=== PATIENT | female | born 1950 | race Caucasian/White ===

== ENCOUNTER 2016-10-20 10:00 | Inpatient (IN) | payer MEDICARE, BC ==
--- NOTE | 2016-10-15 01:06 | HP ---
HISTORY AND PHYSICAL: DATE OF SURGERY: 10/20/16 PROCEDURE: Left total knee arthroplasty. HISTORY OF PRESENT ILLNESS: Ms. Flores is 65-year-old female continued complaints of left knee pain secondary to advanced osteoarthritis. She has failed conservative management and has elected to proceed with a left total knee arthroplasty, which is scheduled for 10/20/16. PAST MEDICAL HISTORY: RA, Sjogren's, hypertension, high cholesterol, sleep apnea, breast cancer, skin cancer and abnormal EKG. PAST SURGICAL HISTORY: Left total hip arthroplasty, 2-level ACDF, right knee ACL reconstruction, left breast lumpectomy, partial hysterectomy, appendectomy, tonsillectomy. CURRENT MEDICATIONS: 1. Melatonin. 2. Lipitor. 3. Zoloft. 4. Multivitamin. 5. Tiazac. 6. Hydrochlorothiazide/triamterene. 7. Tenormin. 8. Coenzyme-Q10. 9. Celebrex. 10. Baby aspirin. 11. Naltrexone. 12. Gabapentin. 13. Atenolol. 14. Atorvastatin calcium. ALLERGIES: To SULFA. FAMILY HISTORY: Heart disease, rheumatoid arthritis, Alzheimer's and diabetes. SOCIAL HISTORY: She is a 65-year-old female, she lives alone. She is a retired teacher. She smoked for 30 years, but quit in 2004. She denies use of alcohol or illicit drugs. REVIEW OF SYSTEMS: A complete 14-point review of systems was reviewed with the patient, all was negative or noncontributory. PHYSICAL EXAMINATION GENERAL: She is well developed, well nourished, in no acute distress. VITAL SIGNS: She stands 5 feet 7 inches tall, weighs 205 pounds. Her blood pressure is 126/74, her heart rate is 58. HEENT: Normocephalic, atraumatic. NECK: Supple. No palpable lymph nodes. Trachea is midline. PULMONARY: Lungs are clear to auscultation bilaterally. No wheezes, rhonchi or rales. CARDIO: Regular rate and rhythm. Strong S1 and S2. No murmurs, gallops or rubs. No peripheral edema. ABDOMEN: Soft, nontender, nondistended. NEUROLOGIC: She is alert and oriented x3. Cranial nerves II through XII are intact. MUSCULOSKELETAL: Left lower extremity, the skin is intact. She has moderate joint effusion. Tenderness over the medial and lateral joint line. No varus or valgus instability. She walks with a slightly antalgic type gait favoring her left leg. Her lower extremity muscle group strengths are intact at 5/5. She has intact strength sensation to pinprick and light touch of her both legs and feet. She has 2+ dorsalis pedis pulses. ASSESSMENT AND PLAN: Ms. Flores is 65-year-old female with continued complaints of left knee pain secondary to advanced arthritis. She has failed conservative management and has elected to proceed with a left total knee arthroscopy, which is scheduled for 10/20/16. Dr. Pablo discussed the risks and benefits of the surgery with her today and all of her questions were answered. Percocet, Colace and Coumadin were sent to her pharmacy for postoperative DVT prophylaxis and pain control. She will follow up with Dr. Pablo 10 to 14 days after the surgery. KENNETH ARCHULETA [id number]/[facility] #: [id number] ARIANE
[~2016-10-20 10:00] MED LIST: Buffered Lidocaine 1% SYR 3ML* 3 ML/SYR SYRINGE INTRADERM ONE; Dexamethasone IV* 4 MG/ML 1 ML (4 MG) IV SLOW PU ONE; DiMENhydriNATE IV* 50 MG/ML VIAL IV PUSH PRN; Esmolol* 10 MG/ML 10 ML (100 mg) ONE; Famotidine IV* 10 MG/ML 2 ML (20 mg) IV ONE; HYDROmorphone INJ* 1 MG/ML CARPUJECT SYRINGE ONE; Midazolam* 1 MG/ML 2 ML VIAL (2 MG) ONE; Morphine PF AMP (0.5MG/ML)* 5 MG/10 ML AMP ONE; Ondansetron INJ* 2 MG/ML VIAL IV PRN; PROCHLORPERAZINE INJ 5 MG/ML 2 ML VIAL IV PRN; fentaNYL* 50 MCG/ML 2 ML VIAL (100 MCG VIAL) IV PRN; fentaNYL* 50 MCG/ML 2 ML VIAL (100 MCG VIAL) ONE
[2016-10-20] MEDS ORDERED: Famotidine IV* 10 MG/ML 2 ML (20 mg) ONE (10:25)
[2016-10-20] MEDS ORDERED: ceFAZolin 2 GM PREMIX (*) 2 GM/50 ML BAG IVPB ONE (10:25)
[2016-10-20] MEDS ORDERED: Dexamethasone IV* 4 MG/ML 1 ML (4 MG) ONE (10:25)
[2016-10-20] MEDS ORDERED: HYDROmorphone INJ* 1 MG/ML CARPUJECT SYRINGE ONE (11:37)
[2016-10-20] MEDS ORDERED: fentaNYL* 50 MCG/ML 2 ML VIAL (100 MCG VIAL) ONE (11:37)
[2016-10-20] MEDS ORDERED: Naloxone* 0.4 MG/ML 1 ML VIAL IV PRN (15:44)
[2016-10-20] MEDS ORDERED: PROCHLORPERAZINE INJ 5 MG/ML 2 ML VIAL IV PRN (15:44)
[2016-10-20] MEDS ORDERED: diPHENhydraMINE IV* 50 MG/ML 1 ml VIAL (BENADRYL) IV PRN (15:44)
[2016-10-20] MEDS ORDERED: Nalbuphine* 20 MG/ML 1 ML VIAL IV PRN (15:44)
[2016-10-20] MEDS ORDERED: Ondansetron INJ* 2 MG/ML VIAL IV PRN (15:44)
[2016-10-20] MEDS ORDERED: DiMENhydriNATE IV* 50 MG/ML VIAL IV PUSH PRN (15:44)
[2016-10-20] MEDS ORDERED: Polyethylene Glycol 3350* 17 GM PACKET PO PRN (15:55)
[2016-10-20] MEDS ORDERED: Bisacodyl SUPP* 10 MG SUPP PR PRN (15:55)
--- NOTE | 2016-10-20 16:36 | RAD ---
Indication: Post op LEFT total knee replacement. Comparison: July 10, 2016 radiographs. Technique: Portable AP and cross table lateral views LEFT knee. Report: Status post total knee replacement. Anterior surgical drain in place. Post-op fluid and gas is seen in the joint space and anterior subcutaneous tissues. Alignment is anatomic. No periprosthetic fracture evident. Vascular calcifications noted. IMPRESSION: Normal post-op appearance following LEFT total knee replacement.
[2016-10-20] MEDS ORDERED: Warfarin TAB(*) 6 MG PO ONE (20:00)
[2016-10-20] MEDS: ceFAZolin 1 GM in Dextrose (*) 1 GM/50 ML BAG IVPB SCH (20:05)
[2016-10-20] MEDS: Gabapentin CAP(*) 300 MG PO SCH (20:28)
[2016-10-20] MEDS: Magnesium Hydroxide LIQ* 30 ML UDC PO SCH (20:28)
[2016-10-20] MEDS: Atenolol TAB* 50 MG PO SCH (20:28)
[2016-10-20] MEDS: Docusate CAP* 100 MG PO SCH (20:28)
--- NOTE | 2016-10-20 20:36 | CONS ---
CONSULTATION REPORT: DATE OF CONSULT: 10/20/16 PRIMARY CARE PROVIDER: Ellie Carolina MD. ATTENDING PHYSICIAN WHILE IN THE HOSPITAL: Alfredo Sinclair MD (report dictated by Celestine Thompson NP). REASON FOR MEDICAL CONSULTATION: Evaluation of comorbid medical conditions. HISTORY OF PRESENT ILLNESS: Ms. Briggs is a 65-year-old female patient with a history of rheumatoid arthritis, Sjogren's, hypertension, hyperlipidemia, JN, and a history of breast cancer. She comes in to the orthopedic services today for an elective left total knee replacement. I will defer you to Dr. Pablo's H and P for details. In short, Ms. Briggs has had longstanding issues with her bilateral lower extremities. She has had pain that has been debilitating, failing outpatient management and affecting her activities of daily living. The patient sought care with Dr. Pablo. It was felt that she would benefit from a knee replacement and she was evaluated by her primary and Cardiology due to an abnormal EKG. She had a negative stress test preoperatively. She underwent the procedure today. She was evaluated in the postoperative setting. She carries again a significant medical history and we were asked to help evaluate to help manage these problems. The patient was evaluated in the PACU. She denies having any chest pain or shortness of breath. She says that her pain is well controlled. She denies having any numbness or tingling to lower extremities. She says she does not feel nauseous. She denies having any abdominal pain or any shortness of breath. PAST MEDICAL HISTORY: Significant for: 1. Rheumatoid arthritis. 2. Sjogren's. 3. Hypertension. 4. Hyperlipidemia. 5. JN. 6. Breast cancer. SURGICAL HISTORY: 1. She has had a left total hip arthroplasty. 2. Cervical fusion. 3. Right knee ACL repair. 4. Lumpectomy. 5. Partial hysterectomy. 6. Tonsillectomy. 7. Appendectomy. HOME MEDICATIONS: Include: 1. Maxzide 1 tablet p.o. daily. 2. Simvastatin 1 tablet daily. 3. Multivitamin 1 tablet daily. 4. Melatonin 3 mg p.o. at bedtime as needed. 5. Gabapentin 300 mg p.o. at bedtime. 6. Diltiazem 1 tablet p.o. daily. 7. Atenolol 50 mg p.o. daily. ALLERGIES TO MEDICATIONS: Include TOPICAL SULFA. FAMILY HISTORY: Mother had a history of [place]. Father had a history of dementia. SOCIAL HISTORY: She is a former smoker. She does not drink alcohol. Surrogate decision maker is her brother. REVIEW OF SYSTEMS: There is no documented fever. She denies having any significant weight change. There was no double vision. There is no ear discharge. She denies having any rhinorrhea. There is no sore throat. No thyroid enlargement. She denies having any chest pain. There is no orthopnea. No nocturnal dyspnea. There is no abdominal pain. No nausea. No vomiting. No dysuria. No frequency. No loss of consciousness. No pruritus and no skin ulcerations. Review of 14 systems completed, all others negative. PHYSICAL EXAM: Reveals vital signs of blood pressure 95/56, pulse 58, respirations 14, O2 sat 97%, and temperature of 98.2. Generally, at this time, Ms. Briggs is a 65-year-old female patient. She is sitting in the PACU bed. She does not appear to be in any acute distress. HEENT: Head: Atraumatic and normocephalic. Eyes: EOMs intact. Sclerae anicteric and not pale. Throat: Oral mucosa appears to be moist. No oropharyngeal erythema. Neck: Supple. Heart: Sounds S1, S2. Regular rate and rhythm. No murmurs, rubs, or gallops. Lungs were clear to auscultation bilaterally. No wheezes, rales, or rhonchi. Abdomen was soft, flat, nontender. Bowel sounds hypoactive. Extremities: Pulses were 2+ throughout. Able to move all 4 extremities with 5/5 strength. Neurologically, the patient is awake, alert, and oriented x3. Tongue midline. Technical Support Assistant are equal. No gross focal deficits. Skin: Grossly intact. DIAGNOSTIC STUDIES/LAB DATA: Labs preoperatively revealed a WBC of 7.5, RBC of 4.79, hemoglobin 14.9, hematocrit of 44, platelet count of 265. The INR was 0.86. The sodium was 139, potassium was 4.2, chloride of 100, bicarb of 31, BUN of 17, creatinine of 0.82, glucose of 81. She had a preoperative stress test, which showed a low risk study and no perfusion defects were noted. Copy is in the report. Preop chest x-ray showed hyperinflation consistent with COPD. No active cardiopulmonary disease. EKG preop showed normal sinus rhythm with abnormal R-wave progression, rate 72. No ST elevations or T-wave inversions. Old medical records were reviewed. ASSESSMENT AND PLAN: Ms. Briggs is a 65-year-old female patient coming in to the orthopedic services today for an elective left total knee replacement. Hospitalist service was asked to evaluate in consult. Recommendations at this point are: 1. Status post left total knee replacement: Defer the management to Dr. Pablo and her team. 2. Hypertension: Blood pressure is on the low side now. It is in the 90s systolic, but it is probably secondary to Duramorph. We will go ahead and continue the beta maggie with hold parameters. I will hold it if her blood pressure is less than 100 systolically or heart rate is less than 60s and I am holding her diltiazem and her Maxzide. For the time being, we will restart these when her blood pressure is able. 3. For her rheumatoid and Sjogren's, she can follow up with Dr. Fishman. She actually was on naltrexone, she said it had been helping her, but obviously while she is here on opiates, she cannot take this medication, so she can follow with her primary and her senior marketing associate for that. Does not appear to be an active issue currently. 4. Hyperlipidemia: Continue statin therapy. 5. Obstructive sleep apnea: I have ordered a CPAP. 6. Breast cancer: Continue with her current medical regimen. 7. Code status: Full code. 8. Fluids, electrolytes, and nutrition: She will be placed on a heart healthy diet. TIME SPENT: Time spent on the consult was approximately 60 minutes; greater than half the time was spent [id number] with the patient going over the plan of care with the patient and implementing plan of care. I did discuss the plan of care with my attending, Dr. Sinclair; he is in agreement. CELESTINE THOMPSON NP CC: Ellie Carolina MD; Dr. Pablo * [id number]/[facility] #: [id number] MTDD
[2016-10-20] MEDS ORDERED: Atenolol TAB* 50 MG PO SCH (21:00)
[2016-10-20] MEDS: HYPROMELLOSE BOTH EYES PRN (21:24)
[2016-10-20] MEDS: oxyCODONE/Acetamin 5/325 MG* TAB PO PRN (22:41)
[2016-10-21] MEDS: ceFAZolin 1 GM in Dextrose (*) 1 GM/50 ML BAG IVPB SCH ×2 (03:59→12:03)
[2016-10-21] MEDS: oxyCODONE/Acetamin 5/325 MG* TAB PO PRN ×3 (04:03→12:28)
[2016-10-21] MEDS ORDERED: Ondansetron INJ* 2 MG/ML VIAL IV PRN (05:00)
[2016-10-21] MEDS ORDERED: Ondansetron TAB* 4 MG PO PRN (05:00)
[2016-10-21] MEDS ORDERED: oxyCODONE/Acetamin 5/325 MG* TAB PO PRN (05:00)
[2016-10-21] MEDS ORDERED: Morphine INJ* 10 MG/ML 1 ML CARPUJECT IV PRN (05:00)
[2016-10-21] MEDS ORDERED: diPHENhydraMINE PO* 25 MG PO PRN (05:00)
[2016-10-21] MEDS ORDERED: oxyCODONE TAB* 5 MG TAB PO PRN (05:00)
[2016-10-21] MEDS ORDERED: Melatonin (NF) 3 MG TAB PO PRN (05:00)
[2016-10-21 07:12] LABS: Hematocrit 32 % (35-47); Hemoglobin 11.1 g/dl (12.0-16.0)
[2016-10-21 07:26] LABS: BUN/Creatinine Ratio 27.1 (8-20); Calcium 8.9 mg/dL (8.6-10.3); EGFR African American 107.3 (>60); EGFR Non-African American 83.5 (>60); Potassium 4.1 mmol/L (3.5-5.0)
--- NOTE | 2016-10-21 07:47 | PN ---
Progress Note - Progress Note SOAP: Subjective: Pt. is alert, pain is controlled. Objective: LLE - drain removed, 350 cc ss drainage. tip intact. distally +df/pf, full sens lt, 2+ dp pulse. Vital Signs: Temp Pulse Resp BP Pulse Ox 97.9 F 64 18 106/52 95 10/21/16 07:22 10/21/16 07:22 10/21/16 07:22 10/21/16 07:22 10/21/16 07:22 Laboratory Results - last 24 hr 10/21/16 10/21/16 10/21/16 06:50 06:50 06:51 Hgb 11.1 L Hct 32 L INR (Anticoag Therapy) 0.98 Sodium 135 Potassium 4.1 Chloride 100 L Carbon Dioxide 26 Anion Gap 9 BUN 19 Creatinine 0.70 Est GFR ( Amer) 107.3 Est GFR (Non-Af Amer) 83.5 BUN/Creatinine Ratio 27.1 H Glucose 142 H Calcium 8.9 Assessment: 65 yo F pod 1 s/p LTKA Plan: wbat lle pt/ot xrays satisfactory 8 mg coumadin tonight with lovenox bridge
[2016-10-21] MEDS: Magnesium Hydroxide LIQ* 30 ML UDC PO SCH ×2 (08:13→19:45)
[2016-10-21] MEDS: Atorvastatin* 10 MG TAB PO SCH (08:13)
[2016-10-21] MEDS: Docusate CAP* 100 MG PO SCH ×2 (08:13→19:45)
[2016-10-21] MEDS: HYPROMELLOSE BOTH EYES PRN (08:16)
[2016-10-21] MEDS ORDERED: DILTIAZEM PO SCH (09:00)
--- NOTE | 2016-10-21 12:12 | OP ---
DATE OF OPERATION: 10/20/16 - ROOM #346 DATE OF : 46 SURGEON: Dori Pablo MD. COMPUTER ENGINEERING PROFESSOR: KENNETH Barkley. ANESTHESIOLOGIST: Dr. Briggs. ANESTHESIA: Spinal with adductor nerve block. PRE-OP DIAGNOSIS: Severe degenerative osteoarthritis of the left knee joint, valgus deformity. POST-OP DIAGNOSIS: Severe degenerative osteoarthritis of the left knee joint, valgus deformity. OPERATIVE PROCEDURE: Left total knee arthroplasty. HARDWARE USED: [employer] cemented total knee hardware, two packages of Simplex bone cement were used. For the femur, a size 4 left posterior stabilized Legion femoral component. For the tibia, a size 3 left tibial base plate. For the insert, 9 mm posterior stabilized articular insert; and for the patella, a 29 mm 7.5 thickness 3-peg all poly patella. TOURNIQUET TIME: 71 minutes. COMPLICATIONS: None. ESTIMATED BLOOD LOSS: 300 cc. SPECIMENS: Bone and cartilage from the left knee joint sent to Pathology. BRIEF HISTORY/INDICATIONS: Ms. Chester Flores is a 65-year-old female with years of increasingly severe left knee pain and deformity. She failed conservative treatment with anti-inflammatories, pain medications, intraarticular injections , and physical therapy. She had radiographs showing [id number] arthritis and severe valgus deformity. She elected to undergo left total knee arthroplasty due to continued pain and decreased quality of life. Informed consent was obtained from the patient. She understood the risks of surgery included, but were not limited to, bleeding, infection, damage to nearby structures, continued pain, need for further surgery, intraoperative fracture, nerve palsy, ligament incompetence, hardware failure or loosening, stroke, heart attack, blood clot, and . She wishes to proceed. INTRAOPERATIVE FINDINGS: Intraoperatively, the patient was noted to have complete loss of cartilage and deformation in the lateral and patellofemoral compartments. She had lateral femoral condylar hypoplasia. Preop range of motion was 15 to 120 degrees of flexion, with 20 degree valgus deformity. Postoperatively, the patient had full extension to 125 degrees of flexion, with 6 degrees of valgus alignment. She did have osteopenia noted throughout the procedure. DESCRIPTION OF PROCEDURE: Ms. Chester Flores was identified in the preanesthesia unit. Her left lower extremity was marked as the correct operative side. Informed consent was signed and placed in the chart. The patient was taken to the operating room and placed under spinal anesthesia with an adductor nerve block. Vega catheter was placed. Tourniquet was placed on the left thigh. The left lower extremity was prepped and draped in the usual sterile fashion. Preop time-out was made to correctly identify the patient's side and site. Appropriate preoperative antibiotics were given within 1 hour of incision. Tourniquet was inflated until the tourniquet time for this procedure was 71 minutes. A 12 cm midline incision was made with a 10-blade and carried down to the extensor mechanism. The extensor mechanism was then incised using medial parapatellar arthrotomy, using a new 10-blade. The patella was subluxed laterally. Electrocautery was used to subperiosteally elevate soft tissue off the superomedial tibia to the mid sagittal plane. Extensive osteophytes were noted along the distal femur and patella. These were removed with a rongeur. The knee was flexed up. Anterior horn of the lateral meniscus was released. ACL was no longer visible. A drill was used to enter the distal femur. Intramedullary distal femoral cutting guide was pinned into proper position on the distal femur. Lateral femoral condylar hypoplasia was noted and accounted for. Distal femoral cut was made with an oscillating saw. Next, the external rotation guide was placed on the distal femur and the distal femur was sized to a size 4. Size 4 multi-cutting jig was pinned on the distal femur. Oscillating saw was used to make the appropriate chamfer cuts. Any bony fragments were carefully removed. Next, the PCL was sharply released. The tibia was subluxed anteriorly. Extramedullary tibial cutting guide was pinned on the proximal tibia. Oscillating saw was used to make the appropriate proximal tibial cut. The bone was carefully removed. This cut was made perpendicular to the mechanical axis of the tibia. The knee was brought out into full extension. A spacer block had good fit. There was significant tightness laterally. At this time, the posterior capsule was sharply released with electrocautery along the bone edge. Any osteophytes were carefully removed laterally. A 15-blade was used to perform pie-crusting technique of the LCL. At this point a spacer block was placed and there was better medial lateral ligamentous balancing. Good flexion and extension gap balancing. The knee was flexed up. Lamina coordinator of placement was placed both medially and laterally. Any remaining meniscus was carefully removed using electrocautery. Curved osteotome was used to remove any osteophytes along the posterior femoral condyles. The knee was flexed up. A size 4 left femoral trial was impacted onto the distal femur. The box for the posterior stabilized implant was prepared using a reamer and box cut osteotome. A size 3 tibial tray and 9-mm insert trial were placed and the knee was taken through a range of motion. There was full extension to 130 degrees of flexion, with good patello-femoral tracking. The patella was everted. 7 mm of patellar bone and cartilage were carefully removed from the patella using an oscillating saw. The patella was sized to a size 29. The 3 peg holes were drilled through to size 29 guide. A 7.5 thickness size 29 patella trial was placed and the knee was taken through a range of motion. There was good patellofemoral tracking. All trials were carefully removed. The tibia was subluxed anteriorly and sized to a size 3. The size 3 keel punch was used to prepare the proximal tibia. All bony cut surfaces were copiously irrigated with sterile saline and dried. Final implants were cemented into place, starting with the tibia, followed by the femur, and last the patella. A 9-mm insert trial was placed and the knee was brought out into full extension. The cement was allowed to fully cure and the tourniquet was turned down at 71 minutes. Once the cement was fully cured, the insert trial was removed. Electrocautery was used to obtain meticulous hemostasis. Any excess cement was carefully removed. A 9-mm posterior stabilized insert trial was chosen as the final implant and this was locked into position on the tibial tray. Stability of the insert was checked and rechecked and noted to be stable. The patient's knee was copiously irrigated with sterile saline. The extensor mechanism was closed using interrupted #1 Vicryl over a medium Hemovac drain. The rest of the incision was closed in a layered fashion using 0 and 2-0 Vicryls. The skin was closed using running 3-0 nylon suture. Sterile Xeroform , 4x4s, and Webril were used to cover the incision. Bobo wrap and cold pack were placed over this. The patient's anesthesia was reversed without difficulty. She was taken to the PACU in stable condition. Intended weightbearing will be weightbearing as tolerated. Intended DVT prophylaxis will be Coumadin with a Lovenox bridge. [id number]/[facility] #: [id number] [facility] HOSPITALMaribell
[2016-10-21] MEDS ORDERED: traMADol TAB* 50 MG PO PRN (14:13)
[2016-10-21] MEDS: Enoxaparin(*) 30 MG/0.3 ML SYR SUBCUT SCH (16:02)
[2016-10-21] MEDS ORDERED: Warfarin TAB(*) 4 MG PO ONE (17:00)
--- NOTE | 2016-10-21 19:32 | PN ---
Subjective Date of Service: 10/21/16 Interval History: This is a 65 yo female s/p L TKR with h/o RA, Sjogrens, HTN, HTN, JN. She reports that she is doing quite well post operatively working with PT. No abdominal pain, CP, n/v. She developed itching and flushing in her face last night and it seemed to progress this afternoon. No angioedema, rash or dyspnea. She believes it's related to the Percocet, she does not recall taking any prior opiates but reports tolerating tramadol well with prior THR. Objective Active Medications: Acetaminophen (Tylenol Tab*) 650 mg PO Q4H PRN PRN Reason: PAIN OR TEMPERATURE Atenolol (Tenormin Tab*) 50 mg PO BEDTIME [facility] Last Admin: 10/20/16 20:28 Dose: 50 mg Atorvastatin Calcium (Lipitor*) 5 mg PO DAILY [facility] Last Admin: 10/21/16 08:13 Dose: 5 mg Bisacodyl (Dulcolax Supp*) 10 mg MI DAILY PRN PRN Reason: constipation Diphenhydramine HCl (Benadryl Po*) 25 mg PO Q6H PRN PRN Reason: itching Last Admin: 10/21/16 14:07 Dose: 25 mg Docusate Sodium (Colace Cap*) 100 mg PO BID [facility] Last Admin: 10/21/16 08:13 Dose: 100 mg Enoxaparin Sodium (Lovenox(*)) 30 mg SUBCUT Q24H [facility] Last Admin: 10/21/16 16:02 Dose: 30 mg Gabapentin (Neurontin Cap(*)) 300 mg PO BEDTIME [facility] Last Admin: 10/20/16 20:28 Dose: 300 mg Lactated Ringer's (Lactated Ringers 1000 Ml Bag*) 1,000 mls @ 100 mls/hr IV PER RATE [facility] Last Admin: 10/21/16 06:38 Dose: 100 mls/hr Lactulose (Lactulose*) 30 ml PO Q6H PRN PRN Reason: constipation Magnesium Hydroxide (Milk Of Magnesia Liq*) 30 ml PO BID [facility] Last Admin: 10/21/16 08:13 Dose: 30 ml Melatonin (Melatonin (Nf)) 3 mg PO BEDTIME PRN PRN Reason: INSOMNIA Morphine Sulfate (Morphine Inj (Syringe)*) 5 mg IV Q2H PRN PRN Reason: PAIN - BREAKTHROUGH Pto Nf Med* Hypromellose (Ophth) [Genteal Severe] 1 Drop) 1 drop BOTH EYES QID PRN PRN Reason: DRY EYE Last Admin: 10/21/16 08:16 Dose: 1 drop Ondansetron HCl (Zofran Inj*) 4 mg IV Q6H PRN PRN Reason: nausea Ondansetron HCl (Zofran Tab*) 4 mg PO Q6H PRN PRN Reason: NAUSEA Pharmacy Profile Note (Coumadin Daily Reminder*) 1 note FOLLOW UP 1700 EALR Last Admin: 10/21/16 16:48 Dose: 1 note Polyethylene Glycol/Electrolytes (Miralax*) 17 gm PO DAILY PRN PRN Reason: Constipation Tramadol HCl (Ultram*) 100 mg PO Q6H PRN PRN Reason: PAIN Vital Signs: Temp Pulse Resp BP Pulse Ox 98.5 F 69 16 118/55 94 10/21/16 15:35 10/21/16 15:35 10/21/16 18:32 10/21/16 15:35 10/21/16 16:33 Appearance: Well appearing, in NAD. Very pleasant Respiratory: Symmetrical Chest Expansion and Respiratory Effort, Clear to Auscultation Cardiovascular: NL Sounds; No Murmurs; No JVD, RRR Abdominal: NL Sounds; No Tenderness; No Distention Extremities: No Edema Skin: - - face is slightly flushed, otherwise no rash appreciated Neurological: Alert and Oriented x 3 Result Diagrams: 10/21/16 06:50 10/21/16 06:50 Assess/Plan/Problems-Billing Assessment: This is a 65 yo female s/p L TKR by Dr Pablo with a h/o RA, Sjorgrens, HTN, HLD , JN. Hospitalists consulting for medical co-management - Patient Problems (1) Status post total knee replacement, left Comment: POD #1 s/p L TKR DVT prophylaxis and dispo per surg (2) Itching due to drug Comment: No evidence of hives or anaphylaxis Perioperative abx have been completed May be Percocet Will trial stopping oxycodone product and use Tramadol for pain control, which she has been successful with in the past (3) Rheumatoid arthritis Comment: Managed with low dose naltrexone, being held post op for appropriate pain management (4) JN (obstructive sleep apnea) Comment: Using home CPAP machine (5) Sjogrens syndrome (6) Hypertension Comment: Still mildly hypotensive Cont to hold home antihypertensives (7) Hyperlipidemia Status and Disposition: Discharge planning per surg. No acute medical concerns
[2016-10-21] MEDS: Acetaminophen TAB* 325 MG PO PRN (19:44)
[2016-10-21] MEDS: Atenolol TAB* 50 MG PO SCH (19:45)
[2016-10-21] MEDS: Gabapentin CAP(*) 300 MG PO SCH (19:45)
[2016-10-21] MEDS: traMADol TAB* 50 MG PO PRN (22:30)
[2016-10-22] MEDS: Acetaminophen TAB* 325 MG PO PRN (02:34)
[2016-10-22] MEDS: traMADol TAB* 50 MG PO PRN (04:41)
[2016-10-22 07:06] LABS: Hematocrit 29 % (35-47); Hemoglobin 9.9 g/dl (12.0-16.0)
[2016-10-22] MEDS ORDERED: HYDROcodone/ACETAMIN 5-325 MG* 1 TAB PO PRN (08:09)
--- NOTE | 2016-10-22 08:14 | PN ---
Progress Note - Progress Note SOAP: Subjective: []Patient seen OOB in chair. Had an allergic reaction yesterday. Face was pink and warm, body puritis was present, all now resolved. She thinks it was due to the antibiotics not the narcotics as she has not had issues with narcotics in the past. The tramadol is not helping her pain as well. She would like to try hydrocodone. Plans on discharge home tomorrow. Objective: [] Vital Signs Temp 99.2 F 10/22/16 07:19 Pulse 66 10/22/16 07:19 Resp 16 10/22/16 07:19 BP 102/57 10/22/16 07:19 Pulse Ox 98 10/22/16 07:19 Intake & Output 10/21/16 10/22/16 10/22/16 18:59 06:59 18:59 Intake Total 1582 1140 Output Total 750 550 250 Balance 832 590 -250 Intake: IV Fluids 397 LR 397 IVPB 55 LR 55 Oral 1130 1140 Output: Urine 400 550 250 Vega 350 Other: Date of Last Bowel 10/21/16 Movement # Bowel Movements 0 Vital Signs Temp 99.2 F 10/22/16 07:19 Pulse 66 10/22/16 07:19 Resp 16 10/22/16 07:19 BP 102/57 10/22/16 07:19 Pulse Ox 98 10/22/16 07:19 Intake & Output 10/21/16 10/22/16 10/22/16 18:59 06:59 18:59 Intake Total 1582 1140 Output Total 750 550 250 Balance 832 590 -250 Intake: IV Fluids 397 LR 397 IVPB 55 LR 55 Oral 1130 1140 Output: Urine 400 550 250 Vega 350 Other: Date of Last Bowel 10/21/16 Movement # Bowel Movements 0 Left knee dressings removed Incision benign calf non tender and soft Guanako's negative +DF/PF Neuro intact new dressings applied Assessment: []s/p Left total knee arthroplasty POD #2 Plan: []PT/OT WBAT Hydrocodone Coumadin 4mg today Home tomorrow
[2016-10-22] MEDS: Atorvastatin* 10 MG TAB PO SCH (08:26)
[2016-10-22] MEDS: Docusate CAP* 100 MG PO SCH ×2 (08:26→20:56)
[2016-10-22] MEDS: Magnesium Hydroxide LIQ* 30 ML UDC PO SCH ×2 (08:43→22:37)
[2016-10-22] MEDS: HYDROcodone/ACETAMIN 5-325 MG* 1 TAB PO PRN ×3 (08:46→16:14)
--- NOTE | 2016-10-22 13:41 | PN ---
Subjective Date of Service: 10/22/16 Interval History: Patient denies any acute complaints. She reports her facial flushing and itching have resolved. She did not get adequate pain relief from the Tramadol. She was started on [place] by ortho this am and is tolerating this well. Denies CP, SOB, abd pain, n/v. Objective Active Medications: Acetaminophen (Tylenol Tab*) 650 mg PO Q4H PRN PRN Reason: PAIN OR TEMPERATURE Last Admin: 10/22/16 02:34 Dose: 650 mg Hydrocodone Bitart/Acetaminophen ([place] 5-325 Tab*) 1 tab PO Q3H PRN PRN Reason: PAIN - MODERATE Last Admin: 10/22/16 12:30 Dose: 1 tab Hydrocodone Bitart/Acetaminophen ([place] 5-325 Tab*) 2 tab PO Q3H PRN PRN Reason: moderate to severe pain Atenolol (Tenormin Tab*) 50 mg PO BEDTIME [facility] Last Admin: 10/21/16 19:45 Dose: 50 mg Atorvastatin Calcium (Lipitor*) 5 mg PO DAILY [facility] Last Admin: 10/22/16 08:26 Dose: 5 mg Bisacodyl (Dulcolax Supp*) 10 mg CO DAILY PRN PRN Reason: constipation Diphenhydramine HCl (Benadryl Po*) 25 mg PO Q6H PRN PRN Reason: itching Last Admin: 10/21/16 14:07 Dose: 25 mg Docusate Sodium (Colace Cap*) 100 mg PO BID [facility] Last Admin: 10/22/16 08:26 Dose: 100 mg Enoxaparin Sodium (Lovenox(*)) 30 mg SUBCUT Q24H [facility] Last Admin: 10/21/16 16:02 Dose: 30 mg Gabapentin (Neurontin Cap(*)) 300 mg PO BEDTIME [facility] Last Admin: 10/21/16 19:45 Dose: 300 mg Lactated Ringer's (Lactated Ringers 1000 Ml Bag*) 1,000 mls @ 100 mls/hr IV PER RATE [facility] Last Admin: 10/21/16 06:38 Dose: 100 mls/hr Lactulose (Lactulose*) 30 ml PO Q6H PRN PRN Reason: constipation Magnesium Hydroxide (Milk Of Magnesia Liq*) 30 ml PO BID [facility] Last Admin: 10/22/16 08:43 Dose: Not Given Melatonin (Melatonin (Nf)) 3 mg PO BEDTIME PRN PRN Reason: INSOMNIA Morphine Sulfate (Morphine Inj (Syringe)*) 5 mg IV Q2H PRN PRN Reason: PAIN - BREAKTHROUGH Pto Nf Med* Hypromellose (Ophth) [Genteal Severe] 1 Drop) 1 drop BOTH EYES QID PRN PRN Reason: DRY EYE Last Admin: 10/21/16 08:16 Dose: 1 drop Ondansetron HCl (Zofran Inj*) 4 mg IV Q6H PRN PRN Reason: nausea Ondansetron HCl (Zofran Tab*) 4 mg PO Q6H PRN PRN Reason: NAUSEA Pharmacy Profile Note (Coumadin Daily Reminder*) 1 note FOLLOW UP 1700 [facility] Last Admin: 10/21/16 16:48 Dose: 1 note Polyethylene Glycol/Electrolytes (Miralax*) 17 gm PO DAILY PRN PRN Reason: Constipation Tramadol HCl (Ultram*) 100 mg PO Q6H PRN PRN Reason: PAIN Last Admin: 10/22/16 04:41 Dose: 100 mg Warfarin Sodium (Coumadin Tab(*)) 4 mg PO ONCE@1700 ONE PRN Reason: Protocol Stop: 10/22/16 17:01 Vital Signs: Temp Pulse Resp BP Pulse Ox 98.1 F 63 16 111/58 96 10/22/16 11:46 10/22/16 11:46 10/22/16 12:30 10/22/16 11:46 10/22/16 11:46 Oxygen Devices in Use Now: None Appearance: Patient appears well. She is sitting at the side of her bed finishing lunch. She is in NAD Neck: NL Appearance and Movements; NL JVP Respiratory: Symmetrical Chest Expansion and Respiratory Effort Cardiovascular: NL Sounds; No Murmurs; No JVD, RRR Abdominal: NL Sounds; No Tenderness; No Distention Extremities: No Edema Skin: No Rash or Ulcers Neurological: Alert and Oriented x 3 Result Diagrams: 10/22/16 06:39 10/21/16 06:50 Assess/Plan/Problems-Billing Assessment: This is a 65 yo female s/p L TKR by Dr Pablo with a h/o RA, Sjorgrens, HTN, HLD , JN. Hospitalists consulting for medical co-management - Patient Problems (1) Status post total knee replacement, left Comment: POD #2 s/p L TKR DVT prophylaxis and dispo per surg (2) Itching due to drug Comment: Now resolved No evidence of hives or anaphylaxis Likely drug related Unsure which medication was offending, possibly her periop abx She is now tolerating hydrocodone well, tramadol was ineffective in providing complete pain relief (3) Rheumatoid arthritis Comment: Managed with low dose naltrexone, being held post op for appropriate pain management (4) JN (obstructive sleep apnea) Comment: Using home CPAP machine (5) Sjogrens syndrome (6) Hypertension Comment: Still mildly hypotensive Cont to hold home antihypertensives (7) Hyperlipidemia Status and Disposition: Discharge planning per surg. No acute medical concerns
[2016-10-22] MEDS: Enoxaparin(*) 30 MG/0.3 ML SYR SUBCUT SCH (16:15)
[2016-10-22] MEDS ORDERED: Warfarin TAB(*) 4 MG PO ONE (17:00)
[2016-10-22] MEDS: Atenolol TAB* 50 MG PO SCH (20:56)
[2016-10-22] MEDS: Gabapentin CAP(*) 300 MG PO SCH (20:56)
[2016-10-23] MEDS: HYDROcodone/ACETAMIN 5-325 MG* 1 TAB PO PRN ×2 (01:48→07:29)
[2016-10-23 07:12] LABS: Hematocrit 30 % (35-47); Hemoglobin 10.3 g/dl (12.0-16.0)
[2016-10-23] MEDS: Docusate CAP* 100 MG PO SCH (07:29)
[2016-10-23] MEDS: Magnesium Hydroxide LIQ* 30 ML UDC PO SCH (07:43)
[2016-10-23] MEDS: Atorvastatin* 10 MG TAB PO SCH (08:37)
[2016-10-23] MEDS ORDERED: Triamterene/HCTZ 75-50 MG* TAB PO SCH (09:00)
[2016-10-23] MEDS ORDERED: Diltiazem CD CAP* 180 MG PO SCH (09:00)
[2016-10-23] MEDS: traMADol TAB* 50 MG PO PRN (12:57)
[2016-10-23 14:09] VITALS: BP 140/60
--- NOTE | 2016-10-23 14:37 | PN ---
Subjective Date of Service: 10/23/16 Interval History: Patient reports she was having more pain earlier this afternoon. She stated that she tried to go longer between pain medications. Her pain is controlled again now. She denies any new complaints. Continue to deny CP, SOB, N/V. Doing well with PT. Plan for discharge today. Objective Active Medications: Acetaminophen (Tylenol Tab*) 650 mg PO Q4H PRN PRN Reason: PAIN OR TEMPERATURE Last Admin: 10/22/16 02:34 Dose: 650 mg Hydrocodone Bitart/Acetaminophen ([place] 5-325 Tab*) 1 tab PO Q3H PRN PRN Reason: PAIN - MODERATE Last Admin: 10/23/16 07:29 Dose: 1 tab Hydrocodone Bitart/Acetaminophen ([place] 5-325 Tab*) 2 tab PO Q3H PRN PRN Reason: moderate to severe pain Last Admin: 10/22/16 20:52 Dose: 2 tab Atenolol (Tenormin Tab*) 50 mg PO BEDTIME [facility] Last Admin: 10/22/16 20:56 Dose: 50 mg Atorvastatin Calcium (Lipitor*) 5 mg PO DAILY [facility] Last Admin: 10/23/16 08:37 Dose: 5 mg Bisacodyl (Dulcolax Supp*) 10 mg AL DAILY PRN PRN Reason: constipation Diltiazem HCl (Cardizem Cd Cap*) 180 mg PO DAILY [facility] Last Admin: 10/23/16 07:43 Dose: Not Given Diphenhydramine HCl (Benadryl Po*) 25 mg PO Q6H PRN PRN Reason: itching Last Admin: 10/21/16 14:07 Dose: 25 mg Docusate Sodium (Colace Cap*) 100 mg PO BID [facility] Last Admin: 10/23/16 07:29 Dose: 100 mg Enoxaparin Sodium (Lovenox(*)) 30 mg SUBCUT Q24H [facility] Last Admin: 10/22/16 16:15 Dose: 30 mg Gabapentin (Neurontin Cap(*)) 300 mg PO BEDTIME [facility] Last Admin: 10/22/16 20:56 Dose: 300 mg Lactulose (Lactulose*) 30 ml PO Q6H PRN PRN Reason: constipation Last Admin: 10/23/16 07:30 Dose: 30 ml Magnesium Hydroxide (Milk Of Magnesia Liq*) 30 ml PO BID [facility] Last Admin: 10/23/16 07:43 Dose: Not Given Melatonin (Melatonin (Nf)) 3 mg PO BEDTIME PRN PRN Reason: INSOMNIA Morphine Sulfate (Morphine Inj (Syringe)*) 5 mg IV Q2H PRN PRN Reason: PAIN - BREAKTHROUGH Pto Nf Med* Hypromellose (Ophth) [Genteal Severe] 1 Drop) 1 drop BOTH EYES QID PRN PRN Reason: DRY EYE Last Admin: 10/21/16 08:16 Dose: 1 drop Ondansetron HCl (Zofran Inj*) 4 mg IV Q6H PRN PRN Reason: nausea Ondansetron HCl (Zofran Tab*) 4 mg PO Q6H PRN PRN Reason: NAUSEA Pharmacy Profile Note (Coumadin Daily Reminder*) 1 note FOLLOW UP 1700 [facility] Last Admin: 10/22/16 17:40 Dose: 1 note Polyethylene Glycol/Electrolytes (Miralax*) 17 gm PO DAILY PRN PRN Reason: Constipation Tramadol HCl (Ultram*) 100 mg PO Q6H PRN PRN Reason: PAIN Last Admin: 10/23/16 12:57 Dose: 100 mg Triamterene/HCTZ (Maxzide 75-50*) 1 tab PO DAILY [facility] Last Admin: 10/23/16 07:43 Dose: Not Given Vital Signs: Temp Pulse Resp BP Pulse Ox 98.7 F 73 16 140/60 98 10/23/16 11:29 10/23/16 11:29 10/23/16 12:57 10/23/16 11:29 10/23/16 11:29 Oxygen Devices in Use Now: None Appearance: Well appearing, in NAD Neck: NL Appearance and Movements; NL JVP Respiratory: Symmetrical Chest Expansion and Respiratory Effort Cardiovascular: NL Sounds; No Murmurs; No JVD, RRR Abdominal: NL Sounds; No Tenderness; No Distention Extremities: No Edema Skin: No Rash or Ulcers Neurological: Alert and Oriented x 3 Result Diagrams: 10/23/16 06:33 10/21/16 06:50 Assess/Plan/Problems-Billing Assessment: This is a 65 yo female s/p L TKR by Dr Pablo with a h/o RA, Sjorgrens, HTN, HLD , JN. Hospitalists consulting for medical co-management - Patient Problems (1) Status post total knee replacement, left Comment: POD #3 s/p L TKR DVT prophylaxis and dispo per surg Discharge planned for later today (2) Itching due to drug Comment: Now resolved No evidence of hives or anaphylaxis Likely drug related Unsure which medication was offending, possibly her periop abx She is now tolerating hydrocodone well, tramadol was ineffective in providing complete pain relief (3) Rheumatoid arthritis Comment: Managed with low dose naltrexone, being held post op for appropriate pain management (4) JN (obstructive sleep apnea) Comment: Using home CPAP machine (5) Sjogrens syndrome (6) Hypertension Comment: Now normotensive May resume home antihypertensives (7) Hyperlipidemia Status and Disposition: Discharge planned for later today. No acute medical concerns, resume home medications
--- NOTE | 2016-10-27 22:07 | PN ---
Progress Note - Progress Note SOAP: Subjective: [65 year old female s/p LEFT total knee arthroplasty. Feeling well overall, no complaints. Eager for DC ] Objective: [General- Well appearing, NAD, sitting comfortably MSK- L incision D/C/I, no erythema, sutures in place. neg homans b/l, + DF/ PF b/l LE's, sensation intact to light touch b/l. DP 2+ L ] Vital Signs Temp Pulse Resp BP Pulse Ox 98.7 F 73 16 140/60 98 10/23/16 11:29 10/23/16 11:29 10/23/16 14:57 10/23/16 11:29 10/23/16 11:29 Assessment: [65 year old female s/p LEFT total knee arthroplasty POD#3 ] Plan: [- DC to home - CONtinue coumadin for DVT prophylaxis - FU with Dr Pablo within 10-14 days Date of Service- 10/23/2016 @ 8:40 AM ]
--- NOTE | 2016-10-28 19:37 | DS ---
DISCHARGE SUMMARY: DATE OF ADMISSION: 10/20/16 DATE OF DISCHARGE: 10/23/16 CHIEF COMPLAINT: 1. Left knee pain secondary to degenerative osteoarthritis. 2. Rheumatoid arthritis. 3. Sjogren's. 4. Hypertension. 5. High cholesterol. 6. Sleep apnea. 7. Breast cancer. 8. Skin cancer. DISCHARGE DIAGNOSES: 1. Status post left knee total arthroplasty. 2. Rheumatoid arthritis. 3. Sjogren's. 4. Hypertension. 5. Elevated cholesterol. 6. Sleep apnea. 7. History of breast cancer. 8. History of skin cancer. PROCEDURE: Left total knee arthroplasty. CONSULTATION: 1. Physical Therapy. 2. Occupational Therapy. 3. Medicine. BRIEF HISTORY: Mr. Chester Flores is a very pleasant 65-year-old female, who presented with severe en d-stage degenerative osteoarthritis of the left knee who failed conservative treatment and elected t o go undergo a left total knee arthroplasty on 10/20/[address] Dori Pablo. HOSPITAL COURSE: The patient was admitted to [facility] on 10/20/16 and underwent an unc omplicated left total knee arthroplasty. Postoperatively, she recovered in the Surgical Short-Stay Unit. On postoperative day #2, her Vega was removed and she was voiding on her own without difficu lty. She was advanced to a regular diet and her pain was controlled with p.o. Percocet. She was re started on her home medications. Her labs and vital signs remain stable. She was able to weightbea r as tolerated on the left lower extremity. She advanced appropriately with Physical Therapy and Oc cupational Therapy. Her DVT prophylaxis was managed with Lovenox and Coumadin until she reached a t herapeutic INR. By postoperative day #3, she was ready for discharge and was deemed orthopedically and medically stable. She advanced well with Physical Therapy and Occupational Therapy without diff iculty. PHYSICAL EXAMINATION: General: Well appearing, in no acute distress. Alert and oriented. Sitting in chair comfortably. Musculoskeletal: Left knee incisions are clean, dry, and intact. No erythe ma around the suture site, which had been placed over the left knee. Negative Homans sign bilateral ly. Positive dorsiflexion and plantar flexion bilateral lower extremities. Sensation is intact to light touch grossly bilaterally. Dorsalis pedis pulses are 2+ on the left. Vital Signs: Temperatur e 98.7, pulse 73, respirations 16, blood pressure 140/60, and pulse oxygenation 98% on room. DIAGNOSTIC STUDIES/LAB DATA: Laboratory results on date of discharge: Hemoglobin and hematocrit 10 .3 and 30. INR of 1.93. DISCHARGE MEDICATIONS: 1. Colace 100 mg p.o. b.i.d. 2. Atenolol 50 mg p.o. at bedtime. 3. Diltiazem 180 mg p.o. daily. 4. Gabapentin 300 mg p.o. at bedtime. 5. Percocet 5/325 mg 1 to 2 tablets every 4 hours p.r.n. pain. 6. Hypromellose 0.3 gel to both eyes q.i.d. 7. Melatonin 3 mg p.o. at bedtime. 8. Daily multivitamin 1 tablet p.o. daily. 9. Simvastatin 10 mg 1 tablet p.o. daily. 10. Maxzide 1 tablet p.o. daily. 11. Coumadin 2 mg tablets 1 to 2 tablets as directed every day at 5 p.m. 12. Tramadol 100 mg p.o. q.6 hours. CONDITION ON DISCHARGE: Stable. DISCHARGE INSTRUCTIONS: Ms. Chester Flores is a very pleasant 65-year-old female, postoperative day # 3 status post left total knee replacement, which was uncomplicated. She is orthopedically and medic ally stable for discharged to home with home services. Her labs and vital signs are stable. She wi ll restart her home medications and will take Coumadin as prescribed. She will have INR draws on and with visiting home nurse. She will remain weightbearing as tolerated on the left lower extremity. She will have home physical therapy twice a week. She will take Percocet for pain control and Colace as needed to prevent constipation. She will follow up with Dr. Pablo in [facility] 10 to 14 days for incision check and suture removal. She was instructed to go immediately to the ER should she develop chest pain or shortness of breath. Should she develop fever, increasing pain, or redness on the incision site, she is to call the office immediately. KENNETH JIMENEZ [id number]/[facility] #: [id number]
== END 2016-10-23 15:25 | disposition home health service (06) | DRG 470 ==
LOC: AA 10:16 → SSU 19:10
PROVIDERS: ADMIT Orthopaedic Surgery Adult Reconstructive Orthopaedic Surgery; ATTEND Orthopaedic Surgery Adult Reconstructive Orthopaedic Surgery
PROC: 0SRD0J9 Replacement of Left Knee Joint with Synthetic Substitute, Cemented, Open Approach (ICD-10-PCS; principal; 2016-10-20 13:30)
DX: M17.12 Unilateral primary osteoarthritis, left knee (principal); I95.9 Hypotension, unspecified; M47.12 Other spondylosis with myelopathy, cervical region; M06.9 Rheumatoid arthritis, unspecified; M35.00 Sjogren syndrome, unspecified; I10 Essential (primary) hypertension; Z85.3 Personal history of malignant neoplasm of breast; Z85.828 Personal history of other malignant neoplasm of skin; Z96.642 Presence of left artificial hip joint; Z88.2 Allergy status to sulfonamides; Z82.49 Family history of ischemic heart disease and other diseases of the circulatory system; Z83.3 Family history of diabetes mellitus; Z81.8 Family history of other mental and behavioral disorders; Z82.61 Family history of arthritis; Z87.891 Personal history of nicotine dependence; G47.33 Obstructive sleep apnea (adult) (pediatric); F32.9 Major depressive disorder, single episode, unspecified; F41.9 Anxiety disorder, unspecified; M21.062 Valgus deformity, not elsewhere classified, left knee; L29.9 Pruritus, unspecified; E78.5 Hyperlipidemia, unspecified; T50.905A Adverse effect of unspecified drugs, medicaments and biological substances, initial encounter
CPT/HCPCS: 36415; 80048; 85014; 85018; 85610; 88305; 88311; A9270-GY; C1776; J0690; J1100; J1170; J1650; J2250; J3010

== ENCOUNTER 2016-12-23 13:20 | Emergency (ER) | payer MEDICARE, BC ==
--- NOTE | 2016-12-23 16:49 | ED ---
Lower Extremity - HPI Summary HPI Summary: Pt here w/ acute onset Rt foot drop. Noticed sharp pain along lateral aspect of knee today - this traveled down along lateral side of leg/motta. She has since noticed a progression of weakness with lifting her foot and decreased sensation over the top of her foot. She denies acute trauma but does report she's been more active since getting her Lt TKR and has been "dragging" her Rt LE along for the ride as she can finally garden, etc. H/o Rt TKR as well but waiting on a revision soon. Reports significant h/o RA and "grows osteophytes like hair". Also has h/o Rt THR 6 yrs ago - no complications since. She has been taking ibuprofen w/o relief of new onset Rt leg sx. When asked if she has back pain, comments she has some "sciatica going on", shooting down her Rt hamstring. No known h/o back issues but states she wouldn't be surprised if she has arthritis here too. No acute injuries to back either. - History of Current Complaint Chief Complaint: EDExtremityLower Stated Complaint: RIGHT KNEE PAIN Time Seen by Provider: 12/23/16 14:16 Hx Obtained From: Patient Pain Intensity: 8 - Allergies/Home Medications Allergies/Adverse Reactions: Allergies Allergy/AdvReac Type Severity Reaction Status Date / Time Sulfa Drugs Allergy Severe Hives Verified 10/20/16 10:42 PMH/Surg Hx/FS Hx/Imm Hx Previously Healthy: Yes Endocrine/Hematology History: Denies: Hx Diabetes, Hx Thyroid Disease Cardiovascular History: Reports: Hx Hypertension Denies: Hx Hypercholesterolemia, Hx Pacemaker/ICD, Hx Peripheral Vascular Disease Respiratory History: Reports: Hx Sleep Apnea - Current CPAP user. Denies: Hx Asthma, Hx Chronic Obstructive Pulmonary Disease (COPD) GI History: Denies: Hx Ulcer Musculoskeletal History: Reports: Hx Arthritis - HANDS/FEET/KNEES, Hx Bursitis - BUTTOCKS, Other Musculoskeletal History - (right) hip replacement; Lt TKR; Rt TKR Sensory History: Reports: Hx Contacts or Glasses Denies: Hx Hearing Aid Opthamlomology History: Reports: Hx Contacts or Glasses Neurological History: Denies: Hx Headaches Psychiatric History: Reports: Hx Anxiety - ON DAILY MED, Hx Depression - meds, doing ,uch better after CPAP therapy Denies: Hx Panic Disorder, Hx Schizophrenia - Cancer History Cancer Type, Location and Year: BREAST CA 2003 Hx Chemotherapy: Yes - 2003 BREAST CANCER - Surgical History Surgery Procedure, Year, and Place: 1955 T&A. 1972 ABD. SURGERY-PARTIAL BOWEL RESECTION; [facility]. RT KNEE SCOPE [facility]. RT ACL REPAIR [facility]. 2007 RIGHT TOTAL HIP [facility]. 2003 LEFT BREAST CANCER [facility]. 2004 CSP LAMINECTOMY/ FUSION. 2011 RT CARPAL TUNNEL RELEASE. RIGHT TOTAL KNEE REPLACEMENT. APPENDECTOMY Hx Anesthesia Reactions: Yes - 2007 WOKE UP SHIVERING & SEVERE N/V Infectious Disease History: No Infectious Disease History: Denies: Hx Clostridium Difficile, Hx Hepatitis, Hx Human Immunodeficiency Virus (HIV), Hx of Known/Suspected MRSA, Hx Shingles, Hx Tuberculosis, Hx Known/ Suspected VRE, Hx Known/Suspected VRSA, History Other Infectious Disease, Traveled Outside the [place] in Last 30 Days - Family History Known Family History: Positive: Hypertension - Social History Alcohol Use: None Hx Substance Use: No Substance Use Type: Reports: None Hx Tobacco Use: No Smoking Status (MU): Former Smoker Review of Systems Constitutional: Negative Negative: Fever, Chills Cardiovascular: Negative Negative: Chest Pain Respiratory: Negative Negative: Shortness Of Breath Positive: no symptoms reported Musculoskeletal: Other - see HPI Skin: Negative Negative: Rash, Bruising Positive: Weakness, Paresthesia - see HPI Psychological: Normal - concerned All Other Systems Reviewed And Are Negative: Yes Physical Exam Triage Information Reviewed: Yes Vital Signs On Initial Exam: Initial Vitals Temp Pulse Resp BP Pulse Ox 97.6 F 79 19 159/91 99 12/23/16 13:25 12/23/16 13:25 12/23/16 13:25 12/23/16 13:25 12/23/16 13:25 Vital Signs Reviewed: Yes Appearance: Positive: Well-Appearing, No Pain Distress, Well-Nourished Skin: Positive: Warm, Dry - old healed surgical scars over Rt knee - no erythema , no ecchymosis, no lesions Head/Face: Positive: Normal Head/Face Inspection Eyes: Positive: Normal, EOMI, Conjunctiva Clear ENT: Positive: Hearing grossly normal Respiratory/Lung Sounds: Positive: Breath Sounds Present Cardiovascular: Positive: Normal, Pulses are Symmetrical in both Upper and Lower Extremities. Negative: Leg Edema Left, Leg Edema Right Musculoskeletal: Positive: Limited @. Negative: Strength/ROM Intact - see below Neurological: Positive: Alert, Oriented to Person Place, Time, CN Intact II-III , Reflexes Intact. Negative: Sensory/Motor Intact - decreased sensation w/ gross touch over Rt dorsal foot compared to Lt dorsal foot; Rt foot with inability to dorsiflex - passive dorsiflexion is w/ rigidity but is non-painful ; pt can plantar flex and strength intact; Knee, hip and spine w/ FROM Psychiatric: Positive: Normal - [place] Coma Scale Coma Scale Total: 15 Diagnostics - Vital Signs Vital Signs Temp Pulse Resp BP Pulse Ox 12/23/16 14:44 99 F 65 15 138/64 99 12/23/16 13:25 97.6 F 79 19 159/91 99 - Laboratory Lab Statement: Any lab studies that have been ordered have been reviewed, and results considered in the medical decision making process.
--- NOTE | 2016-12-23 16:52 | RAD ---
INDICATION: Right sciatic pain with foot drop. COMPARISON: There are no prior studies available for comparison. TECHNIQUE: Axial and sagittal T1 and T2 and coronal T2-weighted images of the lumbar spine were obtained. FINDINGS: The vertebra are in normal alignment. No significant focal bony abnormality or fracture is seen. There is a mild congenital spinal canal stenosis. At the L2-L3 level there is a moderate broad-based disc bulge and moderate hypertrophic changes within the facet joints which causes moderate to severe spinal canal narrowing. There is mild to moderate bilateral neural foraminal narrowing. At the L3-L4 level there is a moderate broad-based disc bulge with a focal far left lateral disc protrusion. There are moderate to severe hypertrophic changes within the facet joints. There is moderate to severe spinal canal narrowing. There is mild neural frontal narrowing on the right side and moderate neural foraminal narrowing on the left side. At the L4-L5 level there is a mild broad-based disc bulge and moderate hypertrophic changes within the facet joints. There is mild spinal canal narrowing. Neural foramen appear patent on both sides. At the L5-S1 level the intervertebral disc appears to be within normal limits. There are moderate hypertrophic changes within the facet joints. No spinal canal or neural foraminal narrowing is seen. IMPRESSION: CONGENITAL SPINAL CANAL NARROWING WITH SUPERIMPOSED DEGENERATIVE DISC DISEASE AND FACET OSTEOARTHRITIS GIVING RISE TO MODERATE TO SEVERE SPINAL CANAL NARROWING AT THE L2-L3 AND L3-L4 LEVELS AND MILD SPINAL CANAL NARROWING AT THE L4-L5 LEVEL. THERE IS NEURAL FORAMINAL NARROWING AT MULTIPLE LEVELS DESCRIBED.
[2016-12-23 17:42] VITALS: BP 140/98
== END 2016-12-23 17:41 | disposition home or self-care (01) ==
LOC: ED 13:20
DX: M25.561 Pain in right knee (principal); R53.1 Weakness; R20.9 Unspecified disturbances of skin sensation; Z87.891 Personal history of nicotine dependence
CPT/HCPCS: 72148; 99282

== ENCOUNTER 2017-12-07 07:10 | Day surgery (SDC) | payer MEDICARE, BC ==
[~2017-12-07 07:10] MED LIST changes: +Buffered Lidocaine 0.9% SYRIN* 5 ML/SYR SYRINGE INTRADERM ONE; -Buffered Lidocaine 1% SYR 3ML* 3 ML/SYR SYRINGE INTRADERM ONE; -Dexamethasone IV* 4 MG/ML 1 ML (4 MG) IV SLOW PU ONE; -DiMENhydriNATE IV* 50 MG/ML VIAL IV PUSH PRN; -Esmolol* 10 MG/ML 10 ML (100 mg) ONE; -Famotidine IV* 10 MG/ML 2 ML (20 mg) IV ONE; -HYDROmorphone INJ* 1 MG/ML CARPUJECT SYRINGE ONE; -Midazolam* 1 MG/ML 2 ML VIAL (2 MG) ONE; -Morphine PF AMP (0.5MG/ML)* 5 MG/10 ML AMP ONE; -Ondansetron INJ* 2 MG/ML VIAL IV PRN; -PROCHLORPERAZINE INJ 5 MG/ML 2 ML VIAL IV PRN; -fentaNYL* 50 MCG/ML 2 ML VIAL (100 MCG VIAL) IV PRN; -fentaNYL* 50 MCG/ML 2 ML VIAL (100 MCG VIAL) ONE
[2017-12-07] MEDS ORDERED: Lidocaine 1% MPF wEPI 200,000* 30 ML SDV ONE (09:08)
[2017-12-07] MEDS ORDERED: BSS OPTH.SOL* BTL ONE (09:08)
[2017-12-07] MEDS ORDERED: Lidocain 1% EPI 1:100,000 * 30 ML MDV ONE (09:11)
[2017-12-07] MEDS ORDERED: Bacitracin OPHTH.OINT* 3.5 GM ONE (09:15)
[2017-12-07] MEDS ORDERED: Midazolam* 1 MG/ML 2 ML VIAL (2 MG) ONE ×2 (09:27→09:31)
[2017-12-07] MEDS ORDERED: fentaNYL* 50 MCG/ML 2 ML VIAL (100 MCG VIAL) ONE (09:27)
[2017-12-07 10:20] VITALS: BP 134/57
--- NOTE | 2017-12-07 17:44 | OP ---
DATE OF OPERATION: 12/07/17 - [facility] DATE OF : 46 SURGEON: Keven Prince MD ELASTIC ATTACHER OVERLOCK: None. ANESTHESIA: Local MAC. PRE-OP DIAGNOSIS: Basal cell carcinoma, right lower lid, temporally. POST-OP DIAGNOSIS: Basal cell carcinoma, right lower lid, temporally. OPERATIVE PROCEDURE: Wedge resection of basal cell carcinoma, right lower lid, with reconstruction of eyelid. COMPLICATIONS: None. BLOOD LOSS: Minimal. DESCRIPTION OF PROCEDURE: The patient was brought to the operating room and attention was directed to her right lower eyelid where a small nodular pearly lesion was noted at the margin at the extreme temporal aspect of the right lower eyelid. A marking pen was used to latrell proposed incision sites approximately 1.5 mm temporal and lateral to the lesion extending inferiorly approximately 2 mm. The latrell had the appearance of a baseball home plate. Approximately, 1 cc of 1% lidocaine with epinephrine was injected into the lateral aspect of the lower lid. Further injection occurred down to the periosteum and slightly temporal and inferior to the lower eyelid as well. A drop of tetracaine was also placed in the eye. At this time, the patient had received small amount of intravenous sedation. A Tan scissors was used to cut vertically alongside of the lesion along the previously made latrell. The incisions were connected inferiorly and the wedge of tissue with the lesion was removed. It was tagged nasally with 6-0 suture and sent to pathology lab. Of note, the lesion was particularly noted temporally so there was no relaxed lid tissue to stretch and close the wound from the temporal aspect. Pulling the nasal edge temporally, did allow closure with considerable stress. Thus, it was decided to form an inferior cantholysis and a small semicircular flap of upper cheek tissue to close the wound without tension. An inferior cantholysis was achieved with a tenotomy scissors and a scalpel was used to make an approximately 1.5 cm arc extending from the lateral canthal angle inferotemporally. The tissue was gently undermined. Hemostasis was achieved with cauterization. At this point, the wound could be closed without traction on the lid. A 6-0 silk suture was placed at the margin to carefully reapproximate the garcia line. A double- armed 5-0 Mersilene was placed at the area of the tarsal plate and attached to the periosteum of the lateral aspect of the orbit slightly superior. This maintained the lid against the eye at the proper height. 5-0 Vicryl suture was used to close the deeper tissues of both the wound where the lesion was removed and temporally at the rotation of flap. The skin was then closed with interrupted 6-0 gut sutures. At the end of the case, the eyelid appeared in excellent position without sag or rotation. The wound was without bleeding. Topical bacitracin ointment was placed and the patient was sent to recovery room in stable condition with postop instructions and followup appointment given. [id number]/[facility] #: [id number] ARIANE
== END 2017-12-07 10:40 | disposition home or self-care (01) ==
LOC: OREAST 07:10
PROVIDERS: ATTEND Ophthalmology
DX: D22.11 Melanocytic nevi of right eyelid, including canthus (principal); I10 Essential (primary) hypertension; E78.00 Pure hypercholesterolemia, unspecified; M06.9 Rheumatoid arthritis, unspecified; F41.8 Other specified anxiety disorders; Z87.891 Personal history of nicotine dependence; G47.33 Obstructive sleep apnea (adult) (pediatric)
CPT/HCPCS: 88305; A9270-GY; J2001; J2250; J3010

== ENCOUNTER 2018-02-08 05:53 | Inpatient (IN) | payer MEDICARE, BC ==
--- NOTE | 2018-01-28 22:58 | HP ---
AMENDED REPORT NOW INCLUDES COSIGNER DESIGNATION - ESIGNED BEFORE ADJUSTMENT HISTORY AND PHYSICAL: DATE OF ADMISSION/SURGERY: 02/08/18. DATE OF OFFICE VISIT: 01/28/18. SURGEON: Dori Pablo MD.* (DICTATED BY KENNETH ARCHULETA) PROCEDURE: Right total knee arthroplasty. CHIEF COMPLAINT: Right knee pain. HISTORY OF PRESENT ILLNESS: Ms. 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 She has failed conservative management and elected to proceed with a right total knee arthroplasty which is scheduled for 02/08/[address] Pablo. PAST MEDICAL HISTORY: 1. Hypertension. 2. High cholesterol. 3. Rheumatoid arthritis. 4. Breast cancer. 5. Anxiety and depression. 6. Sleep apnea. 7. History of femur fracture 8. Red's esophagus. PAST SURGICAL HISTORY: 1. Right total hip arthroplasty. 2. ORIF of a right periprosthetic femur fracture. 3. Right carpal tunnel release. 4. Lumpectomy. 5. Appendectomy. 6. Tonsillectomy. 7. Adenoidectomy. 8. Laminectomy. 9. Abdominal surgery. CURRENT MEDICATIONS: 1. Naltrexone 4.5 mg every day. 2. Gabapentin 300 mg every day. 3. Atenolol 25 mg daily. 4. Atorvastatin calcium 20 mg daily. 5. Sertraline 100 mg every day 6. Triamterene /hydrochlorothiazide 75/50 mg daily. 7. Melatonin q.h.s. as needed. 8. Multivitamin. 9. Co-Q 10. 10. Diltiazem 180 mg daily. 11. Famotidine 20 mg twice a day. ALLERGIES: To SULFA. FAMILY HISTORY: Family history of hypertension, coronary artery disease, COPD, Alzheimer's and rheumatoid arthritis. SOCIAL HISTORY: She is a 67-year-old female. She lives alone. She does not smoke, use drugs or alcohol. REVIEW OF SYSTEMS: A complete 14-point review of systems is reviewed with the patient and was negative for DVT, PE, hepatitis, HIV or anesthesia problems. PHYSICAL EXAMINATION GENERAL: She is well developed, well nourished in no acute distress. She is alert and oriented x3. Pleasant mood and appropriate affect. VITAL SIGNS: She stands 5 feet 7 inches tall, weighs 209 pounds, her blood pressure 119/62, and heart rate is 80. HEENT: Normocephalic and atraumatic. NECK: Supple. No palpable lymph nodes. PULMONARY: Lungs are clear to auscultation bilaterally. CARDIO: Regular rate and rhythm. Strong S1, S2. ABDOMEN: Soft, nontender, nondistended. MUSCULOSKELETAL: Right lower extremity skin is intact. There is no open wounds or abrasions. There is 15 degrees of valgus deformity corrected by 5 degrees, 10 to 120 degrees flexion. There is a moderate joint effusion, tenderness over the medial and lateral joint line. MCL laxity, but there is endpoint, 2+ dorsalis pedis pulses. She has mildly diminished sensation over the lateral right lower leg and dorsal foot. She has a 4/5 right ankle dorsiflexion strength. ASSESSMENT AND PLAN: Ms. Chester Flores is a 67-year-old female with severe endstage arthritis of her right knee with a valgus deformity. She elected to proceed with a right total knee arthroplasty which is scheduled for 02/08/[address] Pablo discussed the risks and benefits of surgery at today' s visit and all of her questions were answered. She will follow up with Dr. Pablo in 2 weeks after the surgery. KENNETH ARCHULETA [id number]/CPS #: [id number] MTDD
--- OUTSIDE RECORDS SUMMARY | 2018-02-08 05:58 | XMS REPORT ---
:1950 External Reference #:[id number] Author Organization [facility] Address [address] [address] Phone [phone] Care Team Providers Name Role Phone Ellie Carolina MD Primary Care Physician Unavailable Payers Type Date Identification Numbers Payment Provider Subscriber Medicare Primary Effective: Policy Number: Medicare So Briggs 2013 [id number] Mark PayID: [id number] [address] [place] [address] Medigap Part B Effective: 2001 Policy Number: BS Of [place] So Briggs [id number] Mark Expires: 2011 Group Number: [id number] [address] PayID: [id number] [place] [address] Medigap Part B Effective: 2014 Policy Number: Kayla Briggs [id number] Mark PayID: [id number] [address] [place] [address] Problems Date Description Provider Status Onset: 01/07/2015 Cervical spondylosis with Tariq Victoria M.D. Active myelopathy Onset: 08/30/2009 Obstructive sleep apnea syndrome Kaitlin Barrera DNP, RN, Active [employer] Onset: 07/10/2016 Localized, primary osteoarthritis Dori Pablo M.D. Active Onset: 09/18/2016 Dyspnea Ever Love M.D., Active BERTRAND CALDWELL Onset: 09/18/2016 Electrocardiogram abnormal Ever Love M.D., Active BERTRAND CALDWELL Onset: 12/04/2016 Arthroplasty of knee Dori Pablo M.D. Active Onset: 12/30/2016 Traumatic injury of common Marvel Resendiz M.D. Active peroneal nerve Onset: 12/30/2016 Degeneration of lumbar Marvel Resendiz M.D. Active intervertebral disc Onset: 01/18/2017 Motor neuropathy with multiple Marvel Resendiz M.D. Active conduction block Onset: 05/26/2017 Periprosthetic fracture of hip Dori Pablo M.D. Active Onset: 06/25/2017 Rheumatoid arthritis Dori Pablo M.D. Active Family History Date Family Member(s) Problem(s) Comments General Heart Disease General Bone spurs General Hypertension General Chronic Obstructive Pulmonary Disease (COPD) General Alzheimer's Disease Father Alzheimer's Disease Father Arthritis Mother Arthritis Mother due to CAD () Mother Coronary Artery Disease (CAD) Mother Chronic Obstructive Pulmonary Disease (COPD) Social History Type Date Description Comments Marital Status Lives With Alone Occupation Retired Occupation Teacher Cigarette Use Quit - Age 53 ETOH Use Denies alcohol use Recreational Drug Use Denies Drug Use Smoking Patient is a former smoker Daily Caffeine Consumes on average 4 cups of regular coffee per day Exercise Type/Frequency Does not exercise Allergies, Adverse Reactions, Alerts Date Description Reaction Status Severity Comments 04/05/2007 Sulfa active Topical Sulfa Only Medications Medication Date Status Form Strength Qnty SIG Indications Ordering Provider Night Brace 02/10/ Active 1units use at M21.371 Marvel Right Foot 2016 night for Martín drop foot M.DReddy Tiazac / Active Caps ER 180mg 90caps 1 po qd Akin EReddy 0000 24HR Latesha Shea Celebrex / Active Capsules 200mg 90caps 1 po qd (on Dori hold) Latesha Pablo Baby Aspirin / Active Chewtabs 81mg 1 by mouth Unknown 0000 every day- on hold Naltrexone HCL / Active Powder 90unit 4.5 mg José 0000 s compounded Sravanthi, in capsules M.D. by mouth every day Gabapentin / Active Capsules 300mg 1 by mouth Unknown 0000 qd Atenolol / Active Tablets 25mg 1 by mouth Unknown 0000 every day Atorvastatin / Active Tablets 10mg 1 by mouth Unknown Calcium 0000 every day Sertraline HCL / Active Tablets 100mg 1 by mouth Unknown 0000 every day Triamterene/Hy / Active Tablets 75-50mg 1 by mouth Unknown drochlorothiaz 0000 every day abdi Melatonin / Active Tablets 3mg 3-4 tabs by Unknown 0000 mouth every night at bedtime as directed Multivitamin / Active Tablets 50+ once a day Unknown Women 50+ 0000 Co Q10 / Active Capsules 100mg 1 by mouth Unknown 0000 every day Tizanidine HCL / Active Capsules 2mg 1 or 2 cap Unknown 0000 by mouth as needed at night for spasms Diltiazem CD / Active Caps ER 180mg 1 by mouth Unknown 0000 24HR every day Famotidine / Active Tablets 20mg 1 by mouth Unknown 0000 every day as needed for heartburn Tramadol HCL 11/18/ Hx Tablets 50mg 60tabs 1-2 tabs Dori 2016 - every 4-6 Samy, 12/04/ hours as M.D. 2017 needed for pain Ultram 10/23/ Hx Tablets 50mg 45tabs one tablet Dori 2016 - every 8 Samy, 12/03/ hours as M.D. 2017 needed for pain orally [place] 10/23/ Hx Tablets 5-325mg 60tabs one to two Dori 2016 - tabs by Samy, 12/03/ mouth every M.D. 2017 4-6 hours as needed pain Coumadin 10/14/ Hx Tablets 2mg 90tabs take 1-3 Dori 2016 - tabs by Samy, 12/03/ mouth at 5 M.D. 2017 at night as directed-jeff fernandez started yet on hold for surgery Percocet 10/14/ Hx Tablets 5-325mg 90tabs 1-2 by Dori 2017 - mouth every Samy, 10/23/ 4-6 hours M.D. 2017 as needed pain Colace 10/14/ Hx Capsules 100mg 90caps 1 tab by Dori 2017 - mouth 2-3 Samy, 12/03/ times a day M.D. 2017 as needed Systane 09/03/ Hx Solution 0.4-0.3% 30unit apply twice M05.79 José Preservative 2017 - s daily for Sravanthi, Free 09/09/ dry eyes M.D. 2017 Aspercreme 09/03/ Hx Cream 4% 6units apply twice M05.79 José W/Danis 2017 - daily to Sravanthi, 12/30/ the joints M.D. 2017 as needed for pain Diflucan 04/09/ Hx Tablets 200mg 1tabs i po x one Akin Diaz 2009 - dose Monse, M.D. 2014 Vitamin D 01/14/ Hx Capsules 1000Unit 90caps po qd Akin Diaz 2008 - Monse, M.D. 2016 Melatonin 01/14/ Hx Capsules 1mg qd Akin Diaz 2008 - Monse, M.D. 2017 Valerian Root 01/14/ Hx Capsules 500mg 1 po prn Akin Diaz 2008 - Monse, M.D. 2016 Doxycycline 06/21/ Hx Caps DR 100mg 2Caps 2 caps po x Akin Diaz Hyclate 2007 - Part 1 dose Monse, M.D. 2016 Lipitor 06/06/ Hx Tablets 20mg 90tabs One Tab PO Akin Diaz 2007 - QHS Monse, M.D. 2016 Flax Seed Oil 05/30/ Hx Capsules 1000mg 1 po qd Akin Diaz 2007 - Monse, M.D. 2014 Flazseed Oil 04/05/ Hx 1 Tab qd Akin Diaz Tab 2006 - Monse, M.D. 2007 Lipitor / Hx Tablets 10mg 90tabs 1 po qhs Akin Diaz - Monse, M.D. 2007 Zoloft / Hx Tablets 50mg 90tabs 1 Akin E. - Monse, M.D. 2016 Multi-Vitamin/ / Hx Tablets 1 PO qd Sherwood, Minerals - Charlie, 2016 B-Complex / Hx Tablets qd Presley 0000 - Charlie, 2006 Vitamin E / Hx Capsules 400Unit 1 PO qd Presley 0000 - Charlie, 2006 Vitamin C / Hx Tablets 500mg 1 PO qd Prseley 0000 - Charlie, 2006 HCTZ/Triamtere / Hx Tablets 50mg 90tabs 1 po qd Akin jimenez 0000 - Monse, M.DReddy 2016 Tenormin / Hx Tablets 50mg 90tabs 1 po qam Akin Diaz 0000 - Monse, M.DReddy 2016 Co Q 10 / Hx Capsules 200mg qd Presley 0000 - Charlie, 2016 Ibuprofen / Hx Tablets 200mg 2-3qd Or Akin Diaz 0000 - prn Monse, M.Jessie 2008 Echinecia / Hx prn Presley 0000 - Charlie, 2014 Ambien / Hx Tablets 5mg 30tabs 1 po tablet Akin Diaz 0000 - at bedtime Monse, leslie Charlton 2014 Methotrexate / Hx Tablets 2.5mg 4 tabs 1x Unknown 0000 - per week 2015 Folic Acid / Hx Capsules 5mg 1 by mouth Unknown 0000 - every day 2015 L-Theanine / Hx Capsules 100mg 2 daily Unknown 0000 - 2016 Glucosamine-MS / Hx Capsules 8305-5000 daily Unknown M 0000 - 2016 Medications Administered in Office Medication Date Status Form Strength Qnty SIG Indications Ordering Provider Celestone 3 mg Administered Injection Dori and 3mg Danisha Pablo M.D. Synvisdomingo Or Administered Injection Dori Synvisc-One Danisha Pablo M.D. Injection 1 MG Synvisc Or Administered Injection Dori Synvisc-One Danisha Pablo M.D. Injection 1 MG Synvisc Or Administered Injection Dori Synvisc-One Danisha Pablo M.D. Injection 1 MG Depomedrol Administered Injection Dori 40MG Karen Pablo M.D. Inj, Administered Injection Ever Misha Regadenoson, 017 Ivan, 0.1 MG Latesha, FACC, FASNC Technetium TC Administered Injection Everannetta Cabral 99M Shawnee Bloom M.D., [facility], Per Unit Dose FASNC Up To 40 Millicuries Vital Signs Date Vital Result Comment 01/28/2018 Height 67 inches 5'7" Weight 209.00 lb BP Systolic 119 mmHg BP Diastolic 62 mmHg Respiratory Rate 16 /min Pain Level 1 BMI (Body Mass Index) 32.7 kg/m2 01/21/2018 Height 67 inches 5'7" Weight 212.00 lb Heart Rate 67 /min BP Systolic 120 mmHg BP Diastolic 80 mmHg O2 % BldC Oximetry 97 % BMI (Body Mass Index) 33.2 kg/m2 11/10/2017 Height 67 inches 5'7" Weight 205.00 lb Heart Rate 62 /min BP Systolic Sitting 122 mmHg BP Diastolic Sitting 81 mmHg Respiratory Rate 14 /min Pain Level 1 BMI (Body Mass Index) 32.1 kg/m2 10/25/2017 Height 67 inches 5'7" Weight 197.00 lb Heart Rate 66 /min Respiratory Rate 14 /min Body Temperature 97.2 F Pain Level 0 BMI (Body Mass Index) 30.9 kg/m2 09/15/2017 Height 67 inches 5'7" Weight 197.00 lb per pt Heart Rate 64 /min reg BP Systolic Sitting 124 mmHg Lue BP Diastolic Sitting 84 mmHg Lue Respiratory Rate 16 /min Pain Level 1 right knee BMI (Body Mass Index) 30.9 kg/m2 09/08/2017 Height 67 inches 5'7" Weight 197.00 lb per pt Heart Rate 66 /min reg BP Systolic Sitting 130 mmHg Lue, reg cuff BP Diastolic Sitting 70 mmHg Lue, reg cuff Respiratory Rate 16 /min Pain Level 2 right knee BMI (Body Mass Index) 30.9 kg/m2 09/01/2017 Height 67 inches 5'7" Weight 197.00 lb per pt Heart Rate 68 /min BP Systolic Sitting 130 mmHg Lue, lg cuff BP Diastolic Sitting 80 mmHg Lue, lg cuff Respiratory Rate 16 /min Pain Level 5 right knee BMI (Body Mass Index) 30.9 kg/m2 07/26/2017 Height 67 inches 5'7" Weight 200.00 lb Heart Rate 78 /min Respiratory Rate 16 /min Body Temperature 97.7 F Pain Level 0 BMI (Body Mass Index) 31.3 kg/m2 06/25/2017 Height 67 inches 5'7" Weight 200.00 lb Heart Rate 68 /min Respiratory Rate 14 /min Body Temperature 98.3 F Pain Level 3 BMI (Body Mass Index) 31.3 kg/m2 05/26/2017 Height 67 inches 5'7" Weight 200.00 lb Heart Rate 70 /min BP Systolic 122 mmHg BP Diastolic 77 mmHg Body Temperature 97.8 F BMI (Body Mass Index) 31.3 kg/m2 03/04/2017 Height 66.5 inches 5'6.50" Weight 210.00 lb Heart Rate 68 /min BP Systolic Sitting 142 mmHg BP Diastolic Sitting 80 mmHg Respiratory Rate 14 /min Pain Level 2 BMI (Body Mass Index) 33.4 kg/m2 02/05/2017 Height 66.5 inches 5'6.50" Weight 200.00 lb Heart Rate 68 /min BP Systolic 147 mmHg BP Diastolic 82 mmHg BMI (Body Mass Index) 31.8 kg/m2 01/18/2017 Height 66.5 inches 5'6.50" Weight 200.00 lb Heart Rate 84 /min BP Systolic 138 mmHg BP Diastolic 90 mmHg Pain Level 82 BMI (Body Mass Index) 31.8 kg/m2 01/01/2017 Height 66.5 inches 5'6.50" Weight 200.00 lb Heart Rate 84 /min BP Systolic 145 mmHg BP Diastolic 110 mmHg Respiratory Rate 18 /min Body Temperature 98.8 F Pain Level 6 BMI (Body Mass Index) 31.8 kg/m2 12/30/2016 Height 66.5 inches 5'6.50" Weight 200.00 lb Heart Rate 78 /min BP Systolic Sitting 134 mmHg BP Diastolic Sitting 80 mmHg Pain Level 7 BMI (Body Mass Index) 31.8 kg/m2 12/04/2016 Height 66.5 inches 5'6.50" Weight 200.00 lb Heart Rate 80 /min BP Systolic 134 mmHg BP Diastolic 85 mmHg Body Temperature 98.1 F Pain Level 0 BMI (Body Mass Index) 31.8 kg/m2 12/02/2016 Height 67 inches 5'7" Weight 200.12 lb Heart Rate 71 /min BP Systolic Sitting 138 mmHg BP Diastolic Sitting 75 mmHg Respiratory Rate 14 /min Body Temperature 98.4 F Pain Level 1 BMI (Body Mass Index) 31.3 kg/m2 11/04/2016 Height 67 inches 5'7" Weight 202.00 lb Heart Rate 84 /min BP Systolic 119 mmHg BP Diastolic 63 mmHg Body Temperature 98.8 F Pain Level 2 BMI (Body Mass Index) 31.6 kg/m2 10/16/2016 Height 67 inches 5'7" Weight 201.12 lb Heart Rate 64 /min BP Systolic Sitting 128 mmHg Right, Regular BP Diastolic Sitting 72 mmHg Right, Regular BP Systolic Standing 124 mmHg Right, Regular BP Diastolic Standing 72 mmHg Right, Regular Respiratory Rate 16 /min O2 % BldC Oximetry 96 % BMI (Body Mass Index) 31.5 kg/m2 10/14/2016 Height 67 inches 5'7" Weight 205.00 lb Heart Rate 58 /min BP Systolic 126 mmHg BP Diastolic 74 mmHg Pain Level 2 BMI (Body Mass Index) 32.1 kg/m2 09/23/2016 Height 66 inches 5'6" Weight 204.00 lb Heart Rate 57 /min BP Systolic Sitting 130 mmHg BP Diastolic Sitting 70 mmHg Respiratory Rate 14 /min O2 % BldC Oximetry 97 % BMI (Body Mass Index) 32.9 kg/m2 09/18/2016 Height 66 inches 5'6" Weight 206.50 lb Heart Rate 64 /min BP Systolic 128 mmHg right arm regular cuff BP Diastolic 82 mmHg right arm regular cuff BP Systolic Sitting 124 mmHg left arm, regular cuff BP Diastolic Sitting 78 mmHg left arm, regular cuff BP Systolic Standing 120 mmHg left arm regular cuff BP Diastolic Standing 76 mmHg left arm regular cuff Respiratory Rate 18 /min O2 % BldC Oximetry 96 % BMI (Body Mass Index) 33.3 kg/m2 09/03/2016 Height 66 inches 5'6" Weight 207.00 lb Heart Rate 80 /min BP Systolic Sitting 130 mmHg BP Diastolic Sitting 84 mmHg Respiratory Rate 14 /min Body Temperature 96.9 F Pain Level 2 BMI (Body Mass Index) 33.4 kg/m2 08/05/2016 Height 66 inches 5'6" Weight 220.00 lb Respiratory Rate 16 /min Pain Level 2 BMI (Body Mass Index) 35.5 kg/m2 07/10/2016 Height 66 inches 5'6" Weight 220.00 lb Heart Rate 66 /min BP Systolic 120 mmHg BP Diastolic 62 mmHg Pain Level 2 BMI (Body Mass Index) 35.5 kg/m2 06/04/2016 Height 66.5 inches 5'6.50" Heart Rate 62 /min BP Systolic Sitting 120 mmHg BP Diastolic Sitting 70 mmHg Body Temperature 97.6 F O2 % BldC Oximetry 98 % 03/04/2016 Height 66.5 inches 5'6.50" Heart Rate 64 /min BP Systolic Sitting 124 mmHg BP Diastolic Sitting 70 mmHg Respiratory Rate 14 /min Body Temperature 96.9 F Pain Level 0 12/04/2015 Height 66.5 inches 5'6.50" Weight 207.00 lb Heart Rate 64 /min BP Systolic Sitting 132 mmHg BP Diastolic Sitting 80 mmHg Pain Level 1 BMI (Body Mass Index) 32.9 kg/m2 10/04/2015 Height 66.5 inches 5'6.50" Weight 208.38 lb Heart Rate 60 /min BP Systolic 128 mmHg BP Diastolic 86 mmHg Respiratory Rate 14 /min O2 % BldC Oximetry 98 % BMI (Body Mass Index) 33.1 kg/m2 10/02/2015 Height 66.5 inches 5'6.50" Weight 208.00 lb Heart Rate 70 /min BP Systolic Sitting 140 mmHg BP Diastolic Sitting 80 mmHg Body Temperature 98.1 F Pain Level 0 BMI (Body Mass Index) 33.1 kg/m2 01/07/2015 Height 67 inches 5'7" Weight 198.00 lb Heart Rate 76 /min BP Systolic Sitting 130 mmHg BP Diastolic Sitting 88 mmHg Pain Level 0 BMI (Body Mass Index) 31.0 kg/m2 10/09/2014 Height 67 inches 5'7" Weight 204.00 lb Heart Rate 78 /min BP Systolic Sitting 140 mmHg BP Diastolic Sitting 90 mmHg Pain Level 0 BMI (Body Mass Index) 31.9 kg/m2 05/09/2009 Weight 216.00 lb Heart Rate 72 /min BP Systolic Sitting 146 mmHg BP Diastolic Sitting 74 mmHg 01/14/2009 Height 66.5 inches 5'6.50" Weight 217.00 lb Heart Rate 72 /min BP Systolic Sitting 138 mmHg BP Diastolic Sitting 80 mmHg BMI (Body Mass Index) 34.5 kg/m2 06/21/2008 Height 66.5 inches 5'6.50" BP Systolic Sitting 142 mmHg BP Diastolic Sitting 80 mmHg 05/30/2008 Height 66.5 inches 5'6.50" Weight 215.00 lb Heart Rate 72 /min BP Systolic Sitting 118 mmHg BP Diastolic Sitting 86 mmHg Body Temperature 98.8 F BMI (Body Mass Index) 34.2 kg/m2 04/05/2007 Height 66.5 inches 5'6.50" Weight 209.00 lb Heart Rate 72 /min BP Systolic Sitting 132 mmHg BP Diastolic Sitting 82 mmHg BMI (Body Mass Index) 33.2 kg/m2 Results Test Date Test Result H/L Range Note Laboratory test finding 11/12/2017 C Reactive Protein 1.26 mg/L < 5.00 1, 2 Erythrocyte Sed Rate 34 mm/Hr 0-40 1, 3 CBC Auto Diff 11/12/2017 White Blood Count 6.2 10^3/uL 3.5-10.8 1 Red Blood Count 4.61 10^6/uL 4.0-5.4 1 Hemoglobin 14.2 g/dL 12.0-16.0 1 Hematocrit 41 % 35-47 1 Mean Corpuscular Volume 89 fL 80-97 1 Mean Corpuscular Hemoglobin 31 pg 27-31 1 Mean Corpuscular HGB Conc 35 g/dL 31-36 1 Red Cell Distribution Width 16 % High 10.5-15 1 Platelet Count 254 10^3/uL 150-450 1 Mean Platelet Volume 10 um3 7.4-10.4 1 Abs Neutrophils 3.8 10^3/uL 1.5-7.7 1 Abs Lymphocytes 1.6 10^3/uL 1.0-4.8 1 Abs Monocytes 0.5 10^3/uL 0-0.8 1 Abs Eosinophils 0.2 10^3/uL 0-0.6 1 Abs Basophils 0.1 10^3/uL 0-0.2 1 Abs Nucleated RBC 0 10^3/uL 1 Granulocyte % 61.9 % 38-83 1 Lymphocyte % 26.3 % 25-47 1 Monocyte % 7.7 % High 0-7 1 Eosinophil % 3.1 % 0-6 1 Basophil % 1.0 % 0-2 1 Nucleated Red Blood Cells % 0.1 1 Comp Metabolic Panel 11/12/2017 Sodium 140 mmol/L 133-145 1 Potassium 4.4 mmol/L 3.5-5.0 1 Chloride 104 mmol/L 101-111 1 Co2 Carbon Dioxide 26 mmol/L 22-32 1 Anion Gap 10 mmol/L 2-11 1 Glucose 100 mg/dL 70-100 1 Blood Urea Nitrogen 23 mg/dL 6-24 1 Creatinine 0.73 mg/dL 0.51-0.95 1 BUN/Creatinine Ratio 31.5 High 8-20 1 Calcium 9.4 mg/dL 8.6-10.3 1 Total Protein 6.8 g/dL 6.4-8.9 1 Albumin 4.2 g/dL 3.2-5.2 1 Globulin 2.6 g/dL 2-4 1 Albumin/Globulin Ratio 1.6 1-3 1 Total Bilirubin 0.40 mg/dL 0.2-1.0 1 Alkaline Phosphatase 95 U/L 34-104 1 Alt 59 U/L High 7-52 1 Ast 35 U/L 13-39 1 Egfr Non- 79.3 >60 1 Egfr 102.0 >60 1, 4 Laboratory test finding 11/12/2017 Magnesium 2.1 mg/dL 1.9-2.7 1, 5 Creatine Kinase(CK) 50 U/L 10-223 1, 6 Hepatitis Acute Panel 11/12/2017 Hepatitis B Surface Nonreactive Nonreactive 1 Antigen Hepatitis B Core IgM Nonreactive Nonreactive 1 Hepatitis A AB IgM Nonreactive Nonreactive 1 Hepatitis C Antibody Nonreactive Nonreactive 1 Laboratory test finding 11/12/2017 Rheumatoid Factor 35 IU/mL 0-14 1, 7 Vitamin D, 1,25 Dihydroxy 47 pg/mL 18-78 1, 8 Laboratory test finding 02/24/2017 C Reactive Protein 3.44 mg/L < 5.00 9, 10 Erythrocyte Sed Rate 38 mm/Hr 0-40 9, 11 CBC Auto Diff 02/24/2017 White Blood Count 6.2 10^3/uL 3.5-10.8 9 Red Blood Count 4.51 10^6/uL 4.0-5.4 9 Hemoglobin 13.4 g/dL 12.0-16.0 9 Hematocrit 40 % 35-47 9 Mean Corpuscular Volume 90 fL 80-97 9 Mean Corpuscular Hemoglobin 30 pg 27-31 9 Mean Corpuscular HGB Conc 33 g/dL 31-36 9 Red Cell Distribution Width 17 % High 10.5-15 9 Platelet Count 241 10^3/uL 150-450 9 Mean Platelet Volume 9 um3 7.4-10.4 9 Abs Neutrophils 3.9 10^3/uL 1.5-7.7 9 Abs Lymphocytes 1.6 10^3/uL 1.0-4.8 9 Abs Monocytes 0.4 10^3/uL 0-0.8 9 Abs Eosinophils 0.3 10^3/uL 0-0.6 9 Abs Basophils 0 10^3/uL 0-0.2 9 Abs Nucleated RBC 0 10^3/uL 9 Granulocyte % 63.2 % 38-83 9 Lymphocyte % 25.5 % 25-47 9 Monocyte % 6.2 % 1-9 9 Eosinophil % 4.3 % 0-6 9 Basophil % 0.8 % 0-2 9 Nucleated Red Blood Cells % 0 9 Comp Metabolic Panel 02/24/2017 Sodium 139 mmol/L 133-145 9 Potassium 4.6 mmol/L 3.5-5.0 9 Chloride 104 mmol/L 101-111 9 Co2 Carbon Dioxide 28 mmol/L 22-32 9 Anion Gap 7 mmol/L 2-11 9 Glucose 89 mg/dL 70-100 9 Blood Urea Nitrogen 23 mg/dL 6-24 9 Creatinine 0.80 mg/dL 0.51-0.95 9 BUN/Creatinine Ratio 28.8 High 8-20 9 Calcium 9.2 mg/dL 8.6-10.3 9 Total Protein 6.2 g/dL Low 6.4-8.9 9 Albumin 3.8 g/dL 3.2-5.2 9 Globulin 2.4 g/dL 2-4 9 Albumin/Globulin Ratio 1.6 1-3 9 Total Bilirubin 0.40 mg/dL 0.2-1.0 9 Alkaline Phosphatase 62 U/L 34-104 9 Alt 15 U/L 7-52 9 Ast 20 U/L 13-39 9 Egfr Non- 71.3 >60 9 Egfr 91.7 >60 9, 12 Inr/Protime 11/26/2016 Inr 0.90 0.89-1.11 13 Inr/Protime 11/12/2016 Inr 1.43 High 0.89-1.11 13 Inr/Protime 11/09/2016 Inr 1.33 High 0.89-1.11 CBC No Diff 10/14/2016 White Blood Count 7.5 10^3/uL 3.5-10.8 Red Blood Count 4.79 10^6/uL 4.0-5.4 Hemoglobin 14.9 g/dL 12.0-16.0 Hematocrit 44 % 35-47 Mean Corpuscular Volume 92 fL 80-97 Mean Corpuscular Hemoglobin 31 pg 27-31 Mean Corpuscular HGB Conc 34 g/dL 31-36 Red Cell Distribution Width 14 % 10.5-15 Platelet Count 265 10^3/uL 150-450 Mean Platelet Volume 9 um3 7.4-10.4 Urinalysis Profile 10/14/2016 Urine Color Yellow Urine Appearance Cloudy Urine Specific [place] 1.018 1.010-1.030 Urine pH 7.0 5-9 Urine Urobilinogen Negative Negative Urine Ketones Trace Negative Urine Protein Negative Negative Urine Leukocytes Negative Negative Urine Blood Negative Negative * * Negative 14 Urine Nitrite Negative Negative Urine Bilirubin Negative Negative Urine Glucose Negative Negative Inr/Protime 10/14/2016 Inr 0.86 Low 0.89-1.11 Laboratory test finding 10/14/2016 Partial Thrombo Time 29.0 seconds 26.0 -36.3 PTT Comp Metabolic Panel 10/14/2016 Sodium 139 mmol/L 133-145 Potassium 4.2 mmol/L 3.5-5.0 Chloride 100 mmol/L Low 101-111 Co2 Carbon Dioxide 31 mmol/L 22-32 Anion Gap 8 mmol/L 2-11 Glucose 81 mg/dL 70-100 Blood Urea Nitrogen 17 mg/dL 6-24 Creatinine 0.82 mg/dL 0.51-0.95 BUN/Creatinine Ratio 20.7 High 8-20 Calcium 10.1 mg/dL 8.6-10.3 Total Protein 7.0 g/dL 6.4-8.9 Albumin 4.5 g/dL 3.2-5.2 Globulin 2.5 g/dL 2-4 Albumin/Globulin Ratio 1.8 1-3 Total Bilirubin 0.50 mg/dL 0.2-1.0 Alkaline Phosphatase 74 U/L 34-104 Alt 42 U/L 7-52 Ast 33 U/L 13-39 Egfr Non- 69.5 >60 Egfr 89.4 >60 15 Type & Screen 10/14/2016 Patient Blood Type A Positive Antibody Screen NEGATIVE Urine Culture And 10/14/2016 Urine Culture SEE RESULT BELOW 16 Sensitivities Laboratory test finding 08/26/2016 C Reactive Protein 1.37 mg/L < 5.00 17 Erythrocyte Sed Rate 33 mm/Hr 0-40 18 Rheumatoid Factor 51 IU/mL <15 19 CBC Auto Diff 08/26/2016 White Blood Count 6.1 10^3/uL 3.5-10.8 Red Blood Count 4.76 10^6/uL 4.0-5.4 Hemoglobin 15.0 g/dL 12.0-16.0 Hematocrit 44 % 35-47 Mean Corpuscular Volume 92 fL 80-97 Mean Corpuscular Hemoglobin 32 pg High 27-31 Mean Corpuscular HGB Conc 34 g/dL 31-36 Red Cell Distribution Width 14 % 10.5-15 Platelet Count 218 10^3/uL 150-450 Mean Platelet Volume 10 um3 7.4-10.4 Abs Neutrophils 3.7 10^3/uL 1.5-7.7 Abs Lymphocytes 1.7 10^3/uL 1.0-4.8 Abs Monocytes 0.4 10^3/uL 0-0.8 Abs Eosinophils 0.2 10^3/uL 0-0.6 Abs Basophils 0.1 10^3/uL 0-0.2 Abs Nucleated RBC 0.01 10^3/uL Granulocyte % 61.1 % 38-83 Lymphocyte % 27.8 % 25-47 Monocyte % 6.3 % 1-9 Eosinophil % 3.8 % 0-6 Basophil % 1.0 % 0-2 Nucleated Red Blood Cells % 0.1 Comp Metabolic Panel 08/26/2016 Sodium 137 mmol/L 133-145 Potassium 4.2 mmol/L 3.5-5.0 Chloride 102 mmol/L 101-111 Co2 Carbon Dioxide 27 mmol/L 22-32 Anion Gap 8 mmol/L 2-11 Glucose 101 mg/dL High 70-100 Blood Urea Nitrogen 19 mg/dL 6-24 Creatinine 0.73 mg/dL 0.51-0.95 BUN/Creatinine Ratio 26.0 High 8-20 Calcium 9.6 mg/dL 8.6-10.3 Total Protein 7.0 g/dL 6.4-8.9 Albumin 4.5 g/dL 3.2-5.2 Globulin 2.5 g/dL 2-4 Albumin/Globulin Ratio 1.8 1-3 Total Bilirubin 0.60 mg/dL 0.2-1.0 Alkaline Phosphatase 62 U/L 34-104 Alt 21 U/L 7-52 Ast 22 U/L 13-39 Egfr Non- 79.5 >60 Egfr 102.3 >60 20 Laboratory test finding 06/01/2016 C Reactive Protein 1.34 mg/L < 5.00 21 Erythrocyte Sed Rate 23 mm/Hr 0-40 22 CBC Auto Diff 06/01/2016 White Blood Count 5.9 10^3/uL 3.5-10.8 Red Blood Count 4.47 10^6/uL 4.0-5.4 Hemoglobin 14.1 g/dL 12.0-16.0 Hematocrit 41 % 35-47 Mean Corpuscular Volume 92 fL 80-97 Mean Corpuscular Hemoglobin 32 pg High 27-31 Mean Corpuscular HGB Conc 34 g/dL 31-36 Red Cell Distribution Width 14 % 10.5-15 Platelet Count 245 10^3/uL 150-450 Mean Platelet Volume 10 um3 7.4-10.4 Abs Neutrophils 3.5 10^3/uL 1.5-7.7 Abs Lymphocytes 1.8 10^3/uL 1.0-4.8 Abs Monocytes 0.4 10^3/uL 0-0.8 Abs Eosinophils 0.2 10^3/uL 0-0.6 Abs Basophils 0.1 10^3/uL 0-0.2 Abs Nucleated RBC 0 10^3/uL Granulocyte % 58.6 % 38-83 Lymphocyte % 29.9 % 25-47 Monocyte % 6.0 % 1-9 Eosinophil % 4.2 % 0-6 Basophil % 1.3 % 0-2 Nucleated Red Blood Cells % 0 Comp Metabolic Panel 06/01/2016 Sodium 139 mmol/L 133-145 Potassium 4.1 mmol/L 3.5-5.0 Chloride 105 mmol/L 101-111 Co2 Carbon Dioxide 27 mmol/L 22-32 Anion Gap 7 mmol/L 2-11 Glucose 127 mg/dL High 70-100 Blood Urea Nitrogen 17 mg/dL 6-24 Creatinine 0.75 mg/dL 0.51-0.95 BUN/Creatinine Ratio 22.7 High 8-20 Calcium 9.4 mg/dL 8.6-10.3 Total Protein 6.6 g/dL 6.4-8.9 Albumin 4.2 g/dL 3.2-5.2 Globulin 2.4 g/dL 2-4 Albumin/Globulin Ratio 1.8 1-3 Total Bilirubin 0.60 mg/dL 0.2-1.0 Alkaline Phosphatase 63 U/L 34-104 Alt 27 U/L 7-52 Ast 25 U/L 13-39 Egfr Non- 77.1 >60 Egfr 99.1 >60 23 Laboratory test finding 02/28/2016 C Reactive Protein 2.74 mg/L < 5.00 24 Erythrocyte Sed Rate 38 mm/Hr 0-40 25 CBC Auto Diff 02/28/2016 White Blood Count 6.6 10^3/uL 3.5-10.8 Red Blood Count 4.54 10^6/uL 4.0-5.4 Hemoglobin 13.9 g/dL 12.0-16.0 Hematocrit 41 % 35-47 Mean Corpuscular Volume 90 fL 80-97 Mean Corpuscular Hemoglobin 31 pg 27-31 Mean Corpuscular HGB Conc 34 g/dL 31-36 Red Cell Distribution Width 14 % 10.5-15 Platelet Count 247 10^3/uL 150-450 Mean Platelet Volume 9 um3 7.4-10.4 Abs Neutrophils 4.1 10^3/uL 1.5-7.7 Abs Lymphocytes 1.7 10^3/uL 1.0-4.8 Abs Monocytes 0.5 10^3/uL 0-0.8 Abs Eosinophils 0.2 10^3/uL 0-0.6 Abs Basophils 0.1 10^3/uL 0-0.2 Abs Nucleated RBC 0 10^3/uL Granulocyte % 62.2 % 38-83 Lymphocyte % 25.4 % 25-47 Monocyte % 7.6 % 1-9 Eosinophil % 3.4 % 0-6 Basophil % 1.4 % 0-2 Nucleated Red Blood Cells % 0 Comp Metabolic Panel 02/28/2016 Sodium 140 mmol/L 133-145 Potassium 3.5 mmol/L 3.5-5.0 Chloride 104 mmol/L 101-111 Co2 Carbon Dioxide 27 mmol/L 22-32 Anion Gap 9 mmol/L 2-11 Glucose 101 mg/dL High 70-100 Blood Urea Nitrogen 16 mg/dL 6-24 Creatinine 1.00 mg/dL High 0.51-0.95 BUN/Creatinine Ratio 16.0 8-20 Calcium 9.5 mg/dL 8.6-10.3 Total Protein 6.6 g/dL 6.4-8.9 Albumin 4.1 g/dL 3.2-5.2 Globulin 2.5 g/dL 2-4 Albumin/Globulin Ratio 1.6 1-3 Total Bilirubin 0.80 mg/dL 0.2-1.0 Alkaline Phosphatase 74 U/L 34-104 Alt 28 U/L 7-52 Ast 26 U/L 13-39 Egfr Non- 55.3 >60 Egfr 71.1 >60 26 CBC Auto Diff 12/03/2015 White Blood Count 6.8 10^3/uL 3.5-10.8 Red Blood Count 4.41 10^6/uL 4.0-5.4 Hemoglobin 13.8 g/dL 12.0-16.0 Hematocrit 40 % 35-47 Mean Corpuscular Volume 92 fL 80-97 Mean Corpuscular Hemoglobin 31 pg 27-31 Mean Corpuscular HGB Conc 34 g/dL 31-36 Red Cell Distribution Width 14 % 10.5-15 Platelet Count 254 10^3/uL 150-450 Mean Platelet Volume 9 um3 7.4-10.4 Abs Neutrophils 4.5 10^3/uL 1.5-7.7 Abs Lymphocytes 1.5 10^3/uL 1.0-4.8 Abs Monocytes 0.5 10^3/uL 0-0.8 Abs Eosinophils 0.2 10^3/uL 0-0.6 Abs Basophils 0.1 10^3/uL 0-0.2 Abs Nucleated RBC 0 10^3/uL Granulocyte % 66.9 % 38-83 Lymphocyte % 21.7 % Low 25-47 Monocyte % 7.4 % 1-9 Eosinophil % 3.2 % 0-6 Basophil % 0.8 % 0-2 Nucleated Red Blood Cells % 0 Comp Metabolic Panel 12/03/2015 Sodium 140 mmol/L 133-145 Potassium 4.3 mmol/L 3.5-5.0 Chloride 102 mmol/L 101-111 Co2 Carbon Dioxide 32 mmol/L 22-32 Anion Gap 6 mmol/L 2-11 Glucose 97 mg/dL 70-100 Blood Urea Nitrogen 27 mg/dL High 6-24 Creatinine 0.93 mg/dL 0.51-0.95 BUN/Creatinine Ratio 29.0 High 8-20 Calcium 9.7 mg/dL 8.6-10.3 Total Protein 6.4 g/dL 6.4-8.9 Albumin 4.1 g/dL 3.2-5.2 Globulin 2.3 g/dL 2-4 Albumin/Globulin Ratio 1.8 1-3 Total Bilirubin 0.40 mg/dL 0.2-1.0 Alkaline Phosphatase 65 U/L 34-104 Alt 24 U/L 7-52 Ast 21 U/L 13-39 Egfr Non- 60.1 >60 Egfr 77.3 >60 27 Laboratory test finding 12/03/2015 Erythrocyte Sed Rate 35 mm/Hr 0-40 C Reactive Protein 1.43 mg/L < 5.00 28 Laboratory test finding 10/08/2015 CRP High Sensitivity 1.14 mg/L 29 Erythrocyte Sed Rate 33 mm/Hr 0-40 30 Rheumatoid Factor 58 IU/mL <15 31 Cyclic Citrullinated Pep Igg <15.6 U 32 MRSA/Vre Screen 01/30/2009 MRSA/Vre Culture [facility]ICU 33 Comp Metabolic Panel 01/17/2009 Sodium 140 mmol/L 135-145 34 Potassium 4.2 mmol/L 3.5-5.0 34 Chloride 103 mmol/L 101-111 34 Co2 (Carbon Dioxide) 28.0 mmol/L 22-32 34 Anion Gap 9.0 mmol/L 2-11 34, 35 Glucose 105 mg/dL High 70-100 34, 36 BUN 12 mg/dL 6-24 34 Creatinine 0.80 mg/dL 0.50-1.40 34 One Over Creatinine 1.20 34 BUN/Creatinine Ratio 15.0 8-20 34 Calcium 9.5 mg/dL 8.1-9.9 34, 37 Total Protein 6.8 GM/DL 6.2-8.1 34 Albumin 4.2 GM/DL 3.2-5.2 34 Globulin 2.6 GM/DL 2-4 34 Albumin/Globulin Ratio 1.6 1-3 34 Bilirubin Total 0.8 mg/dL 0.4-1.5 34, 38 Alkaline Phosphatase 80 U/L 30-110 34 Alt (SGPT) 23 U/L 14-54 34 Ast (Sgot) 25 U/L 12-42 34 Protime 01/17/2009 Inr 0.97 34, 39 Protime 11.9 SEC 10.67-13.64 34, 40 Laboratory test finding 01/17/2009 PTT (Aptt) 22.9 20.1-28.2 34, 41 Type And Screen 01/17/2009 Patient Blood Type A POSITIVE Antibody Screen NEGATIVE Specimen Discard Date 01/31/09 42 Laboratory test finding 01/17/2009 Release Date 01/31/09 43 Urinalysis 01/17/2009 Ua Color YELLOW 34 Appearance-Urine CLOUDY 34 Specific [place]-Ur 1.013 1.010-1.030 34 Esterase-Urine NEGATIVE Negative 34 Nitrite NEGATIVE Negative 34 Xlskcflnqngq-Fy-HTV NEGATIVE Negative 34 Protein-Urine NEGATIVE Negative 34 PH-Urine 7.0 5-9 34 Blood-Urine NEGATIVE Negative 34 Ketones-Urine NEGATIVE Negative 34 Bilirubin-Ur NEGATIVE Negative 34 Glucose-Urine NEGATIVE Negative 34 CBC With Electronic Diff 01/17/2009 White Blood Count 8.3 CUMM 4.8-10.8 34 Red Cell Count 4.33 CUMM 4.2-5.4 34 Hemoglobin 13.6 g/dL 12.0-16.0 34 Hematocrit 39 % 35-47 34 Mean Corpuscular Volume 91 um3 79-97 34 Mean Corpuscular Hemoglob 32 pg High 27-31 34 Mean Corpuscular HGB Cone 35 g/dL 32-36 34 Redcell Distribution WDTH 14 % 10.5-15 34 Platelet Count 339 CUMM 150-450 34 Mean Platelet Volume 8.3 um3 7.4-10.4 34 Gran % 59.3 % 38-83 34 Lymph % 33.1 % 25-47 34 Mononuclear % 4.5 % 1-9 34 Eosinophil % 2.7 % 0-6 34 Basophil % 0.4 % 0-2 34 Abs Lymphs 2.8 1.0-4.8 34 Abs Mononuclear 0.4 0-0.8 34 Absolute Neutrophil Count 4.9 1.5-7.7 34 Abs Eosinophils 0.2 0-0.6 34 Abs Basophils 0 0-0.2 34 Laboratory test finding 05/30/2008 TSH 1.29 MIU/ML 0.34-5.60 44 Hemoglobin A1c 6.6 % High <6.0 44, 45 Lipid Profile (Trig/Chol/HDL) 05/30/2008 Triglyceride 195 mg/dL 40-200 44 Cholesterol 241 mg/dL High Less Than 200 44, 46 High Density Lipoprotein 53 mg/dL 40-60 44, 47 Cholesterol/HDL Ratio 4.55 AVERAGE High 1-4.44 44 Low Density Lipoprotein 149 mg/dL High Less Than 100 44, 48 Comp Metabolic Panel 05/30/2008 Sodium 142 mmol/L 135-145 44 Potassium 5.0 mmol/L 3.5-5.0 44 Chloride 105 mmol/L 101-111 44 Co2 (Carbon Dioxide) 30.0 mmol/L 22-32 44 Anion Gap 7.0 mmol/L 2-11 44, 49 Glucose 98 mg/dL 70-100 44, 50 BUN 18 mg/dL 6-24 44 Creatinine 1.0 mg/dL 0.5-1.4 44 One Over Creatinine 1.00 44 BUN/Creatinine Ratio 18.0 8-20 44 Calcium 9.8 mg/dL 8.1-9.9 44, 51 Total Protein 7.1 GM/DL 6.2-8.1 44 Albumin 4.0 GM/DL 3.6-5.4 44 Globulin 3.1 GM/DL 2-4 44 Albumin/Globulin Ratio 1.3 1-3 44 Bilirubin Total 0.9 mg/dL 0.4-1.5 44 Alkaline Phosphatase 71 U/L 30-110 44 Alt (SGPT) 23 U/L 14-54 44 Ast (Sgot) 24 U/L 12-42 44 CBC With Electronic Diff 05/30/2008 White Blood Count 6.2 CUMM 4.8-10.8 44 Red Cell Count 4.33 CUMM 4.2-5.4 44 Hemoglobin 13.7 g/dL 12.0-16.0 44 Hematocrit 39 % 35-47 44 Mean Corpuscular Volume 90 um3 79-97 44 Mean Corpuscular Hemoglob 32 pg High 27-31 44 Mean Corpuscular HGB Cone 35 g/dL 32-36 44 Redcell Distribution WDTH 14 % 10.5-15 44 Platelet Count 311 CUMM 150-450 44 Mean Platelet Volume 8.7 um3 7.4-10.4 44 Gran % 55.5 % 38-83 44 Lymph % 34.5 % 20-45 44 Mononuclear % 5.8 % 1-9 44 Eosinophil % 3.6 % 0-6 44 Basophil % 0.6 % 0-2 44 Abs Lymphs 2.1 1.0-4.8 44 Abs Mononuclear 0.4 0-0.8 44 Absolute Neutrophil Count 3.4 1.5-7.7 44 Abs Eosinophils 0.2 0-0.6 44 Abs Basophils 0 0-0.2 44 CBC W/ Electronic Diff 04/07/2007 White Blood Count 6.0 CUMM 4.8-10.8 44 Abs Basophils 0 0-0.2 44 Abs Eosinophils 0.2 0-0.6 44 Absolute Neutrophil Count 3.3 1.5-7.7 44 Abs Lymphs 2.0 1.0-4.8 44 Abs Mononuclear 0.4 0-0.8 44 Basophil % 0.6 % 0-2 44 Hematocrit 41 % 35-47 44 Hemoglobin 14.4 g/dL 12.0-16.0 44 Eosinophil % 3.7 % 0-6 44 Gran % 55.8 % 38-83 44 Lymph % 33.6 % 20-45 44 Mean Corpuscular HGB Cone 35 g/dL 32-36 44 Mean Corpuscular Hemoglob 32 pg High 27-31 44 Mean Corpuscular Volume 91 um3 79-97 44 Mean Platelet Volume 9.1 um3 7.4-10.4 44 Mononuclear % 6.3 % 1-9 44 Platelet Count 312 CUMM 150-450 44 Red Cell Count 4.53 CUMM 4.2-5.4 44 Redcell Distribution WDTH 13 % 10.5-15 44 Comp Metabolic Panel 04/07/2007 One Over Creatinine 1.11 44 Anion Gap 7.0 mmol/L 2-11 44, 52 Albumin/Globulin Ratio 1.5 1-3 44 Albumin 4.0 GM/DL 3.6-5.4 44 Alkaline Phosphatase 66 U/L 30-110 44 Alt (SGPT) 24 U/L 14-54 44 Ast (Sgot) 27 U/L 12-42 44 BUN 16 mg/dL 6-24 44 Calcium 9.1 mg/dL 8.7-10.2 44 Chloride 102 mmol/L 101-111 44 Co2 (Carbon Dioxide) 29.0 mmol/L 22-32 44 Globulin 2.7 GM/DL 2-4 44 Glucose 110 mg/dL High 70-105 44 Potassium 4.2 mmol/L 3.5-5.0 44 Sodium 138 mmol/L 135-145 44 Bilirubin Total 0.6 mg/dL 0.4-1.5 44 Total Protein 6.7 GM/DL 6.2-8.1 44 BUN/Creatinine Ratio 17.8 8-20 44 Creatinine 0.9 mg/dL 0.5-1.4 44 Lipid Profile 04/07/2007 Cholesterol/HDL Ratio 4.91 AVERAGE High 1-4.44 44 (Trig/Chol/HDL) Cholesterol 231 mg/dL High Less Than 200 44, 53 Triglyceride 166 mg/dL 40-200 44 High Density Lipoprotein 47 mg/dL 40-60 44 Low Density Lipoprotein 151 mg/dL High Less Than 100 44, 54 Laboratory test 04/07/2007 TSH 0.98 MIU/ML 0.34-5.60 44 finding Surgical Pathology 03/14/2007 Surgical Pathology 55 <SEE NOTE> 1 Please check labs this week 2 Acute inflammation: >10.00 3 Please check labs this week 4 Because ethnic data is not always readily available, this report includes an eGFR for both -Americans and non- Americans. The National Kidney Disease Education Program (NKDEP) does not endorse the use of the MDRD equation for patients that are not between the ages of 18 and 70, are , have extremes of body size, muscle mass, or nutritional status, or are non- or non-. According to the National Kidney Foundation, irrespective of diagnosis, the stage of the disease is based on the level of kidney function: Stage Description GFR(mL/min/1.73 m(2)) 1 Kidney damage with normal or decreased GFR 90 2 Kidney damage with mild decrease in GFR 60-89 3 Moderate decrease in GFR 30-59 4 Severe decrease in GFR 15-29 5 Kidney failure <15 (or dialysis) 5 Please check labs this week 6 Please check labs this week 7 Performed by [facility], [address] [place] [address] [email or web address], Case Vieira MD - Lab. Director Test Performed by: [facility] [address] [place] [address] 8 ADDITIONAL INFORMATION This test was developed and its performance characteristics determined by [facility] in a manner consistent with CLIA requirements. This test has not been cleared or approved by the U.S. Food and Drug Administration. Test Performed by: [facility] [address] [place] [address] 9 Please check 2 days before her next visit 10 Acute inflammation: >10.00 11 Please check 2 days before her next visit 12 Because ethnic data is not always readily available, this report includes an eGFR for both -Americans and non- Americans. The National Kidney Disease Education Program (NKDEP) does not endorse the use of the MDRD equation for patients that are not between the ages of 18 and 70, are , have extremes of body size, muscle mass, or nutritional status, or are non- or non-. According to the National Kidney Foundation, irrespective of diagnosis, the stage of the disease is based on the level of kidney function: Stage Description GFR(mL/min/1.73 m(2)) 1 Kidney damage with normal or decreased GFR 90 2 Kidney damage with mild decrease in GFR 60-89 3 Moderate decrease in GFR 30-59 4 Severe decrease in GFR 15-29 5 Kidney failure <15 (or dialysis) 13 STANDING ORDER ENTERED 11/12/16 EXPIRES 05/08/17 PLEASE CALL RESULTS TO: [phone] TO BE DRAWN ON 14 *Ascorbic acid is present which may interfere with detection of blood. 15 Because ethnic data is not always readily available, this report includes an eGFR for both -Americans and non- Americans. The National Kidney Disease Education Program (NKDEP) does not endorse the use of the MDRD equation for patients that are not between the ages of 18 and 70, are , have extremes of body size, muscle mass, or nutritional status, or are non- or non-. According to the National Kidney Foundation, irrespective of diagnosis, the stage of the disease is based on the level of kidney function: Stage Description GFR(mL/min/1.73 m(2)) 1 Kidney damage with normal or decreased GFR 90 2 Kidney damage with mild decrease in GFR 60-89 3 Moderate decrease in GFR 30-59 4 Severe decrease in GFR 15-29 5 Kidney failure <15 (or dialysis) 16 SEE RESULT BELOW Name: SO JACOB : [address]: Dori Pablo MD Acct: [id number] Unit: [id number] AGE: 65 Location: PAT Re10/14/16 SEX: F Status: REG REF SPEC: [id number] CHRISTIANO: 10/14/16-[address]: Dori Pablo MD REQ: [id number] RECD: 10/14/16 STATUS: COMP OTHR DR: Ellie Carolina MD _ SOURCE: URINE SPDESC: ORDERED: Urine Culture QUERIES: Urine Source: Random Procedure Result Reported Site Urine Culture Final 10/15/16- 1317 ML No growth of clinically significant organisms * ML - MAIN LAB (PSC1) . END OF REPORT * ML=Testing performed at Main Lab DEPARTMENT OF PATHOLOGY, [address] [place] [address] Michael Ruano M.D. Director [facility] # [id number] 17 Acute inflammation: >10.00 18 Please check 2 or 3 days prior to the next visit 19 Test Performed by: [address] [address] Survey Interviewer: Ruddy Gil II, M.D., Ph.D. 20 Because ethnic data is not always readily available, this report includes an eGFR for both -Americans and non- Americans. The National Kidney Disease Education Program (NKDEP) does not endorse the use of the MDRD equation for patients that are not between the ages of 18 and 70, are , have extremes of body size, muscle mass, or nutritional status, or are non- or non-. According to the National Kidney Foundation, irrespective of diagnosis, the stage of the disease is based on the level of kidney function: Stage Description GFR(mL/min/1.73 m(2)) 1 Kidney damage with normal or decreased GFR 90 2 Kidney damage with mild decrease in GFR 60-89 3 Moderate decrease in GFR 30-59 4 Severe decrease in GFR 15-29 5 Kidney failure <15 (or dialysis) 21 Acute inflammation: >10.00 22 Please check 2 days prior to next visit 23 Because ethnic data is not always readily available, this report includes an eGFR for both -Americans and non- Americans. The National Kidney Disease Education Program (NKDEP) does not endorse the use of the MDRD equation for patients that are not between the ages of 18 and 70, are , have extremes of body size, muscle mass, or nutritional status, or are non- or non-. According to the National Kidney Foundation, irrespective of diagnosis, the stage of the disease is based on the level of kidney function: Stage Description GFR(mL/min/1.73 m(2)) 1 Kidney damage with normal or decreased GFR 90 2 Kidney damage with mild decrease in GFR 60-89 3 Moderate decrease in GFR 30-59 4 Severe decrease in GFR 15-29 5 Kidney failure <15 (or dialysis) 24 Acute inflammation: >10.00 25 2 days prior to next visit 26 Because ethnic data is not always readily available, this report includes an eGFR for both -Americans and non- Americans. The National Kidney Disease Education Program (NKDEP) does not endorse the use of the MDRD equation for patients that are not between the ages of 18 and 70, are , have extremes of body size, muscle mass, or nutritional status, or are non- or non-. According to the National Kidney Foundation, irrespective of diagnosis, the stage of the disease is based on the level of kidney function: Stage Description GFR(mL/min/1.73 m(2)) 1 Kidney damage with normal or decreased GFR 90 2 Kidney damage with mild decrease in GFR 60-89 3 Moderate decrease in GFR 30-59 4 Severe decrease in GFR 15-29 5 Kidney failure <15 (or dialysis) 27 Because ethnic data is not always readily available, this report includes an eGFR for both -Americans and non- Americans. The National Kidney Disease Education Program (NKDEP) does not endorse the use of the MDRD equation for patients that are not between the ages of 18 and 70, are , have extremes of body size, muscle mass, or nutritional status, or are non- or non-. According to the National Kidney Foundation, irrespective of diagnosis, the stage of the disease is based on the level of kidney function: Stage Description GFR(mL/min/1.73 m(2)) 1 Kidney damage with normal or decreased GFR 90 2 Kidney damage with mild decrease in GFR 60-89 3 Moderate decrease in GFR 30-59 4 Severe decrease in GFR 15-29 5 Kidney failure <15 (or dialysis) 28 Acute inflammation: >10.00 29 Low risk: <1.00 Average risk: 1.00-3.00 High risk: >3.00 30 Please do this week 31 Test Performed by: [address] [address] Survey Interviewer: Ruddy Gil II, M.D., Ph.D. 32 REFERENCE VALUE <20.0 (Negative) Test Performed by: [facility] [address] [place] [address] Survey Interviewer: Ruddy Gil II, M.D., Ph.D. 33 NO MRSA ISOLATED 34 SURGERY DATE 01/29/09 35 Anion gap measurement may be of limited value in the presence of any alkalosis, especially in a combined acid base disorder. . 36 Note change in reference range as of 04/19/08. The change was based on recommendations from the [place] [employer]. 37 Please note change in reference range effective 08 . 38 A metabolite of Naproxen, O-desmethylnaproxen, has been shown to interfere with the [place] method for measuring total bilirubin. Samples from patients who have taken Naproxen have shown spurious elevation in total bilirubin levels. 39 Recommended INR for Patients on Oral Anticoagulants Prophylaxis 2.0 - 3.0 Treatment of thrombosis 2.0 - 3.0 Prevention of embolism 2.0 - 3.0 Prevention of embolism from prosthetic heart valves 2.5 - 3.5 40 ATTENTION EFFECTIVE 01/09/09, THE IMPLEMENTATION OF NEW COAGULATION ANLAYZERS HAS CAUSED A SIGNIFICANT DIFFERENCE FOR PROTIME RESULTS IN SECONDS. THEREFORE, DIAGNOSIS,TREATMENT,AND THERAPY MUST BE BASED ON THE INR VALUE ONLY. AFTER JANUARY 28, 2009, ONLY THE INR WILL BE REPORTED. 41 PLEASE NOTE NEW REFERENCE RANGE EFFECTIVE 08. 42 PREADMISSION TESTING SAMPLES FOR BLOOD BANK WILL BE HELD FOR 14 DAYS FROM THE DATE OF COLLECTION *IF* THE FOLLOWING CRITERIA ARE MET: 1) THE PATIENT HAS *NOT* BEEN IN THE LAST 3 MONTHS. 2) THE PATIENT HAS *NOT* BEEN TRANSFUSED IN THE LAST 3 MONTHS. PREADMISSION TESTING SAMPLES WILL *NOT* BE HELD FOR 14 DAYS FROM PATIENTS WHO IN THE LAST 3 MONTHS: 1) HAVE BEEN 2) HAVE BEEN TRANSFUSED THESE PATIENTS *MUST* BE COLLECTED WITHIN 3 DAYS OF THE SURGERY DATE. 43 ANY BLOOD NOT GIVEN WILL BE RELEASED AT 0700 ON THE ABOVE DATE UNLESS DOCTOR NOTIFIES LAB OTHERWISE. 44 PATIENT MAY HAVE RESULTS PER DOCTOR'S AUTHORIZATION. Questions regarding this report should be directed to your doctor. 45 THERAPEUTIC TARGET FOR THE TREATMENT OF DIABETES MELLITUS PATIENTS IS <7% HBA1C, AND IN SELECTIVE PATIENTS <6.0%. PLEASE REFER TO [place] [employer] DIABETIC CARE GUIDELINES FOR FURTHER INFORMATION. 46 CHOLESTEROL INTERPRETATION: Desirable: Less than 200 MG/DL Borderline-High Risk: 200-239 MG/DL High-Risk: 240 MG/DL and over 47 HDL INTERPRETATION: Undesirable: High Risk: Less than 40 MG/DL Desirable: Low Risk: Greater than 60 MG/DL 48 LDL INTERPRETATION: Low Risk Optimal Level: LDL Less than 100 MG/DL Near or Above Optimal: LDL 100-129 MG/DL Borderline High Risk: LDL 130-159 MG/DL High Risk: LDL 160-189 MG/DL Very High Risk: LDL Greater than 189 MG/DL 49 Anion gap measurement may be of limited value in the presence of any alkalosis, especially in a combined acid base disorder. . 50 Note change in reference range as of 04/19/08. The change was based on recommendations from the [place] [employer]. 51 Please note change in reference range effective 08 . 52 Anion gap measurement may be of limited value in the presence of any alkalosis, especially in a combined acid base disorder. . 53 Classification: Borderline High . 54 CALCULATED LDL APPROXIMATES THE VALUE OF A DIRECT LDL MEASUREMENT. Classification: Borderline High . 55 ---- RUN DATE: 03/15/07 [facility] NMI LIVE PAGE 1 RUN TIME: 1450 Specimen Inquiry RUN USER: INTERFACE [id number] SO WILLIS 56/F <REG REF 03/14> ([id number]) Brooks Mckeon MD -- Specimen: [id number] SOUT Spec Date: 03/14/[address]: Charlie lai MD Spec Type: SURGICAL P Received: 03/14/07-1226 Copies to: Akin Shea III, MD SPECIMEN BIOPSY POLYP AT CECUM HISTORY CLINICAL INFORMATION: 56 year old female with history of colon polyps GROSS DESCRIPTION The specimen is received in formalin labelled So Willis, Biopsy Polyp at Cecum, and consists of a keenan, soft tissue fragment measuring 0.4 x 0.2 x 0.2 cm. Submitted entirely, one cassette. DIAGNOSIS Colon, cecum, biopsy - Hyperplastic polyp. Signed Electronically by: MICHAEL RUANO MD 03/15/07 6658 -- -- DEPARTMENT OF PATHOLOGY, [address] [place] [address] [facility] Permit #[id number] Ruddy tSaton II, M.D. Director Michael Ruano M.D. Traveling Passenger Agent D irector -- Procedures Date CPT Code Description Status 10/25/201731267 Inject Tendon Sheath Or Ligament Aponeurosis Eg Plantar Completed Fascia 10/13/2017 Colonoscopy Completed 10/13/2017 68255 Colonoscopy Flexible Remove Tumor/Polyp/Lesion Snare Completed Technique 09/15/2017 63837 Inject/Drain Joint/Bursa Major Completed 09/08/201744131 Inject/Drain Joint/Bursa Major Completed 09/01/2017 63286 Inject/Drain Joint/Bursa Major Completed 07/06/2017 47644 Endoscopy Upper GI Biopsy Completed 06/25/201711548 Inject/Drain Joint/Bursa Major Completed 10/20/2016 10511 TKR Total Knee Replacement Completed 10/20/2016 12623 TKR Total Knee Replacement Completed 10/05/2016 38207 Stress Test Completed 10/05/2016 61234 Myocardial Perfusion Imaging Tomographic (Spect) Completed Multiple Studies 09/21/2016 00273 ECHO Transthoracic, Real-Time 2D With Doppler And Color Completed Flow 09/18/2016 13968 EKG Tracing & Interpretation Completed 08/03/2016 85808 EKG, Interpretation Only Completed 11/10/2012 20760 Nerve Conduction 07-08 Studies Completed 11/10/2012 60868 Needle Electromyography Complete, Five Or More Muscles Completed Studied 04/23/2009 Mammogram Completed Encounters Type Date Location Provider CPT E/M Dx Office Visit 01/21/2018 Rheumatology Services José Fishman M.D. 70699 M06.9 4:00p Of Lucita Z79.899 M85.89 M17.11 G62.9 Office Visit 11/10/2017 1:40p Rheumatology Services Of José Fishman 92003 M06.9 Lucita Charlton E87.6 Z79.899 M85.89 Office Visit 10/25/2017 8:00a Orthopedic Services Of Dori Pablo M.D. 50454 M17.11 C.M.A. M21.061 M65.352 M25.561 Office Visit 09/15/2017 8:00a [facility] Of Dori Pablo M.D. 19799 M25.561 C.M.A. M17.11 Office Visit 07/26/2017 9:45a Orthopedic Services Of Doridinesh Pablo 75206 M97.01xD C.M.Og Charlton M25.551 M21.371 M17.11 Office Visit 06/25/2017 9:15a [facility] Of Dori Pablo M.D. 52196 M21.371 C.M.A. M25.551 M97.01xD M17.11 M06.9 M25.561 M25.461 M21.061 Office Visit 03/04/2017 9:20a Rheumatology Services José Fishman 42847 M21.371 Of Lucita Charlton M17.11 M06.9 M51.36 G60.0 Office Visit 02/05/2017 10:30a [facility] Services Of Dori Pablo 92665 S84.10xA C.M.Og Charlton M21.371 Z96.652 Office Visit 01/18/2017 1:50p Neurosurgery Services Marvel Resendiz 32878 S84.10xA Of Luciat Charlton G61.82 Office Visit 01/01/2017 1:30p [facility] Of Dori Pablo 66505 S84.10xA C.MGavi Charlton M25.561 M25.461 M17.11 Office Visit 12/30/2016 2:40p Neurosurgery Services Marvle Resendiz 98605 S84.10xA Of Lucita Charlton M51.36 M21.371 Office Visit 12/02/2016 8:20a Rheumatology Services Of José Fishman 74199 M06.9 Lucita Charlton M17.0 Z79.899 Office Visit 10/21/2016 3[facility]37p [facility] 7[address]77 M06.9 Assoc,pc JEFF Hospitalists Z96.651 Office Visit 10/20/2016 3:19p [facility] Assoc,pc Eligio Thompson, 32628 M06.9 Hospitalists N.P. I10 Z96.651 Office Visit 10/16/2016 2:00p Cardiology Services Of Ever Love, 19731 R94.31 [facility], [facility] Office Visit 09/23/2016 11:00a Pulmonology And Sleep Kaitlin Barrera, 07151 G47.33 Services Of [facility] ESTHER RN, [facility]- Z01.811 M17.0 Office Visit 09/18/2016 11:20a Cardiology Services Of Ever Love, 81114 R06.02 [facility], [facility] R94.31 Z01.810 M17.0 Office Visit 09/03/2016 9:00a Rheumatology Services José Fishman 74315 M05.79 Of Lucita Charlton Z79.899 H04.123 Office Visit 08/05/2016 10:30a Orthopedic Services Of Dori Pablo M.D. 01188 M25.562 C.M.A. M17.0 Office Visit 07/10/2016 10:00a Orthopedic Services Of Dori Pablo M.D. 92575 M25.561 C.M.A. M25.562 M17.0 M25.461 M25.462 M05.79 Office Visit 06/04/2016 8:00a Rheumatology Services José Fishman 03970 M05.79 Of Lucita Charlton Z79.899 M15.0 Office Visit 03/04/2016 8:00a Rheumatology Services José Fishman 47382 M05.79 Of Lucita Charlton Z79.899 M15.0 Office Visit 12/04/2015 8:00a Rheumatology Services José Fishman 52905 M05.79 Of Lucita Charlton Z79.899 Office Visit 10/04/2015 8:30a Pulmonology And Sleep Kaitlin Barrera, 73514 G47.33 Services Of [facility] ESTHER, RN, [facility] G25.81 E66.9 Office Visit 10/02/2015 1:00p Rheumatology Services José Fishman, 83523 M05.79 Of [facility] Agustin.Jessie Z79.899 M79.1 M15.0 Office Visit 01/07/2015 10:20a Neurosurgery Services Tariq Victoria, 10371 721.1 Of [facility] M.DReddy 723.0 Office Visit 10/09/2014 10:40a Neurosurgery Services Tariq Victoria, 63194 721.1 Of [facility] M.DReddy 723.0 Office Visit 11/10/2012 10:30a [facility] Sheri Diane M.D. 39414 354.0 Services Of [facility] Office Visit 05/09/2009 2:30p [facility], [facility], [address] 401.1 [facility] M.D. 780.79 272.0 790.21 Office Visit 01/14/2009 11:00a [facility], [facility], 71348 V72.81 [facility] M.D. 401.1 272.0 790.21 Office Visit 06/21/2008 2:45p [facility], 1928–1983, 32834 782.1 [facility] M.D. 790.21 Office Visit 05/30/2008 9:30a [facility], [facility], 14605 466.0 [facility] M.D. 401.1 Office Visit 04/05/2007 3:00p [facility], [facility], 54972 272.0 [facility] M.D. 401.1 715.00 Plan of Care Future Appointment(s):02/21/2018 11:15 am - Dori Pablo M.D. at [facility]04/06/2018 11:20 am - José Fishman M.D. at [facility]02/08/2018 7:30 am - Rahat Sanches PA-C at [facility]02/08/2018 7:30 am - JEFF Brandon at [facility]03/30/2018 1:30 pm - Kaitlin Barrera DNP, RN, SECURITY BUSINESS ANALYST- at [facility]02/08/2018 7:30 am - Dori Pablo M.D. at [facility] [place]01/28/2018 - Dori Pablo M.D.M25.561 Pain in right kneeFollow up:Follow up: 2 weeks after muonhtpR66.061 Valgus deformity, not elsewhere classified, right kneeM17.11 Unilateral primary osteoarthritis, right knee
--- OUTSIDE RECORDS SUMMARY | 2018-02-08 05:59 | XMS REPORT ---
:1950 External Reference #:[id number] Author Organization [facility] Address [address] [address] Phone [phone] Care Team Providers Name Role Phone Ellie Carolina MD Primary Care Physician Unavailable Payers Type Date Identification Numbers Payment Provider Subscriber Medicare Primary Effective: Policy Number: Medicare So Briggs 2013 [id number] Mark PayID: [id number] [address] [place] [address] Medigap Part B Effective: 2001 Policy Number: BS Of [place] So Briggs [id number] Mark Expires: 2011 Group Number: [id number] [address] PayID: [id number] [place] [address] Medigap Part B Effective: 2014 Policy Number: Kayla Brgigs [id number] Mark PayID: [id number] [address] [place] [address] Problems Date Description Provider Status Onset: 01/07/2015 Cervical spondylosis with Tariq Victoria M.D. Active myelopathy Onset: 08/30/2009 Obstructive sleep apnea syndrome Kaitlin Barrera DNP, RN, Active WOOD DRILL OPERATOR-BC Onset: 07/10/2016 Localized, primary osteoarthritis Dori Pablo [...] by mouth Unknown drochlorothiaz 0000 every day abid Melatonin / Active Tablets 3mg 3-4 tabs [...] as M.D. 2017 needed for pain orally [place] 10/23/ Hx Tablets 5-325mg 60tabs one to [...] / Hx Tablets 500mg 1 PO qd Presley 0000 - Charlie, 2006 HCTZ/Triamtere / Hx [...] 0000 - 2016 Glucosamine-MS / Hx Capsules 2998-2829 daily Unknown M 0000 - 2016 Medications [...] Injection Everannetta Cabral 99M Shawnee Bloom M.D., [facility], Per Unit Dose FASNC Up To 40 Millicuries Vital Signs Date Vital Result Comment 01/21/2018 Height 67 inches 5'7" Weight 212.00 [...] Color Yellow Urine Appearance Cloudy Urine Specific [place] 1.018 1.010-1.030 Urine pH 7.0 5-9 Urine [...] Color YELLOW 34 Appearance-Urine CLOUDY 34 Specific [place]-Ur 1.013 1.010-1.030 34 Esterase-Urine NEGATIVE Negative 34 Nitrite NEGATIVE Negative 34 Ccfkeeiujbub-Zt-ERP NEGATIVE Negative 34 Protein-Urine NEGATIVE Negative 34 [...] check labs this week 7 Performed by [facility], [address] [place] [address] [email or web address], Case Vieira MD - Lab. Director Test Performed by: [facility] [address] [place] [address] 8 ADDITIONAL INFORMATION This test was developed and its performance characteristics determined by [facility] in a manner consistent with CLIA requirements. This test has not been cleared or approved by the U.S. Food and Drug Administration. Test Performed by: [facility] [place] [address] [place] [address] 9 Please check 2 days before her [...] 11/12/16 EXPIRES 05/08/17 PLEASE CALL RESULTS TO: [phone] TO BE DRAWN ON 14 *Ascorbic acid [...] [address]: Dori Pablo MD Acct: [id number] Unit: [id number] AGE: 65 Location: [facility] Re10/14/16 SEX: F Status: REG REF SPEC: [id number] CHRISTIANO: 10/14/16-1239 [facility] DR: Dori Pablo MD REQ: [id number] RECD: 10/14/16 STATUS: JAYLEEN CROWELL DR: Ellie Carolina MD _ SOURCE: URINE SPDESC: ORDERED: Urine Culture QUERIES: Urine Source: Random Procedure Result Reported Site Urine Culture Final 10/15/16- 1317 ML No growth of clinically significant organisms * ML - MAIN LAB ([facility]) . END OF REPORT * ML=Testing performed at Main Lab DEPARTMENT OF PATHOLOGY, [address] [place] [address] Michael Ruano M.D. Director [facility] # [id number] 17 Acute inflammation: >10.00 18 Please check 2 or 3 days prior to the next visit 19 Test Performed by: [address] [address] Bus Person: Ruddy Gil II, M.D., Ph.D. 20 Because [...] do this week 31 Test Performed by: [address] [address] Bus Person: Ruddy Gil II, M.D., Ph.D. 32 REFERENCE VALUE <20.0 (Negative) Test Performed by: [address] [address] Bus Person: Ruddy Gil II, M.D., Ph.D. 33 NO MRSA ISOLATED 34 SURGERY DATE 01/29/09 35 Anion gap measurement may be of limited value in the presence of any alkalosis, especially in a combined acid base disorder. . 36 Note change in reference range as of 04/19/08. The change was based on recommendations from the [place] [employer]. 37 Please note change in reference range effective 08 . 38 A metabolite of Naproxen, O-desmethylnaproxen, has been shown to interfere with the [place] method for measuring total bilirubin. Samples from [...] IN SELECTIVE PATIENTS <6.0%. PLEASE REFER TO [employer] [employer] DIABETIC CARE GUIDELINES FOR FURTHER [...] change was based on recommendations from the [place] [employer]. 51 Please note change in reference range effective 08 . 52 Anion gap measurement may be of limited value in the presence of any alkalosis, especially in a combined acid base disorder. . 53 Classification: Borderline High . 54 CALCULATED LDL APPROXIMATES THE VALUE OF A DIRECT LDL MEASUREMENT. Classification: Borderline High . 55 ---- RUN DATE: 03/15/07 [facility] NMI LIVE PAGE 1 RUN TIME: 1450 Specimen Inquiry RUN USER: INTERFACE [id number] SO WILLIS/Allan <REG REF 03/14> ([id number]) LAVONNE Sherwood MDBrooks -- Specimen: [id number] SYEDA Spec Date: 03/14/[address]: Charlie lai [...] Signed Electronically by: MICHAEL RUANO MD 03/15/07 1450 -- -- DEPARTMENT OF PATHOLOGY, [address] [place] [address] [facility] Permit #[id number] Ruddy Staton II, M.D. Director Michael SudLatesha anderson irector -- Procedures Date CPT Code Description Status 10/25/201789473 Inject Tendon Sheath Or Ligament Aponeurosis Eg Plantar Completed Fascia 10/13/2017 Colonoscopy Completed 10/13/2017 69347 Colonoscopy Flexible Remove Tumor/Polyp/Lesion Snare Completed Technique 09/15/201709952 Inject/Drain Joint/Bursa Major Completed 09/08/2017 Inject/Drain Joint/Bursa Major Completed 09/01/201704464 Inject/Drain Joint/Bursa Major Completed 07/06/2017 54315 Endoscopy Upper GI Biopsy Completed 06/25/2017 Inject/Drain Joint/Bursa Major Completed 10/20/2016 39137 TKR Total Knee Replacement Completed 10/20/2016 30765 TKR Total Knee Replacement Completed 10/05/2016 64585 Stress Test Completed 10/05/2016 39315 Myocardial Perfusion Imaging Tomographic (Spect) Completed Multiple Studies 09/21/2016 86626 ECHO Transthoracic, Real-Time 2D With Doppler And Color Completed Flow 09/18/2016 91110 EKG Tracing & Interpretation Completed 08/03/2016 24323 EKG, Interpretation Only Completed 11/10/2012 76547 Nerve Conduction 07-08 Studies Completed 11/10/2012 00804 Needle Electromyography Complete, Five Or More Muscles Completed Studied 04/23/2009 Mammogram Completed Encounters Type Date Location Provider CPT E/M Dx Office Visit 01/21/2018 Rheumatology Services José Fishman M.D. 44204 M06.9 4:00p Of [place] Z79.899 M85.89 M17.11 Office Visit 11/10/2017 1:40p [facility] Of José Fishman 12591 M06.9 [facility] Charlton E87.6 Z79.899 M85.89 Office Visit 10/25/2017 8:00a [facility] Of Dori Pablo M.D. 56179 M17.11 [facility] M21.061 M65.352 M25.561 Office Visit 09/15/2017 8:00a [facility] [place] [address]30 M25.561 [facility] M17.11 Office Visit 07/26/2017 9:45a [facility] Dori Pablo, 11481 M97.01xD C.M.Og Charlton M25.551 M21.371 M17.11 Office Visit 06/25/2017 9:15a [facility] [place] 16971 M21.371 [facility]. M25.551 M97.01xD M17.11 M06.9 M25.561 M25.461 M21.061 Office Visit 03/04/2017 9:20a Rheumatology Services José Fishman, 14705 M21.371 Of [facility] Charlton M17.11 M06.9 M51.36 G60.0 Office Visit 02/05/2017 10:30a [facility] Dori Pablo, 93180 S84.10xA C.M.Og [place] M21.371 Z96.652 Office Visit 01/18/2017 1:50p Neurosurgery Services Marvel Resendiz 92591 S84.10xA Of [facility]ita Charlton G61.82 Office Visit 01/01/2017 1:30p [facility] Of Dori Estradaisabela 85599 S84.10xA C.M.Og [place] M25.561 M25.461 M17.11 Office Visit 12/30/2016 2:40p Neurosurgery Services Marvel Resendiz 97796 S84.10xA Of [facility] Charlton M51.36 M21.371 Office Visit 12/02/2016 8:20a Rheumatology Services Of José Holcombidania 86180 M06.9 Lucita Charlton M17.0 Z79.899 Office Visit 10/21/2016 3:37p [facility] Laron Lynn, 67558 M06.9 Assoc, [place] Hospitalists Z96.651 Office Visit 10/20/2016 3:19p [facility], Eligio Thompson, 19515 M06.9 Hospitalists N.P. I10 Z96.651 Office Visit 10/16/2016 2:00p Cardiology Services Of [place], 67371 R94.31 [facility], [facility], [facility] Office Visit 09/23/2016 11:00a Pulmonology And Sleep Kaitlin Barrera, 63319 G47.33 Services Of [facility] CHRISSY SANTANA, [place] Z01.811 M17.0 Office Visit 09/18/2016 11:20a Cardiology Services Of [place], 30456 R06.02 [facility], [facility] R94.31 Z01.810 M17.0 Office Visit 09/03/2016 9:00a Rheumatology Services José Fishman 91322 M05.79 Of [employer] M.D. Z79.899 H04.123 Office Visit 08/05/2016 10:30a Orthopedic Services Of Dori Pablo M.D. 77825 M25.562 C.M.A. M17.0 Office Visit 07/10/2016 10:00a [facility] Of Dori Pablo M.D. 46021 M25.561 C.M.A. M25.562 M17.0 M25.461 M25.462 M05.79 Office Visit 06/04/2016 8:00a Rheumatology Services José Fishman 04779 M05.79 Of [place] M.D. Z79.899 M15.0 Office Visit 03/04/2016 8:00a Rheumatology Services José Fishman 46263 M05.79 Of [place] [employer] M.D. Z79.899 M15.0 Office Visit 12/04/2015 8:00a Rheumatology Services José Fishman 58605 M05.79 Of [place] M.D. Z79.899 Office Visit 10/04/2015 8:30a Pulmonology And Sleep Kaitlin Barrera, 25858 G47.33 Services Of Lucita SANTANA RN, SINGH G25.81 E66.9 Office Visit 10/02/2015 1:00p Rheumatology Services José Fishman 56799 M05.79 Of [facility] M.D. Z79.899 M79.1 M15.0 Office Visit 01/07/2015 10:20a Neurosurgery Services Tariq Victoria, 85734 721.1 Of [facility] M.D. 723.0 Office Visit 10/09/2014 10:40a Neurosurgery Services Tariq Victoria, 04606 721.1 Of [facility] M.D. 723.0 Office Visit 11/10/2012 10:30a [facility] Diane M.D. 58459 354.0 Services Of [facility] Office Visit 05/09/2009 2:30p [facility], 26059 401.1 [facility].D. 780.79 272.0 790.21 Office Visit 01/14/2009 11:00a [facility], 04412 V72.81 [facility] M.D. 401.1 272.0 790.21 Office Visit 06/21/2008 2:45p [facility], 65200 782.1 [facility].D. 790.21 Office Visit 05/30/2008 9:30a [facility], 49664 466.0 [facility] M.D. 401.1 Office Visit 04/05/2007 3:00p [facility], 69903 272.0 [facility] M.D. 401.1 715.00 Plan of Care Future Appointment(s):04/06/2018 11:20 am - José Fishman M.D. at [facility]umatology [facility]02/08/2018 7:30 am - Rahat Sanches PA-C at [facility]02/08/2018 7:30 am - JEFF Brandon at [facility]03/30/2018 1:30 pm - Kaitlin Barrera DNP, RN, WOOD DRILL OPERATOR- at Pulmonology And Sleep Services Of [facility]02/08/2018 7:30 am - Dori Pablo M.D. at [facility]01/28/2018 8:00 am - Dori Samy, M.D. at [facility]01/21/2018 - José Fishman M.D.M06.9 Rheumatoid arthritis, unspecifiedFollow up:Follow up in 2 or 3 months or sooner if qnamveG82.899 Other chcf (current) drug diziauwR82.89 Oth disrd of bone density and structure, multiple jbpwcX07.11 Unilateral primary osteoarthritis, right knee
[2018-02-08] MEDS ORDERED: DiMENhydriNATE IV* 50 MG/ML VIAL IV PUSH ONE (06:00)
[2018-02-08] MEDS ORDERED: DiMENhydriNATE IV* 50 MG/ML VIAL ONE (06:04)
[2018-02-08] MEDS ORDERED: ceFAZolin 2 GM PREMIX (*) 2 GM/50 ML BAG IVPB ONE (06:05)
[2018-02-08] MEDS ORDERED: Ondansetron ODT TAB* 4 MG ONE (06:25)
[2018-02-08] MEDS ORDERED: Lidocaine 2% PF * 5 ML VIAL ONE (06:25)
[2018-02-08] MEDS ORDERED: Propofol* 10 MG/ML 20 ML BTL IV PUSH ONE (06:25)
[2018-02-08] MEDS ORDERED: Dexamethasone IV* 4 MG/ML 1 ML (4 MG) ONE (06:25)
[2018-02-08] MEDS ORDERED: ROPIVACAINE 5 MG/ML 30 ML BTL (0.5%) ONE (06:25)
[2018-02-08] MEDS ORDERED: fentaNYL* 50 MCG/ML 2 ML VIAL (100 MCG VIAL) ONE ×3 (06:26→13:05)
[2018-02-08] MEDS ORDERED: KETAMINE HCL* 50 MG/ML 10 ML VIAL ONE (06:26)
[2018-02-08] MEDS ORDERED: Midazolam* 1 MG/ML 10 ML VIAL (10 MG) ONE (06:26)
[2018-02-08] MEDS ORDERED: Bupivacaine 0.25% SDV* 30 ML ONE (07:22)
[2018-02-08] MEDS ORDERED: EPHEDrine (Pressors)* 50 MG/ML VIAL ONE (07:38)
[2018-02-08] MEDS ORDERED: fentaNYL* 50 MCG/ML 5 ML VIAL (250 MCG VIAL) ONE (07:52)
[2018-02-08] MEDS ORDERED: Ondansetron INJ* 2 MG/ML VIAL IV PRN ×2 (09:04→10:41)
[2018-02-08] MEDS ORDERED: HYDROmorphone INJ* 1 MG/ML CARPUJECT SYRINGE IV PRN (09:04)
[2018-02-08] MEDS ORDERED: Naloxone* 0.4 MG/ML 1 ML VIAL IV PRN (09:04)
[2018-02-08] MEDS ORDERED: HYDROmorphone INJ* 0.5 MG/0.5 ML SYRINGE ONE ×2 (09:22→09:58)
[2018-02-08] MEDS ORDERED: Ketorolac INJ* 30 MG/ML 1 ML VIAL ONE (09:22)
[2018-02-08] MEDS ORDERED: oxyCODONE/Acetamin 5/325 MG* TAB PO PRN (10:41)
[2018-02-08] MEDS ORDERED: Morphine VIAL* 4 MG/ML VIAL (1 ml vial) IV PRN (10:41)
[2018-02-08] MEDS ORDERED: Magnesium Hydroxide LIQ* 30 ML UDC PO PRN (10:41)
[2018-02-08] MEDS ORDERED: Cyclobenzaprine TAB* 10 MG PO PRN (10:41)
[2018-02-08] MEDS ORDERED: Polyethylene Glycol 3350* 17 GM PACKET PO PRN (10:41)
[2018-02-08] MEDS ORDERED: Acetaminophen TAB* 325 MG PO PRN (10:41)
[2018-02-08] MEDS ORDERED: Ondansetron TAB* 4 MG PO PRN (10:41)
[2018-02-08] MEDS ORDERED: Bisacodyl SUPP* 10 MG SUPP PR PRN (10:41)
[2018-02-08] MEDS ORDERED: diPHENhydraMINE IV* 50 MG/ML 1 ml VIAL (BENADRYL) IV PRN (10:41)
[2018-02-08] MEDS ORDERED: Artificial Tears* 15 ML BTL BOTH EYES PRN (10:46)
[2018-02-08] MEDS ORDERED: Gabapentin CAP(*) 100 MG PO SCH (11:00)
[2018-02-08] MEDS ORDERED: NALTREXONE 4.5 MG PO SCH (11:00)
[2018-02-08] MEDS: fentaNYL* 50 MCG/ML 2 ML VIAL (100 MCG VIAL) IV PRN ×3 (11:31→13:07)
--- NOTE | 2018-02-08 11:48 | RAD ---
HISTORY: s/p right TKA COMPARISONS: January 01, 2017 VIEWS: 3, Frontal and lateral views of the right knee FINDINGS: BONE DENSITY: Normal. BONES: The patient is status post right knee arthroplasty. There is no hardware failure or osteolysis. JOINTS: The patient is status post right knee arthroplasty. ALIGNMENT: There is no dislocation. SOFT TISSUES: Unremarkable. OTHER FINDINGS: None. IMPRESSION: STATUS POST RIGHT KNEE ARTHROPLASTY
[2018-02-08] MEDS ORDERED: oxyCODONE/Acetamin 5/325 MG* TAB ONE (13:59)
[2018-02-08] MEDS: ceFAZolin 1 GM in Dextrose (*) 1 GM/50 ML BAG IVPB SCH (16:32)
[2018-02-08] MEDS ORDERED: Warfarin TAB(*) 6 MG PO ONE (17:00)
--- NOTE | 2018-02-08 17:14 | CONS ---
[facility] MEDICINE CONSULTATION REPORT: DATE OF ADMISSION: 02/08/18. DATE OF CONSULTATION: 02/08/18. ATTENDING PHYSICIAN: Dr. Dori Pablo. CONSULTING PHYSICIAN: Jamia Stubbs MD (dictation provided by Jazmin Gary NP) REASON FOR CONSULTATION: Medical comanagement in a patient admitted for right total knee arthroplasty. HISTORY OF PRESENT ILLNESS: Ms. Chester Flores is a 67-year-old female with a past medical history of rheumatoid arthritis, osteoarthritis, sleep apnea with CPAP use and hypertension who presents today to the hospital with a plan for an elective right total knee arthroplasty. Please see the dictated H and P from Dr. Pablo for complete details. In brief, Ms. Chester Flores states she was feeling quite well prior to surgery other than her ongoing right knee pain. She has been following with Dr. Pablo and has failed conservative management and therefore is now proceeding for right total knee arthroplasty today. She denies any recent acute complaints including fevers, chills, chest pain, cough, nausea, vomiting, diarrhea or abdominal pain. PAST MEDICAL HISTORY: 1. Hypertension. 2. Hyperlipidemia. 3. Rheumatoid arthritis. 4. History of breast cancer. 5. Anxiety and depression. 6. Sleep apnea. 7. History of femur fracture. 8. Red's esophagus. PAST SURGICAL HISTORY: 1. Right total hip arthroplasty. 2. ORIF of right periprosthetic femur fracture. 3. Right carpal tunnel release. 4. Lumpectomy. 5. Appendectomy. 6. Tonsillectomy. 7. Adenoidectomy. 8. Laminectomy. 9. Abdominal surgeries. CURRENT MEDICATIONS: 1. Naltrexone 4.5 mg every day. (The patient holding medication prior to surgery.) 2. Multivitamin with mineral 1 tablet p.o. daily. 3. Sertraline 100 mg p.o. q. p.m. 4. Ubidecarenone 100 mg p.o. q. a.m. 5. Atenolol 25 mg p.o. at bedtime. 6. Atorvastatin 20 mg q. p.m. 7. Diltiazem 180 mg p.o. q. p.m. 8. Famotidine 20 mg p.o. b.i.d. 9. Gabapentin 200 mg in the a.m. and 400 mg at night. 10. Hypromellose 0.3% gel 1 drop both eyes q.i.d., p.r.n. 11. Melatonin 3 mg 3 tablets p.o. q. p.m. 12. Naltrexone 4.5 mg per routine and then triamterene hydrochlorothiazide 75/ 50 one p.o. q. p.m. ALLERGIES: To SULFA. FAMILY HISTORY: Positive for hypertension, coronary artery disease, COPD, Alzheimer's and rheumatoid arthritis. SOCIAL HISTORY: The patient lives alone. There is no report of alcohol, tobacco or drug use. Her brother would be the healthcare proxy. REVIEW OF SYSTEMS: A 14-point review of systems was completed with Ms. Briggs and all those not mentioned above were negative. PHYSICAL EXAM: Vital Signs: Temperature 97.2, heart rate 74, respiratory rate 16, O2 saturation 98% on room air, blood pressure 152/74. General: Ms. Briggs is lying in the bed in the PACU. She is in no acute distress. Neuro: She is alert. She is oriented x3. She moves all extremities equally other than the right knee, which is limited by the knee immobilizer in the immediate postoperative period. There is no facial asymmetry or focal weakness. Extraocular movements are intact. Heart: S1, S2. No murmur, rub or gallop and regular. Lungs are clear to auscultation bilaterally with no accessory muscle use and good aeration. The abdomen is soft, nontender with bowel sounds positive x4. Extremities: No cyanosis or edema. Skin is intact. DIAGNOSTIC STUDIES/LAB DATA: Preoperatively on 01/28/18, the white blood cell count was 6.8, hemoglobin 13.4, hematocrit 35, platelet count 229. Sodium 142, potassium 3.7, chloride 106, serum bicarbonate 26, BUN 21, creatinine 0.73, glucose 95. ASSESSMENT: Ms. Chester Flores is a 67-year-old female with a past medical history of hypertension, hyperlipidemia, anxiety and depression, as well as ongoing issues with right knee pain. He presents today to the hospital for a planned elective right total knee arthroplasty with Dr. Pablo. PLAN/RECOMMENDATIONS: Our recommendations are as follows: 1. Right total knee arthroplasty: Management will continue per orthopedic services. The patient will have pain medication p.r.n. with a bowel regimen. She will have physical and occupational therapy. We will monitor her H and H closely. 2. Hypertension: The patient takes atenolol, triamterene/hydrochlorothiazide, and diltiazem at home. For now, plan to continue atenolol and diltiazem, but we will hold triamterene/hydrochlorothiazide and we will resume when the patient is taking adequate oral intake. 3. Hyperlipidemia. Continue atorvastatin. 4. Anxiety/depression. Hold sertraline while using warfarin due to medication interaction. 5. History of GERD. Continue famotidine. 6. DVT prophylaxis with warfarin and Lovenox per Ortho. 7. History of obstructive sleep apnea. Continue home CPAP. 8. Code status is full code. TIME SPENT: Approximately 45 minutes were spent on the admission of this patient, more than half the time spent with the patient at the bedside reviewing the events leading up to this hospitalization, performing the physical examination, and reviewing my plan of care. JAZMIN GARY NP [id number]/[facility] #: [id number] ARIANE
[2018-02-08] MEDS: Diltiazem CD CAP* 180 MG PO SCH (17:51)
[2018-02-08] MEDS: Atorvastatin* 20 MG TAB PO SCH (17:51)
[2018-02-08] MEDS: PYRIDOXINE HCL PO SCH (17:54)
[2018-02-08] MEDS: MELATONIN PO SCH (17:54)
[2018-02-08] MEDS ORDERED: Triamterene/HCTZ 75-50 MG* TAB PO SCH (18:00)
[2018-02-08] MEDS: oxyCODONE/Acetamin 5/325 MG* TAB PO PRN ×2 (18:19→22:15)
[2018-02-08] MEDS: Famotidine TAB* 20 MG PO SCH (20:38)
[2018-02-08] MEDS: Docusate CAP* 100 MG PO SCH (20:38)
[2018-02-08] MEDS: Atenolol TAB* 25 MG PO SCH (20:38)
[2018-02-08] MEDS: oxyCODONE TAB* 5 MG TAB PO PRN (20:38)
[2018-02-08] MEDS: Magnesium Hydroxide LIQ* 30 ML UDC PO SCH (20:41)
[2018-02-09] MEDS: ceFAZolin 1 GM in Dextrose (*) 1 GM/50 ML BAG IVPB SCH ×2 (00:28→07:47)
[2018-02-09] MEDS: oxyCODONE/Acetamin 5/325 MG* TAB PO PRN ×5 (03:36→22:32)
[2018-02-09 06:36] LABS: Hematocrit 31 % (35-47); Hemoglobin 10.6 g/dl (12.0-16.0); Mean Platelet Volume 8.3 um3 (7.4-10.4); Platelet Count 191 10^3/ul (150-450)
[2018-02-09 06:39] LABS: INR 0.95 (0.77-1.02)
[2018-02-09 06:53] LABS: EGFR Non-African American 81.6 (>60)
[2018-02-09] MEDS: Famotidine TAB* 20 MG PO SCH ×2 (08:16→20:23)
[2018-02-09] MEDS: Docusate CAP* 100 MG PO SCH ×2 (08:16→20:24)
[2018-02-09] MEDS: Magnesium Hydroxide LIQ* 30 ML UDC PO SCH ×2 (08:16→20:23)
--- NOTE | 2018-02-09 11:49 | OP ---
DATE OF OPERATION: 02/08/18 - ROOM #346 DATE OF : 46 ATTENDING SURGEON: Dori Pablo MD HOME CARE PHYSICAL THERAPIST: KENNETH Vogel. Ms. Dubois did help throughout the procedure with preparation of the leg, wound retraction, manipulation of the knee, and wound closure. ANESTHESIOLOGIST: Dr. Lee. ANESTHESIA: General. PRE-OP DIAGNOSIS: Severe end-stage degenerative osteoarthritis of the right knee joint with valgus deformity. POST-OP DIAGNOSIS: Severe end-stage degenerative osteoarthritis of the right knee joint with severe 22-degree valgus deformity and severe muscle contracture. OPERATIVE PROCEDURE: Right total knee arthroplasty with modifier for a prolonged operative time due to complexity of procedure. COMPLICATIONS: None. TOURNIQUET TIME: 91 minutes. ESTIMATED BLOOD LOSS: 300 cc. HARDWARE USED: This is a cemented [employer] total knee arthroplasty hardware. Two packages of Simplex bone cement. For the femur, a right size 5 Legion posterior stabilized narrow femoral component. For the tibia, a size 3 Kimberly II right tibial base plate, size 3. For the insert, a 9-mm posterior stabilized articular insert size 3-4. For the patella, a 29-mm 3-peg all poly patella with 7.5 thickness. BRIEF HISTORY/INDICATION: Ms. Chester Flores is a 67-year-old female with years of increasingly severe right knee pain and valgus deformity. She failed conservative treatment with antiinflammatories, pain medication, intraarticular injection, and physical therapy. Radiographs showed severe [id number] arthritis with over 20-degree valgus deformity. Due to continued pain and decreased quality of life, the patient elected to undergo right total knee arthroplasty. Informed consent was obtained from the patient. She understood the risks of the procedure included but were not limited to bleeding, infection , damage to nearby structures, continued pain, need for further surgery, intraoperative fracture, nerve palsy, hardware failure or loosening, knee stiffness, loss of motion, stroke, heart attack, blood clot, and . She wished to proceed. INTRAOPERATIVE FINDINGS: Intraoperatively, the patient was noted to have severe loss of motion of this knee with lacking 20 degrees from full extension and flexing only to 65 degrees. She had 22-degree valgus deformity in the coronal plane. She had extensive osteophyte formation and complete loss of cartilage in all 3 compartments. Due to the patient's significant contractures and valgus deformity, this case did take at least 1 hour longer than normal operative time. DESCRIPTION OF PROCEDURE: Ms. Chester Flores was identified in the preanesthesia unit. Her right lower extremity was marked as the correct operative side. Informed consent was signed and placed in the chart. The patient was taken to the operating room and placed under general anesthesia. A Vega catheter was placed. Tourniquet was placed on the right thigh. Right lower extremity was prepped and draped in the usual sterile fashion. Preop time-out was made to correctly identify the patient, side and site. Appropriate perioperative antibiotics were given within 1 hour of incision. Tourniquet was inflated and total tourniquet time for this procedure was 91 minutes, approximately double the time of normal procedure. This was due to the patient's extreme flexion contracture, valgus deformity and osteophyte formation. The patient 's tourniquet was inflated. A midline incision was made and carried down to the extensor mechanism. A new 10 blade was used to make a standard medial parapatellar arthrotomy. Electrocautery was used to subperiosteally elevate the soft tissue off the superomedial tibia to the mid sagittal plane. The knee was flexed up. We could flex only to 65 to 70 degrees because of her chronic flexion contracture. At this point, the knee was extended. Medial parapatellar arthrotomy was continued superiorly. The patella was everted. Extensive osteophytes were carefully removed with a rongeur. The patella was subluxed laterally and the knee was flexed up now to approximately 70 degrees. The Visionaire custom cutting block for the femur was then pinned on the distal femur. There was no ACL or lateral meniscus. Distal femoral cut was made using the oscillating saw. Visionaire preop template had templated to 6. Size 6 multi-cutting jig was placed on the distal femur and was clearly too large. A size 5 multi-cutting jig was pinned on the distal femur. Oscillating saw was used to make the appropriate chamfer cuts. Extensive osteophytes were carefully removed from around the femur. The PCL was carefully released. Tibia was subluxed anteriorly. Visionaire custom cutting block could not be placed due to the contracture around the knee. Extramedullary tibial cutting guide was pinned on the proximal tibia. Oscillating saw was used to make the proximal tibial cut perpendicular to the mechanical axis of the tibia. The bone was carefully removed. The knee was brought out into full extension. A spacer block had good fit with the knee in full extension. Lateral side was tight. Significant soft tissue release was performed laterally using electrocautery along the posterolateral capsule. A #15 blade was used to perform conservative pie- crusting technique along the lateral ligaments. The knee was flexed up. [employer] environmental services specialist was placed both medially and laterally. Any remaining meniscus was carefully removed using electrocautery. Significant amount of time was used to remove posterior osteophytes and loose bodies. Electrocautery was used to obtain meticulous hemostasis around the posterior capsule. Tibial tray and drop amy were placed and confirmed a satisfactory tibial cut. Medial and lateral ligaments were well balanced with the spacer block. Flexion and extension gaps were well balanced. A size 5 right narrow femoral trial was impacted on to the distal femur. There was excellent stability. The box for the posterior stabilized implant was prepared using a reamer and box cut osteotome. Size 3 tibial tray trial with a 9-mm insert trial was placed, and the knee was taken through a range of motion. The knee had full extension to 110 degrees of flexion. Quadriceps and soft tissue were extremely tight and contracted. I could flex no more than 110 degrees. There was satisfactory patellofemoral tracking. The patella was everted. 7 mm of patellar bone and cartilage was carefully removed using an oscillating saw. The patella was sized to a size 29. A 29 trial patella was placed and the knee was taken through a range of motion. There was satisfactory patellofemoral tracking. All trials were removed. The tibia was subluxed anteriorly and sized to a size 3. Proximal tibia was prepared using a size 3 keel punch. All bony cut surfaces were copiously irrigated with sterile saline and dried. Final implants were cemented into place starting with the tibia, followed by the femur and last the patella. A 9-mm insert trial was placed and the knee was brought out into full extension. Tourniquet was turned down at 91 minutes. The knee was copiously irrigated with sterile saline. Electrocautery was used to obtain meticulous hemostasis. Once the cement had fully cured, the insert trial was removed. Any excess cement was removed from around the hardware and capsule. Final insert chosen was a 9-mm posterior stabilized articular insert, size 3/4. This was locked into position on the tibial tray. Stability of the insert was checked and rechecked and noted to be stable. The patient's knee was copiously irrigated with sterile saline. The extensor mechanism was closed using interrupted #1 Vicryl over a medium Hemovac drain. The rest of the incision was closed in a layered fashion using 0 and 2-0 Vicryl. Skin was closed using running 3-0 nylon suture. Sterile Xeroform, 4x4' s, and Webril were used to cover the incision. Bobo wrap and cold pack were placed over this. The patient's anesthesia was reversed without difficulty. She was taken to the PACU in stable condition. She is distally neurovascularly intact. Intended weightbearing will be weightbearing as tolerated. Intended DVT prophylaxis will be Coumadin with a Lovenox bridge. [id number]/[facility] #: [id number] MTDD
[2018-02-09] MEDS: Enoxaparin(*) 30 MG/0.3 ML SYR SUBCUT SCH (12:17)
--- NOTE | 2018-02-09 12:25 | PN ---
Progress Note - Progress Note Date of Service: 02/09/18 SOAP: Subjective: [Pt is a 67 y/o female who underwent a Right total knee arthroplasty on 2017. The pt was seen this am sitting up in her chair. She states she is doing quite well. Pain is under control and she would be willing to go home today if her brother who will take her home and stay with her was in town. She feels tomorrow would be a good day to go home. She denies any chest pain, no SOB. ] Objective: [General: Pt is alert, awake and oriented. NAD MSK, RLE: Dressing is c/d/i. +df/pf. Calf soft and non tender. 2+ DP pulse, NVI] Vital Signs Temp 98.0 F 02/09/18 11:28 Pulse 71 02/09/18 11:28 Resp 18 02/09/18 12:19 BP 101/60 02/09/18 11:28 Pulse Ox 98 02/09/18 11:28 Intake & Output 02/08/18 02/09/18 02/09/18 18:59 06:59 18:59 Intake Total 2880 1595 1816 Output Total 400 1650 Balance 2480 -55 1816 Intake: IV Fluids 2400 1035 796 ABX - CEFAZOLIN 55 55 LR 2400 980 741 Oral 096 468 3492 Output: Vega 400 1650 Other: Estimated Void Medium # Voids 1 Assessment: [POD 1 RTKA] Plan: [- Continue with PT/OT - DC planned for tomorrow morning - INR 0.95, 8mg of warfarin tonight - Continue with current pain medication - hospitalists co - managing]
--- NOTE | 2018-02-09 15:00 | PN ---
Subjective Date of Service: 02/09/18 Interval History: Patient feels very good today compared to previous surgeries. Pain 5/10 in right knee. No CP, SOB, N/V, abdominal pain, dysuria, diarrhea, or other pain. No recent disease activity from RA. Family History: Unchanged from Admission Social History: Unchanged from Admission Past Medical History: Unchanged from Admission Objective Active Medications: Acetaminophen (Tylenol Tab*) 650 mg PO Q4H PRN PRN Reason: PAIN OR TEMPERATURE Atenolol (Tenormin Tab*) 25 mg PO BEDTIME [facility] Last Admin: 02/08/18 20:38 Dose: 25 mg Atorvastatin Calcium (Lipitor*) 20 mg PO QPM [facility] Last Admin: 02/08/18 17:51 Dose: 20 mg Bisacodyl (Dulcolax Supp*) 10 mg NM DAILY PRN PRN Reason: constipation Cyclobenzaprine HCl (Flexeril Tab*) 10 mg PO TID PRN PRN Reason: SPASMS Diltiazem HCl (Cardizem Cd Cap*) 180 mg PO QPM [facility] Last Admin: 02/08/18 17:51 Dose: 180 mg Diphenhydramine HCl (Benadryl Iv*) 12.5 mg IV Q6H PRN PRN Reason: PRURITIS Docusate Sodium (Colace Cap*) 100 mg PO BID [facility] Last Admin: 02/09/18 08:16 Dose: 100 mg Enoxaparin Sodium (Lovenox(*)) 30 mg SUBCUT Q24H [facility] Last Admin: 02/09/18 12:17 Dose: 30 mg Famotidine (Pepcid Tab*) 20 mg PO BID [facility] Last Admin: 02/09/18 08:16 Dose: 20 mg Lactated Ringer's (Lactated Ringers 1000 Ml Bag*) 1,000 mls @ 100 mls/hr IV PER RATE [facility] Last Admin: 02/09/18 00:27 Dose: 100 mls/hr Lactulose (Lactulose*) 30 ml PO Q6H PRN PRN Reason: constipation Magnesium Hydroxide (Milk Of Magnesia Liq*) 30 ml PO BID [facility] Last Admin: 02/09/18 08:16 Dose: 30 ml Magnesium Hydroxide (Milk Of Magnesia Liq*) 30 ml PO Q6H PRN PRN Reason: constipation Morphine Sulfate (Morphine Vial*) 2 mg IV Q2H PRN PRN Reason: PAIN Non-Formulary Medication (Melatonin/Pyridoxine Hcl (B6) [Melatonin 3 Mg Tablet] ) 3 tab PO QPM [facility] Last Admin: 02/08/18 17:54 Dose: Not Given Ondansetron HCl (Zofran Inj*) 4 mg IV Q6H PRN PRN Reason: nausea Ondansetron HCl (Zofran Tab*) 4 mg PO Q6H PRN PRN Reason: NAUSEA Oxycodone HCl (Roxycodone Tab*) 10 mg PO Q4H PRN PRN Reason: SEVERE PAIN Last Admin: 02/08/18 20:38 Dose: 10 mg Oxycodone/Acetaminophen (Percocet 5/325 Tab*) 2 tab PO Q4H PRN PRN Reason: PAIN Last Admin: 02/09/18 12:17 Dose: 2 tab Oxycodone/Acetaminophen (Percocet 5/325 Tab*) 1 tab PO Q4H PRN PRN Reason: PAIN Pharmacy Profile Note (Coumadin Daily Reminder*) 1 note FOLLOW UP 1700 [facility] Last Admin: 02/08/18 16:40 Dose: 1 note Polyethylene Glycol/Electrolytes (Miralax*) 17 gm PO DAILY PRN PRN Reason: Constipation Polyvinyl Alcohol (Polyvinyl Alcohol 1.4% Opth*) 1 drop BOTH EYES QID PRN PRN Reason: DRY EYE Warfarin Sodium (Coumadin Tab(*)) 8 mg PO ONCE@1700 ONE PRN Reason: Protocol Stop: 02/09/18 17:01 Vital Signs - 8 hr 02/09/18 02/09/18 02/09/18 07:03 07:45 08:00 Temperature 98.6 F Pulse Rate 70 Respiratory 18 18 16 Rate Blood Pressure 101/54 (mmHg) O2 Sat by Pulse 97 97 Oximetry 02/09/18 02/09/18 02/09/18 11:28 12:17 12:19 Temperature 98.0 F Pulse Rate 71 Respiratory 18 18 18 Rate Blood Pressure 101/60 (mmHg) O2 Sat by Pulse 98 Oximetry 02/09/18 14:34 Temperature Pulse Rate Respiratory 18 Rate Blood Pressure (mmHg) O2 Sat by Pulse Oximetry Oxygen Devices in Use Now: None Appearance: Patient is a 67yo female who appears stated age and is sitting in the bed in [facility]. Eyes: No Scleral Icterus, PERRLA Ears/Nose/Mouth/Throat: NL Teeth, Lips, Gums, Clear Oropharnyx, Mucous Membranes Moist Neck: NL Appearance and Movements; NL JVP, Trachea Midline Respiratory: Symmetrical Chest Expansion and Respiratory Effort, Clear to Auscultation Cardiovascular: NL Sounds; No Murmurs; No JVD, RRR, No Edema Abdominal: NL Sounds; No Tenderness; No Distention, No Hepatosplenomegaly Lymphatic: No Cervical Adenopathy Extremities: No Edema, No Clubbing, Cyanosis Skin: No Nodules or Sclerosis, - - Right knee covered with CDI bulky dressing. Neurological: Alert and Oriented x 3, NL Sensation, NL Muscle Strength and Tone , - - CN II-XII intact. Result Diagrams: 02/09/18 06:12 02/09/18 06:12 Assess/Plan/Problems-Billing Assessment: Patient is a 67yo female with a PMH for RA, OA, HTN, HLD, JN who is S/P RTKA and is doing well. - Patient Problems (1) Post-operative state Current Visit: Yes Status: Acute Code(s): Z98.890 - OTHER SPECIFIED POSTPROCEDURAL STATES SNOMED Code(s): 77916244 Comment: Management Per Ortho. Pain well controlled. PT/OT. Vega removed. H/ H stable. (2) Hyperlipidemia Current Visit: No Status: Acute Code(s): E78.5 - HYPERLIPIDEMIA, UNSPECIFIED SNOMED Code(s): 77193415 Comment: Continue lipitor. (3) Hypertension Current Visit: No Status: Acute Code(s): I10 - ESSENTIAL (PRIMARY) HYPERTENSION SNOMED Code(s): 73900651 Comment: B[place]eline hypotensive. Continue Atenolol and Diltiazem, Hold HCTZ/Triamterene and resume when able. (4) JN (obstructive sleep apnea) Current Visit: No Status: Acute Code(s): G47.33 - OBSTRUCTIVE SLEEP APNEA ( ADULT) (PEDIATRIC) SNOMED Code(s): 24251283 Comment: Using home CPAP machine (5) Rheumatoid arthritis Current Visit: No Status: Acute Code(s): M06.9 - RHEUMATOID ARTHRITIS, UNSPECIFIED SNOMED Code(s): 05127583 Comment: Managed with low dose naltrexone, being held post op for appropriate pain management Also treated with Tumeric and Cat's Claw. (6) DVT prophylaxis Current Visit: Yes Status: Acute Code(s): SZP7884 - SNOMED Code(s): 481830561 Comment: Lovenox to coumadin per ortho. (7) Full code status Current Visit: Yes Status: Acute Code(s): Z78.9 - OTHER SPECIFIED HEALTH STATUS SNOMED Code(s): 435268862
[2018-02-09] MEDS ORDERED: Warfarin TAB(*) 4 MG PO ONE (17:00)
[2018-02-09] MEDS: Diltiazem CD CAP* 180 MG PO SCH (17:19)
[2018-02-09] MEDS: Atorvastatin* 20 MG TAB PO SCH (17:19)
[2018-02-09] MEDS: MELATONIN PO SCH (17:21)
[2018-02-09] MEDS: PYRIDOXINE HCL PO SCH (17:21)
[2018-02-09] MEDS: Atenolol TAB* 25 MG PO SCH (20:23)
[2018-02-09] MEDS: oxyCODONE TAB* 5 MG TAB PO PRN (20:24)
[2018-02-10] MEDS: oxyCODONE TAB* 5 MG TAB PO PRN (00:28)
[2018-02-10] MEDS: oxyCODONE/Acetamin 5/325 MG* TAB PO PRN ×2 (03:50→09:07)
[2018-02-10 06:01] LABS: Hematocrit 28 % (35-47); Hemoglobin 9.4 g/dl (12.0-16.0); Mean Platelet Volume 8.6 um3 (7.4-10.4); Platelet Count 170 10^3/ul (150-450)
[2018-02-10 06:03] LABS: INR 1.33 (0.77-1.02)
[2018-02-10 07:52] VITALS: BP 126/59
--- NOTE | 2018-02-10 07:55 | PN ---
Progress Note - Progress Note Date of Service: 02/10/18 SOAP: Subjective: [Pt reports doing well - pain well controlled with po meds. Has done stairs with PT. Feels ready to go home with VNS. Denies CP, SOB, calf pain, dizziness.] Objective: [A and O x 3, NAD. Seated in chair. R knee dressing changed. Surgical wound benign. No drainage or erythema. Calf soft, NT. Distal gross motor and NV function intact. Laboratory Results - last 24 hr 02/10/18 02/10/18 05:21 05:21 Hgb 9.4 L Hct 28 L Plt Count 170 MPV 8.6 INR (Anticoag Therapy) 1.33 H Vital Signs: Temp Pulse Resp BP Pulse Ox 98.5 F 77 16 126/59 95 02/10/18 07:26 02/10/18 07:26 02/10/18 07:26 02/10/18 07:26 02/10/18 07:26 ] Assessment: [67 you female s/p R TKA POD #2 doing well] Plan: [Lovenox prior to D/C Con't coumadin -6 mg tonight Pain management D/C patient home with VNS F/U with Dr. Pablo in 2 weeks]
[2018-02-10] MEDS: Magnesium Hydroxide LIQ* 30 ML UDC PO SCH (08:30)
[2018-02-10] MEDS: Famotidine TAB* 20 MG PO SCH (08:31)
[2018-02-10] MEDS: Docusate CAP* 100 MG PO SCH (08:31)
[2018-02-10] MEDS: Enoxaparin(*) 30 MG/0.3 ML SYR SUBCUT SCH (08:31)
--- NOTE | 2018-02-10 11:23 | DS ---
DATE OF ADMISSION: 02/08/2018. DATE OF DISCHARGE: 02/10/2018. ATTENDING SURGEON: Dr. Dori Pablo * (dictated by KENNETH Johnson). ADMITTING DIAGNOSES: Right knee osteoarthritis, hypertension, high cholesterol , rheumatoid arthritis, breast cancer, sleep apnea, Red's esophagus. DISCHARGE DIAGNOSES: Status post right total knee arthroplasty, hypertension, high cholesterol, rheumatoid arthritis, breast cancer, sleep apnea, Red's esophagus. PROCEDURE: Right total knee arthroplasty. CONSULTANTS: Physical Therapy, Occupational Therapy, and Medicine. BRIEF HISTORY: Ms. Chester Flores is a 67-year-old female with severe degenerative osteoarthritis of her right knee. She failed conservative treatment measures and elected to undergo a right total knee arthroplasty on 07/[address] Pablo. HOSPITAL COURSE: Ms. Chester Flores was admitted to [facility] on 07/2018. She underwent an uncomplicated right total knee arthroplasty. Postoperative she recovered in the Short Stay Surgical Unit. Her Vega catheter was removed on postoperative day one and she was able to urinate on her own. On postoperative day two, she did not have a bowel movement, but was passing flatus. She advanced to a regular diet without difficulty. Her pain was well-controlled with Percocet. She was restarted on home medications. Her vital signs and labs remain stable. She was able to bear weight as tolerated on the right lower extremity. She advanced appropriately with physical therapy and occupational therapy. Her DVT prophylaxis was bridged with Lovenox and Coumadin. By postoperative day two, she was orthopedically and medically stable for discharge home with services. PHYSICAL EXAMINATION: General: On examination, the patient is noted to be calm and cooperative, in no acute distress. She is alert and oriented times three. Vital Signs: On the day of discharge, temperature 98.7, pulse rate 71, respiratory rate 16, O2 sat on room air 94 percent, blood pressure 127/52. Extremities: Examination of her right lower extremity demonstrates a dressing overlying the right knee which is clean, dry, and intact. Her calf is soft and nontender. Distally, she has +2 palpable DP pulse. 5/5 ankle dorsiflexion and plantarflexion. Sensation is intact to light touch. LABORATORY DATA: On the day of discharge, hemoglobin 9.4, hematocrit 28. INR 1.33. RADIOGRAPHS: Postoperative radiographs of the right knee demonstrate a right total knee arthroplasty with satisfactory prosthesis placement and no acute bony abnormalities. DISCHARGE MEDICATIONS: 1. Naltrexone 4.5 mg every other day. 2. Gabapentin 300 mg every day. 3. Atenolol 25 mg daily. 4. Atorvastatin Calcium 20 mg daily. 5. Sertraline 100 mg daily. 6. Triamterene Hydrochlorothiazide 75/50 mg daily. 7. Melatonin at bedtime as needed. 8. Multivitamin daily. 9. CoQ10 daily. 10. Diltiazem 180 mg daily. 11. Famotidine 20 mg twice a day. 12. Coumadin mg as directed. 13. Percocet 5/325 one to two tabs q.4 to 6 hours prn pain. 14. Colace 100 mg p.o. t.i.d. prn constipation. CONDITION ON DISCHARGE: Stable. DISCHARGE INSTRUCTIONS: Ms. Chester Flores is a 67-year-old female, postoperative day number two, status post right total knee arthroplasty which was uncomplicated. She is orthopedically and medically stable to be discharged home with services. She has stable vital signs and labs. She has restarted on her home medications. She will take 6 mg of Coumadin ton, ; 4 mg of Coumadin on Wednesday; 6 mg on Wednesday; and 4 on Wednesday night. She will have blood drawn on Wednesday to recheck her INR and will have INR draws Mondays and with visiting nurse services. She will remain weightbearing as tolerated on the right lower extremity. She will have home physical therapy twice a day and take Percocet for pain control. Colace will be used up to three times a day for constipation. She will follow-up in the office with Dr. Pablo 10 to 14 days for incision check and suture removal. She was instructed to call Dr. Pablo or go immediately to the ER should she develop any new fevers , chills, incision pain, redness, or drainage. She was instructed to go immediately to the ER should she develop chest pain or shortness of breath. KENNETH JOHNSON [id number]/[facility] #: [id number] [facility] HOSPITALMaribell
== END 2018-02-10 09:25 | disposition home health service (06) | DRG 470 ==
LOC: AA 05:53 → SSU 13:37
PROVIDERS: ADMIT Orthopaedic Surgery Adult Reconstructive Orthopaedic Surgery; ATTEND Orthopaedic Surgery Adult Reconstructive Orthopaedic Surgery
PROC: 0SRC0J9 Replacement of Right Knee Joint with Synthetic Substitute, Cemented, Open Approach (ICD-10-PCS; principal; 2018-02-08 07:30)
DX: M17.11 Unilateral primary osteoarthritis, right knee (principal); I10 Essential (primary) hypertension; M06.9 Rheumatoid arthritis, unspecified; K22.70 Barrett's esophagus without dysplasia; M21.061 Valgus deformity, not elsewhere classified, right knee; F41.9 Anxiety disorder, unspecified; F32.9 Major depressive disorder, single episode, unspecified; Z96.641 Presence of right artificial hip joint; E88.81 Metabolic syndrome and other insulin resistance; E66.9 Obesity, unspecified; L92.0 Granuloma annulare; Z96.652 Presence of left artificial knee joint; E78.5 Hyperlipidemia, unspecified; G47.33 Obstructive sleep apnea (adult) (pediatric); I95.9 Hypotension, unspecified; K21.9 Gastro-esophageal reflux disease without esophagitis; M62.461 Contracture of muscle, right lower leg; M25.761 Osteophyte, right knee; Z79.01 Long term (current) use of anticoagulants; Z90.49 Acquired absence of other specified parts of digestive tract; Z88.2 Allergy status to sulfonamides; Z82.49 Family history of ischemic heart disease and other diseases of the circulatory system; Z82.5 Family history of asthma and other chronic lower respiratory diseases; Z82.0 Family history of epilepsy and other diseases of the nervous system; Z82.61 Family history of arthritis; Z68.33 Body mass index [BMI] 33.0-33.9, adult; Z87.891 Personal history of nicotine dependence; Z92.3 Personal history of irradiation; Z83.3 Family history of diabetes mellitus; Z81.8 Family history of other mental and behavioral disorders; Z81.1 Family history of alcohol abuse and dependence; Z85.3 Personal history of malignant neoplasm of breast
CPT/HCPCS: 36415; 80048; 85014; 85018; 85049; 85610; A9270-GY; C1776; G8978-GP-CL; G8979-GP-CJ; G8987-GO-CJ; G8988-GO-CI; G8989-GO-CI; J0690; J1100; J1170; J1200; J1240; J1650; J1885; J2250; J2704; J2795; J3010

== ENCOUNTER 2018-03-31 06:45 | Day surgery (SDC) | payer MEDICARE, BC ==
--- NOTE | 2018-03-28 21:42 | HP ---
PREOPERATIVE HISTORY AND PHYSICAL: DATE OF ADMISSION: 03/31/18 CHIEF COMPLAINT: Right knee pain and stiffness. HISTORY OF PRESENT ILLNESS: Ms. Chester Flores is a 67-year-old female who is now 6 weeks status post right total knee arthroplasty on 02/08/18. She has a long history of right knee osteoarthritis with valgus deformity. In 2017, she suffered from periprosthetic right hip fracture along the distal femur. She did have several months of rehab and healing while we waited on the proper timing for the right knee. Intraoperatively, the patient was noted to have extensive stiffness of the knee with flexion barely to 80 degrees. Postoperatively, the patient has had the same trouble with arthrofibrosis and knee stiffness with flexion. She reports continued 10/10 pain when she flexes past 70 degrees. She is here today for her 6- week postop followup appointment and is interested in manipulation under anesthesia to obtain better knee flexion. PAST MEDICAL HISTORY: Hypertension, hypercholesterolemia, osteoarthritis, Lyme disease, rheumatoid arthritis, spine compression fractures, history of breast cancer, anxiety, depression, basal cell carcinoma. PAST SURGICAL HISTORY: Abdominal surgery, appendectomy, bowel surgery unspecified type, left total knee arthroplasty, right total hip arthroplasty, right periprosthetic femur fracture ORIF, T and A, breast lumpectomy, laminectomy, carpal tunnel release, total hip arthroplasty. CURRENT MEDICATIONS: 1. Melatonin 1 mg p.o. daily. 2. Lipitor 20 mg p.o. q.h.s. 3. Zoloft 25 mg p.o. daily. 4. Multivitamin 1 tablet p.o. daily. 5. Tiazac 180 mg p.o. daily. 6. Hydrochlorothiazide/triamterene 50 mg p.o. daily. 7. Tenormin 50 mg p.o. daily. 8. Celebrex 200 mg p.o. daily. 9. Gabapentin 300 mg p.o. daily. 10. Atenolol 25 mg p.o. daily. ALLERGIES: SULFA. FAMILY HISTORY: Heart disease, hypertension, COPD, Alzheimer's. SOCIAL HISTORY: The patient lives alone. She is a retired teacher. She denies tobacco, alcohol or recreational drug use. Normally has been ambulating with a cane. REVIEW OF SYSTEMS: Fourteen systems reviewed with the patient today. Positive for right hip pain, bilateral knee pain, depression, anxiety, right knee stiffness. Negative for fevers, chills, chest pain, shortness of breath, nausea , vomiting, headache, or dizziness. Otherwise, the patient reports review of systems is negative or not relevant. PHYSICAL EXAMINATION GENERAL: The patient is a well-nourished female, in no apparent distress. Alert and oriented x3. Pleasant mood and appropriate affect. Gait: The patient's gait is antalgic. She is favoring the right knee. She uses a cane. VITAL SIGNS: Height of 5 feet 6 inches tall, weight of 220 pounds, pulse 66, blood pressure 120/62. HEENT: Atraumatic, normocephalic. Pupils equal and reactive to light. NECK: Trachea midline. Neck is supple. No palpable adenopathy. LUNGS: Clear to auscultation in all lung hong. No wheezes, rubs, or rhonchi. HEART: S1 and S2. ABDOMEN: Soft, nontender, and nondistended. Bowel sounds in 4 quadrants. EXTREMITIES: Right lower extremity: The patient's knee incision is midline and intact, 5 degrees valgus deformity. She has 5 to 75 degrees of flexion today with pain and stiffness. Distally neurovascularly intact. DIAGNOSTIC STUDIES: Radiographs of the patient's right knee show cemented total knee arthroplasty with no obvious malalignment or periprosthetic fracture , small amount of heterotopic ossification along the anterior distal femur. ASSESSMENT AND PLAN: Ms. Chester Flores is a 67-year-old female 6 weeks status post right total knee arthroplasty on 02/08/18 with right knee stiffness and arthrofibrosis. The patient is not far from her preop range of motion, which may be the main problem. Today, we discussed the risks and benefits of manipulation under anesthesia of the right knee. She understands I feel the number 1 risk is that we do not improve the range of motion significantly. She also understands the risks of anesthesia as well as periprosthetic fracture with the manipulation. She wishes to proceed. I will contact Dr. Carolina's office to see if she has any objections to proceeding with this manipulation under anesthesia of the right total knee arthroplasty. We will tentatively schedule her for 03/31/18 manipulation under anesthesia of the right total knee arthroplasty. The patient will be n.p.o. after midnight. She understands the treatment plan and agrees with it. [id number]/[facility] #: [id number] [facility] THROAT HOSPITALMaribell
[2018-03-31] MEDS ORDERED: Dexamethasone IV* 4 MG/ML 1 ML (4 MG) ONE (07:56)
[2018-03-31] MEDS ORDERED: Midazolam* 1 MG/ML 2 ML VIAL (2 MG) ONE (07:56)
[2018-03-31] MEDS ORDERED: Ondansetron INJ* 2 MG/ML VIAL ONE (07:56)
[2018-03-31] MEDS ORDERED: Propofol* 10 MG/ML 20 ML BTL IV PUSH ONE (07:56)
[2018-03-31] MEDS ORDERED: fentaNYL* 50 MCG/ML 2 ML VIAL (100 MCG VIAL) ONE (07:56)
[2018-03-31] MEDS ORDERED: KETAMINE HCL* 50 MG/ML 10 ML VIAL ONE (07:56)
[2018-03-31] MEDS ORDERED: Ketorolac INJ* 30 MG/ML 1 ML VIAL ONE (07:56)
[2018-03-31] MEDS ORDERED: fentaNYL* 50 MCG/ML 2 ML VIAL (100 MCG VIAL) IV PRN (08:10)
[2018-03-31] MEDS ORDERED: DiMENhydriNATE IV* 50 MG/ML VIAL IV PUSH PRN (08:10)
[2018-03-31] MEDS ORDERED: PROCHLORPERAZINE INJ 5 MG/ML 2 ML VIAL IV PRN (08:10)
[2018-03-31] MEDS ORDERED: Acetaminophen TAB* 325 MG PO PRN (08:10)
[2018-03-31] MEDS ORDERED: Naloxone* 0.4 MG/ML 1 ML VIAL IV PRN (08:10)
[2018-03-31] MEDS ORDERED: oxyCODONE/Acetamin 5/325 MG* TAB PO PRN (08:10)
[2018-03-31] MEDS ORDERED: Ondansetron INJ* 2 MG/ML VIAL IV PRN (08:10)
[2018-03-31] MEDS ORDERED: Levalbuterol 0.63MG/3ML NEB* UNIT OF USE INH PRN (08:10)
[2018-03-31] MEDS ORDERED: diPHENhydraMINE IV* 50 MG/ML 1 ml VIAL (BENADRYL) IV PRN (08:10)
--- NOTE | 2018-03-31 09:35 | RAD ---
INDICATION: Right total knee manipulation under anesthesia. COMPARISON: Comparison is made with an x-ray study of the right knee from March 28, 2018. TECHNIQUE: 6.4 seconds of intermittent fluoroscopic guidance were provided and 5 spot films of the right knee were obtained in the operating room. FINDINGS: The patient is status post total right knee replacement surgery. The bones and prostheses are in normal alignment. IMPRESSION: INTRAOPERATIVE CONTROL FILMS. CPT II Codes: G9500
[2018-03-31 09:41] VITALS: BP 174/89
--- NOTE | 2018-04-01 17:55 | OP ---
OPERATIVE REPORT: DATE OF OPERATION: 03/31/18 DATE OF : 46 SURGEON: Dori Pablo MD ANESTHESIOLOGIST: Surekha Mccullough MD ANESTHESIA: General. PRE-OP DIAGNOSES: Right total knee arthroplasty with stiffness and arthrofibrosis. POST-OP DIAGNOSES: Right total knee arthroplasty with stiffness and arthrofibrosis. OPERATIVE PROCEDURE: Manipulation under anesthesia, right total knee arthroplasty. INDICATION: Ms. So Flores is a 67-year-old female who had right total knee arthroplasty i n mid January of this year. She is now about 6 weeks after surgery with continued limited mobility in t [facility] knee. The patient has a long history of injury to the right lower extremity and a long history o f arthritis in the right knee with valgus deformity. The patient had to delay the right total knee a rthroplasty by about a year since she had a kavitha-prosthetic fracture of the femur with ORIF at an out side facility. She developed continued muscle contractures, knee stiffness, and valgus deformity on the right knee before surgery. Intraoperatively, during the right total knee arthroplasty, the patien t began the surgery with 65 to 70 degrees of flexion. Postoperatively, the patient had gained about 80 degrees of flexion of knee. She is unhappy with this amount and elected to undergo manipulation u nder anesthesia. She understood the risks of the procedure included, but were not limited to, bleeding, infection, dam age to nearby structures, kavitha-prosthetic fracture, failure to improve the flexion, stroke, heart att ack, blood clot, and . She wished to proceed. INTRAOPERATIVE FINDINGS: Intraoperatively, the patient was noted to have extreme stiffness of the ri ght knee joint with quadriceps tightness. She was improved from about 75 degrees to 110 degrees of f lexion intraoperatively and this is documented. COMPLICATIONS: None. ESTIMATED BLOOD LOSS: None. SPECIMEN: None. DESCRIPTION OF PROCEDURE: Ms. Chester Flores was identified in the preanesthesia unit. Her right lowe r extremity was marked as the correct operative side. Informed consent was signed and placed in the c garrett. The patient was taken to the operating room and placed under general anesthesia. A preop time -out was made to correctly identify the patient's side and site. The knee was gently extended and fl exed multiple times with conservative increase in pressure with flexion each time. Scar tissue palpa cole and audibly broken up. It was noted that the quadriceps was extremely tight. The patient starte d at approximately 75 degrees of knee flexion and was advanced to approximately 110 degrees of knee f lexion. AP in C-arm views of the right knee confirmed there was kavitha-prosthetic fracture at the end of the procedure. Her anesthesia was reversed without difficulty. She was taken to the PACU in stab le condition. Intended weightbearing will be weightbearing as tolerated. Intended DVT prophylaxis w ill be her baseline aspirin. She will see her physical therapist tomorrow a.m. and follow up with me within 1 week's time for recheck. [id number]/[facility] #: [id number]
== END 2018-03-31 10:05 | disposition home or self-care (01) ==
LOC: OR 06:45
PROVIDERS: ATTEND Orthopaedic Surgery Adult Reconstructive Orthopaedic Surgery
DX: M24.661 Ankylosis, right knee (principal); Z96.651 Presence of right artificial knee joint; I10 Essential (primary) hypertension; E78.00 Pure hypercholesterolemia, unspecified; Z85.3 Personal history of malignant neoplasm of breast; F41.8 Other specified anxiety disorders; Z85.828 Personal history of other malignant neoplasm of skin; M06.9 Rheumatoid arthritis, unspecified
CPT/HCPCS: 76000; J1100; J1885; J2250; J2405; J2704; J3010

== ENCOUNTER → 2019-05-26 07:14 | Day surgery (SDC) | payer MEDICARE, BC ==
[~2019-05-26 07:14] MED LIST changes: +Acetaminophen TAB* 325 MG PO PRN; -Buffered Lidocaine 0.9% SYRIN* 5 ML/SYR SYRINGE INTRADERM ONE; +Buffered Lidocaine 1% SYRIN* 1 ML/SYRINGE INTRADERM ONE; +Bupivacaine 0.25% EPI 200,000* 30 ML SDV ONE; +Bupivacaine 0.25% SDV PF* 10 ML VIAL INJ ONE; +Cephalexin CAP* 500 MG PO SCH; +HYDROcodone/ACETAMIN 5-325 MG* 1 TAB PO PRN; +HYDROmorphone INJ1* 1 MG/ML SYRINGE IV PRN; +Heparin VIAL(*) 5000 UNITS/ML VIAL (FIVE THOUSAND) ONE; +KETAMINE HCL* 50 MG/ML 10 ML VIAL ONE; +Ketorolac INJ* 30 MG/ML 1 ML VIAL ONE; +Lactated Ringers 1000 ML Bag* 1,000 ML IV SCH; +Lidocaine 1% INJ* 10 MG/ML 30 ML SDV ONE; +Midazolam* 1 MG/ML 2 ML VIAL (2 MG) ONE; +Naloxone* 0.4 MG/ML 1 ML VIAL IV PRN; +Ondansetron INJ* 2 MG/ML VIAL IV PRN; +Propofol* 10 MG/ML 20 ML BTL ONE; +Propofol* 500 MG/50 ML BTL ONE; +ceFAZolin 2 GM in NS PREMIX(*) 2 GM/100 ML BAG IVPB ONE; +fentaNYL* 50 MCG/ML 2 ML VIAL (100 MCG VIAL) ONE; +oxyCODONE TAB* 5 MG TAB PO PRN
--- NOTE | 2019-05-26 11:15 | BRIEFOPN ---
Brief Operative/Procedure Note - Operation Details Pre-Op Diagnosis: Left breast DCIS Post-Op Diagnosis: same Procedures: wide re-excision left breast DCIS Surgeon(s)/Proceduralists: Fredy. Asst: MAR Jaffe Anesthesia: local-MAC Estimated Blood Loss: 5cc Findings: see dictation Specimen(s)/Culture(s) Description: left breast tissue Complications: none
[2019-05-26 11:33] VITALS: BP 126/59
--- NOTE | 2019-05-26 13:59 | OP ---
CC: [facility]; Gretchen Moses DO * DATE OF OPERATION: 05/26/19 - SDS DATE OF : 46 SURGEON: Ana Daniel MD COMMODITY SPECIALIST: KENNETH Womack student. PRE-OP DIAGNOSIS: Left breast ductal carcinoma in situ. POST-OP DIAGNOSIS: Left breast ductal carcinoma in situ. OPERATIVE PROCEDURE: Wide re-excision of left breast ductal carcinoma in situ. INDICATION: Ms. Chester Flores is a 68-year-old woman who recently underwent needle localization excision of her mammographic abnormality that proved positive for ductal carcinoma in situ with a positive margin, prompting the plan for surgical wide re-excision. DESCRIPTION OF PROCEDURE: She was brought to the operating room, placed on the OR table in the supine position, and given IV sedation. The left breast was prepped and draped in the usual sterile fashion. After infiltrated with local anesthetic, a curvilinear incision was made encompassing the previous scar and subcutaneous tissue was then divided with electrocautery to excise tissue from the medial extent of the cavity where the margin had been positive. Once the specimen was out, it was marked in usual fashion with an additional stitch to latrell the edge abutting the previous specimen. This specimen was handed off. Hemostasis was then achieved with electrocautery, and once this was adequate, additional clips were placed in the cavity to latrell the medial extent and additional local was instilled into the wound. Closure was accomplished with 3- 0 Vicryl in the subcutaneous layer and the skin was closed with 4-0 Prolene in the subcuticular fashion. Steri-Strips and a dry sterile dressing were applied. All sponge and instrument counts were correct. The patient tolerated the procedure well and was transferred to recovery in a stable condition. [id number]/[facility] #: [id number] [facility]
== END | disposition home or self-care (01) ==
LOC: OR 07:14
PROVIDERS: ATTEND Surgery
DX: D05.12 Intraductal carcinoma in situ of left breast (principal); G47.33 Obstructive sleep apnea (adult) (pediatric); M19.90 Unspecified osteoarthritis, unspecified site; Z87.891 Personal history of nicotine dependence; M06.9 Rheumatoid arthritis, unspecified; R93.1 Abnormal findings on diagnostic imaging of heart and coronary circulation; R06.00 Dyspnea, unspecified
CPT/HCPCS: 88307; A9270-GY; J0690; J1644; J1885; J2250; J2704; J3010; J3490

== ENCOUNTER 2020-04-09 12:21 | Observation (INO) ==
[~2020-04-09 12:21] MED LIST changes: -Acetaminophen TAB* 325 MG PO PRN; +Buffered Lidocaine 1% SYRIN 1 ml INTRADERM ONE; -Buffered Lidocaine 1% SYRIN* 1 ML/SYRINGE INTRADERM ONE; -Bupivacaine 0.25% EPI 200,000* 30 ML SDV ONE; -Bupivacaine 0.25% SDV PF* 10 ML VIAL INJ ONE; -Cephalexin CAP* 500 MG PO SCH; -HYDROcodone/ACETAMIN 5-325 MG* 1 TAB PO PRN; -HYDROmorphone INJ1* 1 MG/ML SYRINGE IV PRN; -Heparin VIAL(*) 5000 UNITS/ML VIAL (FIVE THOUSAND) ONE; -KETAMINE HCL* 50 MG/ML 10 ML VIAL ONE; -Ketorolac INJ* 30 MG/ML 1 ML VIAL ONE; -Lactated Ringers 1000 ML Bag* 1,000 ML IV SCH; +Lactated Ringers 1000 ml BAG 1,000 ML IV SCH; -Lidocaine 1% INJ* 10 MG/ML 30 ML SDV ONE; -Midazolam* 1 MG/ML 2 ML VIAL (2 MG) ONE; -Naloxone* 0.4 MG/ML 1 ML VIAL IV PRN; -Ondansetron INJ* 2 MG/ML VIAL IV PRN; -Propofol* 10 MG/ML 20 ML BTL ONE; -Propofol* 500 MG/50 ML BTL ONE; -ceFAZolin 2 GM in NS PREMIX(*) 2 GM/100 ML BAG IVPB ONE; -fentaNYL* 50 MCG/ML 2 ML VIAL (100 MCG VIAL) ONE; -oxyCODONE TAB* 5 MG TAB PO PRN
[2020-04-09] MEDS ORDERED: ceFAZolin 2 GM PREMIX 2 GM/50 ML BAG ONE (12:32)
[2020-04-09] MEDS ORDERED: Buffered Lidocaine 1% SYRIN 1 ml INTRADERM ONE (12:32)
[2020-04-09 13:50] LABS: BUN/Creatinine Ratio 28.6 (8-20); Calcium 9.7 mg/dL (8.6-10.3); EGFR African American 80.9 (>60); EGFR Non-African American 66.8 (>60); Potassium 3.4 mmol/L (3.5-5.0)
[2020-04-09] MEDS ORDERED: Propofol 10 mg/ml 100 ML BTL 200 ML ONE (15:05)
[2020-04-09] MEDS ORDERED: Bupivacaine 0.5% SDV PF 30ML VIAL ONE (15:05)
[2020-04-09] MEDS ORDERED: Ondansetron 4 mg VIAL 2 MG/ML 2 ml VIAL IV PRN ×2 (16:19→17:04)
[2020-04-09] MEDS ORDERED: diPHENhydraMINE IV 50 MG/ML 1 ml VIAL (BENADRYL) IV PRN (16:19)
[2020-04-09] MEDS ORDERED: oxyCODONE/Acetamin 5/325 mg TAB PO PRN (16:19)
[2020-04-09] MEDS ORDERED: diPHENhydraMINE 25 mg TAB PO PRN (16:19)
[2020-04-09] MEDS ORDERED: Ondansetron ODT 4 mg TAB 4 MG TAB PO PRN (16:19)
[2020-04-09] MEDS ORDERED: Magnesium Hydroxide LIQ 30 ML UDC PO PRN (16:19)
[2020-04-09] MEDS ORDERED: Morphine 2 MG/ML SYRINGE IV PRN (16:19)
[2020-04-09] MEDS ORDERED: Lactulose 30 ml UDC PO PRN (16:19)
[2020-04-09] MEDS ORDERED: Lactated Ringers 1000 ml BAG 1,000 ML IV SCH (17:00)
[2020-04-09] MEDS ORDERED: Naloxone 0.4 mg VIAL 0.4 mg/ml 1 ml VIAL IV PRN (17:04)
[2020-04-09] MEDS ORDERED: fentaNYL 100 mcg/2 ml 50 MCG/ML VIAL IV PRN (17:04)
[2020-04-09] MEDS ORDERED: Coenzyme Q10 CAP (NF) ** ENTER STREGNTH IN LABEL DIRECTIONS PO SCH (19:00)
[2020-04-09] MEDS ORDERED: HCTZ PO SCH (19:00)
[2020-04-09] MEDS ORDERED: TRIAMTERENE PO SCH (19:00)
[2020-04-09 19:04] LABS: Magnesium 1.9 mg/dL (1.9-2.7)
[2020-04-09] MEDS ORDERED: Dextran 70/Hypromellose Tears Eye Drops 15 ml BTL (for Artificials Tears) BOTH EYES PRN (19:38)
[2020-04-09] MEDS ORDERED: Potassium Chlor 20 meq TAB.ER PO ONE (20:44)
[2020-04-09] MEDS: Magnesium Hydroxide LIQ 30 ML UDC PO SCH (20:46)
[2020-04-09] MEDS: ceFAZolin 1 GM ADVAN 1 GM in NS 0.9% 50 ML 50 ML IVPB SCH (23:36)
[2020-04-10] MEDS ORDERED: Polyethylene Glycol 3350 17 GM PACKET PO PRN (00:01)
[2020-04-10] MEDS: oxyCODONE/Acetamin 5/325 mg TAB PO PRN ×2 (04:16→08:53)
[2020-04-10 06:45] LABS: Hematocrit 33 % (35-47); Hemoglobin 12.1 g/dL (12.0-16.0); Mean Platelet Volume 8.9 fL (7.4-10.4); Platelet Count 177 10^3/uL (150-450)
[2020-04-10 06:50] LABS: BUN/Creatinine Ratio 29.2 (8-20); Calcium 8.8 mg/dL (8.6-10.3); EGFR African American 96.6 (>60); EGFR Non-African American 79.9 (>60); Potassium 4.1 mmol/L (3.5-5.0)
[2020-04-10] MEDS: ceFAZolin 1 GM ADVAN 1 GM in NS 0.9% 50 ML 50 ML IVPB SCH (07:19)
[2020-04-10] MEDS: Magnesium Hydroxide LIQ 30 ML UDC PO SCH (08:09)
[2020-04-10] MEDS ORDERED: Vitamin THERAPEUTIC TAB PO SCH (09:00)
[2020-04-10 11:27] VITALS: BP 115/60
== END 2020-04-10 12:45 | disposition home or self-care (01) ==
LOC: AA 12:21 → INTOOBSV 12:21 → SSU 16:20
PROVIDERS: ADMIT Orthopaedic Surgery Adult Reconstructive Orthopaedic Surgery; ATTEND Orthopaedic Surgery Adult Reconstructive Orthopaedic Surgery